=== PATIENT | female | born 1965 | race Caucasian/White ===

== ENCOUNTER 2020-06-10 08:36 | Outpatient (REF) | payer OTHER, SELFPAY ==
[2020-06-10 11:03] LABS: MANUAL DIFF FLAG NO
[2020-06-10 11:09] LABS: Basophils Percent Auto 0.5 % (0-2); Eosinophils Absolute Auto 0.1 X10*3/uL (0.0-0.4); Eosinophils Percent Auto 1.6 % (0-4); Hematocrit 39.8 % (37-47); Hemoglobin 12.4 g/dl (12.0-16.0); Imm Gran Abs Auto 0.03 X10*3/uL (0.00-0.03); Imm Gran Pct Auto 0.4 % (0.0-0.4); Lymphocytes Absolute Auto 4.1 X10*3/uL (1.2-4.9); Lymphocytes Percent Auto 49.3 % (20-40); Mean Corpuscular HGB Conc 31.2 g/dl (31.0-35.0); Mean Corpuscular Hemoglobin 26.5 pg (27.0-33.0); Mean Platelet Volume 10.4 fL (9.4-12.3); Monocytes Absolute Auto 0.7 X10*3/uL (0.1-1.2); Monocytes Percent Auto 8.5 % (2-11); Neutrophils Absolute Auto 3.3 X10*3/uL (2.0-8.3); Neutrophils Percent Auto 39.7 % (45-73); Platelet Count 415 X10*3/uL (160-400); Red Blood Count 4.68 X10*6/uL (4.20-5.50); Red Cell Distribution Width 13.3 % (11.0-16.0); White Blood Count 8.3 X10*3/uL (4.8-10.8)
[2020-06-10 12:26] LABS: Alanine Aminotransferase 21 U/L (0-31); Albumin Level 4.6 g/dL (3.5-5.0); Alkaline Phosphatase 94 U/L (39-117); Anion Gap 14 (12-20); Aspartate Amino Transferase 18 U/L (5-31); Bilirubin Total 0.6 mg/dL (0.0-1.0); Blood Urea Nitrogen 20 mg/dL (9-16); Calcium 9.4 mg/dL (8.4-10.2); Carbon Dioxide 29 mmol/L (22-29); Chloride 100 mmol/L (96-108); Cholesterol 312 mg/dL; Estimated Glomerular Filt Rate > 60; Glucose Fasting 88 mg/dL (60-99); HDL Cholesterol 40 mg/dL; LDL Cholesterol Calculated 226 mg/dl; Potassium 4.3 mmol/l (3.3-5.1); Sodium 139 mmol/L (135-145); Total Protein 7.2 g/dL (6.5-8.0); Triglycerides 230 mg/dL
[2020-06-10 12:50] LABS: Ferritin 101 ng/mL (10-250); Vitamin D 25-OH Total 29.7 ng/mL (>30)
[2020-06-10 13:22] LABS: Vitamin B12 314 pg/mL (200-900)
== END 2020-06-10 08:37 | disposition home or self-care (01) ==
LOC: HO.WFDLDS 08:36
PROVIDERS: Visit Provider Internal Medicine
DX: I10 Essential (primary) hypertension (principal); E78.2 Mixed hyperlipidemia; M15.9 Polyosteoarthritis, unspecified; M79.605 Pain in left leg; M79.604 Pain in right leg
CPT/HCPCS: 36415; 80053; 80061; 82306; 82607; 82728; 85025

== ENCOUNTER 2020-07-02 07:59 | Outpatient (REF) | payer OTHER, SELFPAY ==
[2020-07-02 10:25] LABS: MANUAL DIFF FLAG NO
[2020-07-02 10:31] LABS: Basophils Percent Auto 0.5 % (0-2); Eosinophils Absolute Auto 0.1 X10*3/uL (0.0-0.4); Hematocrit 39.4 % (37-47); Hemoglobin 12.3 g/dl (12.0-16.0); Imm Gran Abs Auto 0.02 X10*3/uL (0.00-0.03); Imm Gran Pct Auto 0.3 % (0.0-0.4); Lymphocytes Absolute Auto 3.5 X10*3/uL (1.2-4.9); Lymphocytes Percent Auto 46.1 % (20-40); Mean Corpuscular HGB Conc 31.2 g/dl (31.0-35.0); Mean Corpuscular Hemoglobin 26.8 pg (27.0-33.0); Mean Corpuscular Volume 85.8 fL (80-98); Mean Platelet Volume 10.4 fL (9.4-12.3); Monocytes Absolute Auto 0.8 X10*3/uL (0.1-1.2); Monocytes Percent Auto 10.3 % (2-11); Neutrophils Absolute Auto 3.2 X10*3/uL (2.0-8.3); Neutrophils Percent Auto 41.8 % (45-73); Platelet Count 402 X10*3/uL (160-400); Red Blood Count 4.59 X10*6/uL (4.20-5.50); Red Cell Distribution Width 13.4 % (11.0-16.0); White Blood Count 7.6 X10*3/uL (4.8-10.8)
[2020-07-02 11:17] LABS: C Reactive Protein 0.76 mg/dL (< or = 0.50)
[2020-07-02 12:01] LABS: Erythrocyte Sedimentation Rate 19 MM/HR (0-20)
== END 2020-07-02 08:00 | disposition home or self-care (01) ==
LOC: HO.WFDLDS 07:59
PROVIDERS: PCP Internal Medicine; Referring Provider Internal Medicine; Visit Provider Orthopaedic Surgery
DX: M25.551 Pain in right hip (principal)
CPT/HCPCS: 36415; 85025; 85652; 86140

== ENCOUNTER 2020-12-13 07:34 | Outpatient (REF) | payer OTHER, SELFPAY ==
[2020-12-13 11:01] LABS: Anion Gap 14 (12-20); Blood Urea Nitrogen 23 mg/dL (9-16); Calcium 9.9 mg/dL (8.4-10.2); Carbon Dioxide 28 mmol/L (22-29); Chloride 101 mmol/L (96-108); Cholesterol 315 mg/dL; Estimated Glomerular Filt Rate > 60; Glucose Fasting 89 mg/dL (60-99); HDL Cholesterol 47 mg/dL; LDL Cholesterol Calculated 233 mg/dl; Potassium 4.3 mmol/L (3.3-5.1); Sodium 139 mmol/L (135-145); Triglycerides 177 mg/dL
[2020-12-14 10:57] LABS: Vitamin D 25-OH Total 31.9 ng/mL (>30)
== END 2020-12-13 07:35 | disposition home or self-care (01) ==
LOC: HO.WFDLDS 07:34
PROVIDERS: Visit Provider Internal Medicine
DX: Z00.01 Encounter for general adult medical examination with abnormal findings (principal); E55.9 Vitamin D deficiency, unspecified; M19.90 Unspecified osteoarthritis, unspecified site; E78.9 Disorder of lipoprotein metabolism, unspecified; I10 Essential (primary) hypertension; E66.9 Obesity, unspecified
CPT/HCPCS: 36415; 80048; 80061; 82306

== ENCOUNTER → 2021-06-03 11:04 | Outpatient (BNVA) | payer OTHER, SELFPAY | PROVIDERS: PCP Internal Medicine; Visit Provider Dietitian, Registered | DX: E66.9 Obesity, unspecified (principal); Z68.36 Body mass index [BMI] 36.0-36.9, adult | CPT/HCPCS: 97802 ==

== ENCOUNTER 2021-07-30 10:06 | Outpatient (REF) | payer OTHER, SELFPAY ==
--- NOTE | ~2021-07-30 | XR_ITS ---
EXAMINATION: XR CHEST CLINICAL INFORMATION: Shortness of breath COMPARISON: Chest x-ray on 07/04/2019 TECHNIQUE: 2 views of the chest were obtained. FINDINGS: No significant abnormality is noted involving the heart, lungs, mediastinum, bony thorax or soft tissues. XR/XR chest 2V IMPRESSION: Unremarkable examination.
== END 2021-07-30 10:07 | disposition home or self-care (01) ==
LOC: HO.HMGCX 10:06
PROVIDERS: PCP Internal Medicine; Visit Provider Internal Medicine
DX: R06.02 Shortness of breath (principal)
CPT/HCPCS: 71046

== ENCOUNTER 2021-10-19 07:56 | Outpatient (REF) | payer OTHER, SELFPAY ==
[2021-10-19 11:34] LABS: Appearance Urine CLOUDY; Color Urine YELLOW; Glucose Urine UA NEG (NEG); Leukocyte Esterase Urine NEG (NEG); Nitrite Urine NEG (NEG); PH 5.5 (5.0-8.0); Specific Gravity - Urine 1.025 (1.005-1.025); Urine Blood NEG (NEG); Urine Ketones NEG (NEG); Urine Protein NEG (NEG-TRACE)
[2021-10-19 11:42] LABS: MANUAL DIFF FLAG NO
[2021-10-19 11:58] LABS: Basophils Percent Auto 0.4 % (0-2); Eosinophils Absolute Auto 0.1 X10*3/uL (0.0-0.4); Eosinophils Percent Auto 1.4 % (0-4); Hemoglobin 13.3 g/dl (12.0-16.0); Imm Gran Abs Auto 0.01 X10*3/uL (0.00-0.03); Imm Gran Pct Auto 0.1 % (0.0-0.4); Lymphocytes Absolute Auto 3.7 X10*3/uL (1.2-4.9); Mean Corpuscular HGB Conc 31.7 g/dl (31.0-35.0); Mean Corpuscular Hemoglobin 26.1 pg (27.0-33.0); Mean Corpuscular Volume 82.5 fL (80.0-98.0); Mean Platelet Volume 10.8 fL (9.4-12.3); Monocytes Absolute Auto 0.7 X10*3/uL (0.1-1.2); Monocytes Percent Auto 9.4 % (2-11); Neutrophils Absolute Auto 2.4 x10*3/uL (2.0-8.3); Neutrophils Percent Auto 34.7 % (45-73); Platelet Count 379 X10*3/uL (160-400); Red Blood Count 5.09 X10*6/uL (4.20-5.50); Red Cell Distribution Width 13.7 % (11.0-16.0); White Blood Count 6.9 X10*3/uL (4.8-10.8)
[2021-10-19 12:27] LABS: Alanine Aminotransferase 23 U/L (0-31); Albumin Level 4.7 g/dL (3.5-5.0); Alkaline Phosphatase 77 U/L (39-117); Anion Gap 13 (12-20); Aspartate Amino Transferase 21 U/L (5-31); Bilirubin Total 0.5 mg/dL (0.0-1.0); Blood Urea Nitrogen 20 mg/dL (9-16); C Reactive Protein 0.18 mg/dL (< or = 0.50); Calcium 10.1 mg/dL (8.4-10.2); Carbon Dioxide 30 mmol/L (22-29); Chloride 100 mmol/L (96-108); Cholesterol 323 mg/dL; Estimated Glomerular Filt Rate > 60; Glucose Fasting 100 mg/dL (60-99); HDL Cholesterol 44 mg/dL; LDL Cholesterol Calculated 235 mg/dl; Potassium 3.9 mmol/L (3.3-5.1); Rheumatoid Factor 40.2 IU/mL (<15.0); Sodium 139 mmol/L (135-145); Total Protein 7.5 g/dL (6.5-8.0); Triglycerides 221 mg/dL
[2021-10-19 12:37] LABS: Erythrocyte Sedimentation Rate 7 MM/HR (0-20)
[2021-10-19 12:41] LABS: TSH reflex Free T4 1.85 uIU/mL (0.32-4.0); Vitamin D 25-OH Total 18.4 ng/mL (>30)
[2021-10-21 13:46] LABS: Anti Nuclear Antibody Screen NEGATIVE (NEGATIVE)
== END 2021-10-19 07:57 | disposition home or self-care (01) ==
LOC: HO.WFDLDS 07:56
PROVIDERS: Visit Provider Internal Medicine
DX: M25.50 Pain in unspecified joint (principal); E78.00 Pure hypercholesterolemia, unspecified; E55.9 Vitamin D deficiency, unspecified; I10 Essential (primary) hypertension
CPT/HCPCS: 36415; 80053; 80061; 81003; 82306; 84443; 84550; 85025; 85652; 86038; 86039; 86140; 86431

== ENCOUNTER 2021-12-07 08:06 | Outpatient (REF) | payer OTHER, SELFPAY ==
--- NOTE | ~2021-12-07 | US_ITS ---
EXAMINATION: US ABDOMEN COMPLETE CLINICAL INFORMATION: Right upper quadrant pain. COMPARISON: Ultrasound abdomen complete 07/17/2019. TECHNIQUE: Real-time imaging of the abdominal viscera. FINDINGS: PANCREAS: Normal. ABDOMINAL AORTA: The proximal, mid, and distal segments are normal in caliber. INFERIOR VENA CAVA: Visualized portions are normal. LIVER: The liver is normal in size. The liver contour is normal. Parenchymal echogenicity is normal. No focal hepatic lesion. There is no intrahepatic biliary duct dilatation seen. GALLBLADDER: Normal. The gallbladder is physiologically distended without evidence of stones, sludge, polyps, wall thickening or pericholecystic fluid. COMMON BILE DUCT: Normal in caliber measuring 0.3 cm in diameter. RIGHT KIDNEY: Normal. No hydronephrosis. No renal calculi or focal parenchymal lesions. The kidney measures 10.1 cm in maximum dimension. LEFT KIDNEY: Normal. No hydronephrosis. No renal calculi or focal parenchymal lesions. The kidney measures 11.6 cm in maximum dimension. SPLEEN: Normal. The spleen measures 11.3 cm in maximum dimension. FREE FLUID: None. US/US abdomen complete IMPRESSION: No cholelithiasis or evidence of acute cholecystitis.
== END 2021-12-07 08:07 | disposition home or self-care (01) ==
LOC: HO.US 08:06
PROVIDERS: Visit Provider Internal Medicine
DX: R10.11 Right upper quadrant pain (principal)
CPT/HCPCS: 76700

== ENCOUNTER 2022-01-26 07:05 | Outpatient (REF) | payer OTHER, SELFPAY ==
[2022-01-26 11:42] LABS: Alanine Aminotransferase 22 U/L (0-31); Albumin Level 4.5 g/dL (3.5-5.0); Alkaline Phosphatase 78 U/L (39-117); Anion Gap 12 (12-20); Aspartate Amino Transferase 21 U/L (5-31); Bilirubin Total 0.5 mg/dL (0.0-1.0); Blood Urea Nitrogen 16 mg/dL (9-16); C Reactive Protein 0.29 mg/dL (< or = 0.50); Calcium 9.5 mg/dL (8.4-10.2); Carbon Dioxide 29 mmol/L (22-29); Chloride 101 mmol/L (96-108); Cholesterol 336 mg/dL; Estimated Glomerular Filt Rate > 60; Glucose Fasting 91 mg/dL (60-99); HDL Cholesterol 41 mg/dL; LDL Cholesterol Calculated 241 mg/dl; Potassium 4.3 mmol/L (3.3-5.1); Rheumatoid Factor 38.8 IU/mL (<15.0); Sodium 138 mmol/L (135-145); Triglycerides 271 mg/dL; Uric Acid 7.7 mg/dL (2.4-5.7)
[2022-01-26 12:09] LABS: TSH reflex Free T4 1.72 uIU/mL (0.32-4.0); Vitamin D 25-OH Total 28.2 ng/mL (>30)
[2022-01-26 12:28] LABS: Erythrocyte Sedimentation Rate 12 MM/HR (0-20)
[2022-01-30 17:22] LABS: Cyclic Citrullinated Peptide <16 UNITS
[2022-01-31 12:31] LABS: Anti Nuclear Antibody Screen NEGATIVE (NEGATIVE)
== END 2022-01-26 07:06 | disposition home or self-care (01) ==
LOC: HO.WFDLDS 07:05
PROVIDERS: Visit Provider Internal Medicine
DX: E78.00 Pure hypercholesterolemia, unspecified (principal); E55.9 Vitamin D deficiency, unspecified; M10.9 Gout, unspecified; M79.7 Fibromyalgia; M25.50 Pain in unspecified joint
CPT/HCPCS: 36415; 80053; 80061; 82306; 84443; 84550; 85652; 86038; 86039; 86140; 86200; 86431

== ENCOUNTER 2023-02-01 13:49 | Outpatient (AMB) | payer OTHER, SELFPAY ==
[2023-02-01 13:51] VITALS: BP 110/78; PULSE 70; O2SAT 98; BMI 36.2
--- NOTE | 2023-02-01 13:51 | MHC.PC.OV ---
Vital Signs 02/01/23 13:51 Height 5 ft 4 in Weight 211 lb 2 oz BMI 36.2 BP 110/78 Blood Pressure Location Lt brachial Position Sitting Pulse 70 Pulse Source Pulse Oximeter Pulse Oximetry (%) 98 Oxygen Delivery Method Room Air Intake Visit Reasons: ear infection Transportation Escort Required: No Accompanied by: Self / Same As Patient Allergies erythromycin base [ERYTHROMYCIN BASE] Allergy (Unknown, Verified 02/01/23 13:51) UNKNOWN latex [LATEX] Allergy (Unknown, Verified 02/01/23 13:51) UNKNOWN meperidine [From DEMEROL] Allergy (Unknown, Verified 02/01/23 13:51) UNKNOWN statin Allergy (Intermediate, Uncoded 08/30/22 17:19) joint pains, lethargic Tobacco use date assessed: 02/01/23 Dental Screening Dental Screen Date: 02/01/23 Did you have a dental visit in the last 12 months?: Yes Did you have a dental problem in the last 6 months where you did not have access to dental care?: No Was dental information given to patient?: Patient has dentist HPI ear infection HPI Details left ear pain for a few weeks [facility] Medical History Benign essential hypertension Coronary artery disease GERD (gastroesophageal reflux disease) Hypertension, essential Lumbar spinal stenosis Obesity (BMI 30-39.9) Osteoarthritis Pure hypercholesterolemia RUQ abdominal pain Surgical History History of section History of ear surgery History of hip surgery History of knee surgery History of partial hysterectomy History of tonsillectomy Hx of heart artery stent (~05/18/22) Hx of lumbosacral spine surgery (~2018) S/P total left hip arthroplasty (~01/21/21) S/P total right hip arthroplasty (~09/2020) Family History Father CVD (cardiovascular disease) History of quadruple bypass Mother CVD (cardiovascular disease) Melanoma Brother No problems noted. Brother No problems noted. Son No problems noted. Son No problems noted. Paternal Aunt Breast cancer Social History Housing: House Alcohol intake: current Alcohol intake frequency: holidays/special occasions only Patient Tobacco Use Status: Never used Tobacco e-Cigarette/Vaping Use: Never Used Second Hand Smoke Exposure: No service: No Current occupational status: employed Current occupational exposures/hazards: No Cognitive needs: No Hearing needs: No Vision needs: Yes Questionnaire PHQ-9 Over the last 2 weeks, how often have you been bothered by any of the following problems? 1. Little interest or pleasure in doing things: not at all 2. Feeling down, depressed, or hopeless: not at all 3. Trouble falling or staying asleep, or sleeping too much: not at all 4. Feeling tired or having little energy: not at all 5. Poor appetite or overeating: not at all 6. Feeling bad about yourself - or that you are a failure or have let yourself or your family down: not at all 7. Trouble concentrating on things, such as reading the newspaper or watching television: not at all 8. Moving or speaking so slowly that other people could have noticed. Or the opposite - being so fidgety or restless that you have been moving around a lot more than usual: not at all 9. Thoughts that you would be better off or of hurting yourself in some way: not at all Total score: 0 Depression Screening Interpretation: Negative 37321 - PHQ-9 Billing: Yes Source: Developed by Drs. Hernando Lilly, Macy Sousa, Stevie Sloan and colleagues, with an educational joseline from [employer]. Thrive Questionnaire Date Thrive assessed: 02/01/23 I am a: Patient What is your living situation today?: I have a steady place to live Within the past 12 months, did the food you bought not last and you didn't have the money to get more?: Never true Within the past 12 months, did you worry whether your food would run out before you got money to buy more?: Never true Do you have trouble paying for medicines?: No Do you have trouble getting transportation to medical appointments?: No Do you have trouble paying your heating and electricity bill?: No Do you have trouble taking care of your child, family member or friend?: No Do you have trouble with day-to-day activities such as bathing, preparing meals, shopping, managing finances, etc.?: No Are you currently unemployed and looking for a job?: No Are you interested in more education?: No Please select the resources that you would like help with: None Currently or been in a relationship where the following occur: no concerns reported AUDIT C Alcohol Use Questionnaire (AUDIT-C) 1. How often do you have a drink containing alcohol?: Monthly or less 2. How many drinks containing alcohol do you have on a typical day when you are drinking?: 1 or 2 3. How often do you have six or more drinks on one occasion?: Never Total Score: 1 Score Reviewed/Action Taken: Yes YARELI-7 AMB Questionnaire YARELI-7 Date YARELI - 7 assessed: 02/01/23 Feeling nervous, anxious, or on edge: 0 = Not at all Not being able to stop or control worryin = Not at all Worrying too much about different things: 0 = Not at all Trouble relaxin = Not at all Being so restless that it is hard to sit still: 0 = Not at all Becoming easily annoyed or irritable: 0 = Not at all Feeling afraid as if something awful might happen: 0 = Not at all Total YARELI-7 score (0-4 normal; 5-9 mild; 10-14 moderate; 15-21 severe): 0 Source: Developed by Drs. Hernando Lilly, aMcy Sousa, Stevie Sloan and colleagues, with an educational joseline from [employer]. Review of Systems Const Denies chills, Denies headache(s) and Denies weight loss ENT Denies headache(s) Card Denies chest pain, Denies syncope, Denies irregular heart rhythm and Denies dyspnea Resp Denies chest congestion, Denies cough and Denies dyspnea GI Denies abdominal pain, Denies change in stool character, Denies nausea and Denies vomiting Musc Denies deformity and Denies joint swelling Neuro Denies syncope and Denies headache(s) Physical exam (Primary Care) Vital Signs: Last Vital Signs Pulse 70 02/01/23 13:51 BP 110/78 02/01/23 13:51 Pulse Ox 98 02/01/23 13:51 Oxygen Delivery Method Room Air 02/01/23 13:51 BMI result Body Mass Index 36.2 Tobacco/Smoking Status: Tobacco use Status Tobacco use date assessed 08/30/22 08/30/22 16:19 Patient Tobacco Use Status Never used Tobacco 08/30/22 16:19 e-Cigarette/Vaping Use Never Used 08/30/22 16:19 Depression Screening Interpretation: Negative Thrive Assessment: Date of Thrive Assessment Date Thrive assessed 08/30/22 08/30/22 16:19 Currently or been in a relationship where the following occur: no concerns reported Const General: cooperative, comfortable and no acute distress HENMT Other: left ear inflam Eyes General: appearance normal, both eyes and all related structures Neck Neck: Yes normal visual inspection Assessment and Plan Assessment & Plan (1) Ear pain: Code(s): H92.09 - Otalgia, unspecified ear Plan: rx sent Medications: New amoxicillin 250 mg PO Q8H 30 caps 0RF Coding Level of Care Code Est Pt Level 3 (17463) Diagnoses Ear pain H92.09
== END 2023-02-01 14:57 | disposition home or self-care (01) ==
PROVIDERS: PCP Internal Medicine; Visit Provider Internal Medicine
DX: H92.09 Otalgia, unspecified ear (principal)
CPT/HCPCS: 99213

== ENCOUNTER 2023-02-27 16:46 | Outpatient (AMB) | payer OTHER, SELFPAY ==
[2023-02-27 16:46] VITALS: BP 128/80; PULSE 75; O2SAT 98; BMI 36.4
--- NOTE | 2023-02-27 16:46 | MHC.PC.OV ---
Vital Signs 02/27/23 16:46 Height 5 ft 4 in Weight 212 lb BMI 36.4 BP 128/80 Blood Pressure Location Lt brachial Position Sitting Pulse 75 Pulse Source Pulse Oximeter Pulse Oximetry (%) 98 Oxygen Delivery Method Room Air Intake Visit Reasons: CAD, hyperlipidemia Electrical Continuity Tester Required: No Accompanied by: Self / Same As Patient Allergies erythromycin base [ERYTHROMYCIN BASE] Allergy (Unknown, Verified 02/27/23 17:08) UNKNOWN latex [LATEX] Allergy (Unknown, Verified 02/27/23 17:08) UNKNOWN meperidine [From DEMEROL] Allergy (Unknown, Verified 02/27/23 17:08) UNKNOWN statin Allergy (Intermediate, Uncoded 02/27/23 17:08) joint pains, lethargic Medication List - Last Reconciled 02/27/23 by Vinny Avila MD aspirin (Adult Aspirin Regimen) 81 mg PO DAILY evolocumab (Repatha SureClick) 140 mg subcut Q2W hydrochlorothiazide 12.5 mg (1/2 x 25 mg) PO DAILY metoprolol tartrate 50 mg PO BID multivitamin (Daily Multi-Vitamin tablet) 1 tab PO DAILY ticagrelor (Brilinta) 90 mg PO BID Tobacco use date assessed: 02/27/23 Dental Screening Dental Screen Date: 02/27/23 Did you have a dental visit in the last 12 months?: Yes Did you have a dental problem in the last 6 months where you did not have access to dental care?: No Was dental information given to patient?: Patient has dentist HPI CAD, hyperlipidemia HPI Details Patient comes in today for her follow up visit States that she feels okay Relates that she came into the office for left ear pain last month - was seen by Dr. Bermudez and prescribed Amoxicillin 250 mg Q 8 hours x 5 days, which she states helped slightly States that she currently still has recurrent left ear pain Was able to schedule an appointment with ENT but states that they cannot get her in until sometime in April 2023 although she is on a cancellation list and is hoping that she can be seen sooner States that she feels okay otherwise She denies any fever or sore throat; denies any headaches or dizziness Denies any chest pains, no SOB No nausea/vomiting, no abdominal pain No change in bowel habits noted Had some follow up labs done at [facility] back in September 2022 - total cholesterol then was around 151 mg/dl, TG at 207 mg/dl, HDL at 47 mg/dl and LDL cholesterol at 63 mg/dl States that she has follow up appt with cardiology at [facility] and with Dr. Garcia for hematology follow up scheduled in April 2023 as well [facility] Medical History Benign essential hypertension Coronary artery disease GERD (gastroesophageal reflux disease) Hypertension, essential Lumbar spinal stenosis Obesity (BMI 30-39.9) Osteoarthritis Pure hypercholesterolemia RUQ abdominal pain Surgical History History of section History of ear surgery History of hip surgery History of knee surgery History of partial hysterectomy History of tonsillectomy Hx of heart artery stent (~05/18/22) Hx of lumbosacral spine surgery (~2018) S/P total left hip arthroplasty (~01/21/21) S/P total right hip arthroplasty (~09/2020) Family History Father CVD (cardiovascular disease) History of quadruple bypass Mother CVD (cardiovascular disease) Melanoma Brother No problems noted. Brother No problems noted. Son No problems noted. Son No problems noted. Paternal Aunt Breast cancer Social History Housing: House Alcohol intake: current Alcohol intake frequency: holidays/special occasions only Patient Tobacco Use Status: Never used Tobacco e-Cigarette/Vaping Use: Never Used Second Hand Smoke Exposure: No service: No Current occupational status: employed Current occupational exposures/hazards: No Cognitive needs: No Hearing needs: No Vision needs: Yes Questionnaire PHQ-9 Over the last 2 weeks, how often have you been bothered by any of the following problems? 1. Little interest or pleasure in doing things: not at all 2. Feeling down, depressed, or hopeless: not at all 3. Trouble falling or staying asleep, or sleeping too much: not at all 4. Feeling tired or having little energy: not at all 5. Poor appetite or overeating: not at all 6. Feeling bad about yourself - or that you are a failure or have let yourself or your family down: not at all 7. Trouble concentrating on things, such as reading the newspaper or watching television: not at all 8. Moving or speaking so slowly that other people could have noticed. Or the opposite - being so fidgety or restless that you have been moving around a lot more than usual: not at all 9. Thoughts that you would be better off or of hurting yourself in some way: not at all Total score: 0 Depression Screening Interpretation: Negative [id number] - PHQ-9 Billing: Yes Source: Developed by Drs. Hernando Lilly, Macy Sousa, Stevie Sloan and colleagues, with an educational joseline from [employer]. Thrive Questionnaire Date Thrive assessed: 02/27/23 I am a: Patient What is your living situation today?: I have a steady place to live Within the past 12 months, did the food you bought not last and you didn't have the money to get more?: Never true Within the past 12 months, did you worry whether your food would run out before you got money to buy more?: Never true Do you have trouble paying for medicines?: No Do you have trouble getting transportation to medical appointments?: No Do you have trouble paying your heating and electricity bill?: No Do you have trouble taking care of your child, family member or friend?: No Do you have trouble with day-to-day activities such as bathing, preparing meals, shopping, managing finances, etc.?: No Are you currently unemployed and looking for a job?: No Are you interested in more education?: No Please select the resources that you would like help with: None Currently or been in a relationship where the following occur: no concerns reported AUDIT C Alcohol Use Questionnaire (AUDIT-C) 1. How often do you have a drink containing alcohol?: Monthly or less 2. How many drinks containing alcohol do you have on a typical day when you are drinking?: 1 or 2 3. How often do you have six or more drinks on one occasion?: Never Total Score: 1 Score Reviewed/Action Taken: Yes YARELI-7 AMB Questionnaire YARELI-7 Date YARELI - 7 assessed: 02/27/23 Feeling nervous, anxious, or on edge: 0 = Not at all Not being able to stop or control worryin = Not at all Worrying too much about different things: 0 = Not at all Trouble relaxin = Not at all Being so restless that it is hard to sit still: 0 = Not at all Becoming easily annoyed or irritable: 0 = Not at all Feeling afraid as if something awful might happen: 0 = Not at all Total YARELI-7 score (0-4 normal; 5-9 mild; 10-14 moderate; 15-21 severe): 0 Source: Developed by Drs. Hernando Lilly, Macy Sousa, Stevie Sloan and colleagues, with an educational joseline from [employer]. Review of Systems Const Denies fatigue, Denies fever(s) and Denies headache(s) ENT Denies dysphagia, Denies dizziness, Reports otalgia (in the left ear), Denies headache(s), Denies odynophagia and Denies sore throat Card Denies chest pain, Denies palpitations and Denies dyspnea Resp Denies cough and Denies dyspnea GI Denies abdominal pain, Denies constipation, Denies dysphagia, Denies heartburn, Denies diarrhea, Denies nausea, Denies odynophagia and Denies vomiting Denies difficulty voiding, Denies nocturia and Denies dysuria Musc Reports back pain (on and off) Neuro Denies dizziness and Denies headache(s) Endo Denies fatigue and Denies palpitations Physical exam (Primary Care) Vital Signs: Last Vital Signs Pulse 75 02/27/23 16:46 BP 128/80 02/27/23 16:46 Pulse Ox 98 02/27/23 16:46 Oxygen Delivery Method Room Air 02/27/23 16:46 BMI result Body Mass Index 36.4 Tobacco/Smoking Status: Tobacco use Status Tobacco use date assessed 02/27/23 02/27/23 16:52 Patient Tobacco Use Status Never used Tobacco 02/27/23 16:52 e-Cigarette/Vaping Use Never Used 02/27/23 16:52 PHQ-9: PHQ-9 Score PHQ-9: Total score 0 02/27/23 17:08 Depression Screening Interpretation: Negative Thrive Assessment: Date of Thrive Assessment Date Thrive assessed 02/27/23 02/27/23 16:52 Currently or been in a relationship where the following occur: no concerns reported Const General: no acute distress and alert HENMT Ears: TM's normal bilaterally and EAC's normal Throat: Yes posterior oropharynx normal, Yes tonsils normal (no TP congestion) and No postnasal drainage Neck Neck: Yes no lymphadenopathy and Yes supple Resp Auscultation: clear to auscultation bilaterally, no rales and no wheezes Cardio Rate: regular rate Rhythm: regular rhythm Heart sounds: no murmurs GI Palpation (GI): Soft to palpation and nontender Auscultation: normal bowel sounds Skin Rashes: no rashes Extrem General: Yes no clubbing, cyanosis or edema Assessment and Plan Assessment & Plan (1) Coronary artery disease: Comment: S/P PCI with stenting (FABRIZIO) of the RCA on 05/18/2022 Code(s): I25.10 - Atherosclerotic heart disease of [place] coronary artery without angina pectoris Qualifiers: Associated angina: with unspecified form of angina Coronary Disease-Associated Artery/Lesion type: [place] artery [place] vs. transplanted heart: [place] heart Qualified Code(s): I25.119 - Atherosclerotic heart disease of [place] coronary artery with unspecified angina pectoris Plan: S/P PCI with stenting (FABRIZIO) of the RCA on 05/18/22; completed cardiac rehab earlier this year Continue Aspirin 81 mg QD, Brilinta 90 mg BID and Metoprolol 50 mg BID Continue HCTZ 25 mg 1/2 tablet QD Follow up with cardiology (Dr. Leal) as scheduled (2) Pure hypercholesterolemia: Comment: Unable to tolerate statins in the past Code(s): E78.00 - Pure hypercholesterolemia, unspecified Plan: Reinforced low cholesterol diet Has been unable to tolerate multiple statins in the past (myalgia) as well as Ezetimibe Is presently on injections of Repatha every 2 weeks and has been tolerating her Rx well so far with no acute issues Had her fasting lipid profile last done at [facility] back in September 2022 and results are as follows - TC 151, TG 207, HDL 47, LDL 63 Will have patient recheck labs and fasting lipids again in a few months for follow-up - advised that she can get these done together with any other labs from Cardiology and Hematology at the same time (3) Benign essential hypertension: Code(s): I10 - Essential (primary) hypertension Plan: Reinforced low sodium diet - goal is systolic BP of 120 mm or less Continue Metoprolol 50 mg BID and HCTZ 25 mg 1/2 tablet (12.5 mg) QD She is reminded to monitor her BP regularly (4) Lymphocytosis: Code(s): D72.820 - Lymphocytosis (symptomatic) Plan: Has been referred to and seen by Dr. 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 Garcia once or twice a year to monitor for any progression of her condition (5) Elevated rheumatoid factor: Code(s): R76.8 - Other specified abnormal immunological findings in serum Plan: Rheumatoid factor has been elevated but her CCP Ab was normal and her ESR and CRP levels were also low when previously checked Patient was reasssured that based on these results, she DOES NOT appear to have any evidence of RA at present and we will continue to monitor these regularly/yearly for any changes Can also consider referral to rheumatology for further evaluation if anything changes (6) Left ear pain: Code(s): H92.02 - Otalgia, left ear Plan: Was treated with oral Amoxicillin 250 mg TID last month with little relief Will start patient empirically on Ciprodex ear drops 4 drops into the left ear BID x 7 days She had an appointment scheduled to see ENT in April 2023 for further evaluation of her ear symptoms; she is on a cancellation list to be seen sooner if someone cancels the appointment (7) Vitamin D deficiency: Code(s): E55.9 - Vitamin D deficiency, unspecified Plan: Continue Vitamin D3 2000 units QD (8) Osteoarthritis: Comment: S/P bilateral hip arthroplasty at [facility] in [place], [place] Code(s): M19.90 - Unspecified osteoarthritis, unspecified site Qualifiers: Osteoarthritis location: unspecified site Osteoarthritis type: primary Qualified Code(s): M19.91 - Primary osteoarthritis, unspecified site Plan: Was taken off Celecoxib 200 mg QD after her PCI Is now taking OTC Tylenol PRN for pain (9) Lumbar spinal stenosis: Comment: S/P laminectomy at [facility] in [place], [place] in 2019 Code(s): M48.061 - Spinal stenosis, lumbar region without neurogenic claudication Qualifiers: Neurogenic claudication status: without neurogenic claudication Qualified Code(s): M48.061 - Spinal stenosis, lumbar region without neurogenic claudication Plan: Reinforced activity and weight-lifting restrictions (10) Hyperuricemia: Code(s): E79.0 - Hyperuricemia without signs of inflammatory arthritis and tophaceous disease Plan: Patient remains asymptomatic Her serum uric acid level has improved slightly from previous on her most recent labs Reinforced low purine diet (11) GERD (gastroesophageal reflux disease): Code(s): K21.9 - Gastro-esophageal reflux disease without esophagitis Qualifiers: Esophagitis presence: without esophagitis Qualified Code(s): K21.9 - Gastro-esophageal reflux disease without esophagitis Plan: Dietary restrictions reinforced Continue Pantoprazole 40 mg QD Advised again that if her symptoms persist despite Rx and dietary restrictions, will need referral to GI for further evaluation and management and possible EGD (12) Obesity (BMI 30-39.9): Code(s): E66.9 - Obesity, unspecified Plan: Reinforced diet/exercise as tolerated/lose weight Plan Follow up in 4 months Orders: Orders Complete Blood Count Auto Diff 1 Month I10 - Essential (primary) hypertension Comprehensive [place]. Panel Fast 1 Month E78.00 - Pure hypercholesterolemia, unspecified Lipid Panel 1 Month E78.00 - Pure hypercholesterolemia, unspecified TSH reflex Free T4 1 Month E78.00 - Pure hypercholesterolemia, unspecified UA CC w/rflx Micro + Cult 1 Month R30.0 - Dysuria Vitamin D 25-OH Total 1 Month E55.9 - Vitamin D deficiency, unspecified C Reactive Protein 1 Month D72.820 - Lymphocytosis (symptomatic), M25.50 - Pain in unspecified joint, R76.8 - Other specified abnormal immunological findings in serum Erythrocyte Sedimentation Rate 1 Month D72.820 - Lymphocytosis (symptomatic), M25.50 - Pain in unspecified joint, M79.7 - Fibromyalgia, R76.8 - Other specified abnormal immunological findings in serum Medications: New ciprofloxacin-dexamethasone 0.3-0.1 % (Ciprodex) 4 drps otic (ears) BID 7 days 7.5 mL 0RF Coding Level of Care Code Est Pt Level 4 (49273) Diagnoses Coronary artery disease I25.119 Associated angina: with unspecified form of angina Coronary Disease-Associated Artery/Lesion type: [place] artery [place] vs. transplanted heart: [place] heart Pure hypercholesterolemia E78.00 Benign essential hypertension I10 Lymphocytosis D72.820 Elevated rheumatoid factor R76.8 Left ear pain H92.02 Vitamin D deficiency E55.9 Osteoarthritis M19.91 Osteoarthritis location: unspecified site Osteoarthritis type: primary Lumbar spinal stenosis M48.061 Neurogenic claudication status: without neurogenic claudication Hyperuricemia E79.0 GERD (gastroesophageal reflux disease) K21.9 Esophagitis presence: without esophagitis Obesity (BMI 30-39.9) E66.9
== END 2023-02-27 17:38 | disposition home or self-care (01) ==
LOC: HO.HMGH 16:46
PROVIDERS: PCP Internal Medicine; Visit Provider Internal Medicine
DX: I10 Essential (primary) hypertension (principal); I25.119 Atherosclerotic heart disease of native coronary artery with unspecified angina pectoris; E55.9 Vitamin D deficiency, unspecified; K21.9 Gastro-esophageal reflux disease without esophagitis; E78.00 Pure hypercholesterolemia, unspecified; R76.8 Other specified abnormal immunological findings in serum; D72.820 Lymphocytosis (symptomatic); H92.02 Otalgia, left ear; M19.91 Primary osteoarthritis, unspecified site; M48.061 Spinal stenosis, lumbar region without neurogenic claudication; E79.0 Hyperuricemia without signs of inflammatory arthritis and tophaceous disease; E66.9 Obesity, unspecified
CPT/HCPCS: 99214

== ENCOUNTER 2023-08-07 16:50 | Outpatient (AMB) | payer OTHER, SELFPAY ==
[2023-08-07 16:52] VITALS: BP 124/70; PULSE 80; O2SAT 97; BMI 37.0
--- NOTE | 2023-08-07 16:52 | MHC.PC.OV ---
Vital Signs 08/07/23 16:52 Height 5 ft 4 in Weight 215 lb 6 oz BMI 37.0 BP 124/70 Blood Pressure Location Lt brachial Position Sitting Pulse 80 Pulse Source Pulse Oximeter Pulse Oximetry (%) 97 Oxygen Delivery Method Room Air Intake Visit Reasons: CAD, hyperlipidemia, lymphocytosis Guide Foreign Tour Required: No Accompanied by: Self / Same As Patient Allergies erythromycin base [ERYTHROMYCIN BASE] Allergy (Unknown, Verified 08/07/23 17:03) UNKNOWN latex [LATEX] Allergy (Unknown, Verified 08/07/23 17:03) UNKNOWN meperidine [From DEMEROL] Allergy (Unknown, Verified 08/07/23 17:03) UNKNOWN statin Allergy (Intermediate, Uncoded 08/07/23 17:03) joint pains, lethargic Medication List - Last Reconciled 08/07/23 by Vinny Avila MD aspirin (Adult Aspirin Regimen) 81 mg PO DAILY colchicine 0.6 mg PO BID PRN evolocumab (Repatha SureClick) 140 mg subcut Q2W hydrochlorothiazide 12.5 mg (1/2 x 25 mg) PO DAILY metoprolol tartrate 50 mg PO BID multivitamin (Daily Multi-Vitamin tablet) 1 tab PO DAILY Tobacco use date assessed: 08/07/23 Dental Screening Dental Screen Date: 08/07/23 Did you have a dental visit in the last 12 months?: Yes Did you have a dental problem in the last 6 months where you did not have access to dental care?: No Was dental information given to patient?: Patient has dentist HPI CAD, hyperlipidemia, lymphocytosis HPI Details Patient comes in today for her follow up visit States that she feels okay She denies any headaches or dizziness Denies any chest pains, no SOB No nausea/vomiting, no abdominal pain No change in bowel habits noted Patient brought in copies of some of her lab results and OV notes from her orthopedic surgeon, Dr. Nixon Good, from when he saw patient a couple of months ago PFSH Medical History (Updated 08/12/23 @ 19:25 by Vinny Avila MD) Cervical spondylosis Coronary artery disease GERD (gastroesophageal reflux disease) RUQ abdominal pain Pure hypercholesterolemia Lumbar spinal stenosis Benign essential hypertension Obesity (BMI 30-39.9) Osteoarthritis Hypertension, essential Surgical History Hx of heart artery stent (~05/18/22) S/P total left hip arthroplasty (~01/21/21) S/P total right hip arthroplasty (~09/2020) Hx of lumbosacral spine surgery (~2018) History of partial hysterectomy History of knee surgery History of ear surgery History of tonsillectomy History of hip surgery History of section Family History Father CVD (cardiovascular disease) History of quadruple bypass Mother CVD (cardiovascular disease) Melanoma Brother No problems noted. Brother No problems noted. Son No problems noted. Son No problems noted. Paternal Aunt Breast cancer Social History Housing: House Alcohol intake: current Alcohol intake frequency: holidays/special occasions only Patient Tobacco Use Status: Never used Tobacco e-Cigarette/Vaping Use: Never Used Second Hand Smoke Exposure: No service: No Current occupational status: employed Current occupational exposures/hazards: No Cognitive needs: No Hearing needs: No Vision needs: Yes Questionnaire PHQ-9 Over the last 2 weeks, how often have you been bothered by any of the following problems? 1. Little interest or pleasure in doing things: not at all 2. Feeling down, depressed, or hopeless: not at all 3. Trouble falling or staying asleep, or sleeping too much: not at all 4. Feeling tired or having little energy: not at all 5. Poor appetite or overeating: not at all 6. Feeling bad about yourself - or that you are a failure or have let yourself or your family down: not at all 7. Trouble concentrating on things, such as reading the newspaper or watching television: not at all 8. Moving or speaking so slowly that other people could have noticed. Or the opposite - being so fidgety or restless that you have been moving around a lot more than usual: not at all 9. Thoughts that you would be better off or of hurting yourself in some way: not at all Total score: 0 Depression Screening Interpretation: Negative Depression Screening Done: Yes 40749 - PHQ-9 Billing: Yes Source: Developed by Drs. Hernando Lilly, Stevie Myers and colleagues, with an educational joseline from [employer]. Thrive Questionnaire Date Thrive assessed: 08/07/23 I am a: Patient What is your living situation today?: I have a steady place to live Within the past 12 months, did the food you bought not last and you didn't have the money to get more?: Never true Within the past 12 months, did you worry whether your food would run out before you got money to buy more?: Never true Do you have trouble paying for medicines?: No Do you have trouble getting transportation to medical appointments?: No Do you have trouble paying your heating and electricity bill?: No Do you have trouble taking care of your child, family member or friend?: No Do you have trouble with day-to-day activities such as bathing, preparing meals, shopping, managing finances, etc.?: No Are you currently unemployed and looking for a job?: No Are you interested in more education?: No Please select the resources that you would like help with: None Currently or been in a relationship where the following occur: no concerns reported THRIVE Score: 0 AUDIT C Alcohol Use Questionnaire (AUDIT-C) 1. How often do you have a drink containing alcohol?: Monthly or less 2. How many drinks containing alcohol do you have on a typical day when you are drinking?: 1 or 2 3. How often do you have six or more drinks on one occasion?: Never Total Score: 1 Score Reviewed/Action Taken: Yes YARELI-7 AMB Questionnaire YARELI-7 Date YARELI - 7 assessed: 08/07/23 Feeling nervous, anxious, or on edge: 0 = Not at all Not being able to stop or control worryin = Not at all Worrying too much about different things: 0 = Not at all Trouble relaxin = Not at all Being so restless that it is hard to sit still: 0 = Not at all Becoming easily annoyed or irritable: 0 = Not at all Feeling afraid as if something awful might happen: 0 = Not at all Total YARELI-7 score (0-4 normal; 5-9 mild; 10-14 moderate; 15-21 severe): 0 Source: Developed by Macy Jerome Kurt Kroenke and colleagues, with an educational joseline from [employer]. Review of Systems Const Denies chills, Denies fatigue, Denies fever(s) and Denies headache(s) ENT Denies dysphagia, Denies dizziness, Denies otalgia, Denies headache(s), Reports neck pain, Denies odynophagia and Denies sore throat Card Denies chest pain, Denies palpitations and Denies dyspnea Resp Denies cough and Denies dyspnea GI Denies abdominal pain, Denies constipation, Denies dysphagia, Denies heartburn, Denies diarrhea, Denies nausea, Denies odynophagia and Denies vomiting Denies difficulty voiding, Denies nocturia and Denies dysuria Musc Reports back pain (on and off), Reports neck pain and Reports numbness (of the left thumb) Skin/Breast Denies rash Neuro Denies dizziness, Denies headache(s) and Reports numbness (of the left thumb) Endo Denies fatigue and Denies palpitations Physical exam (Primary Care) Vital Signs: Last Vital Signs Pulse 80 08/07/23 16:52 BP 124/70 08/07/23 16:52 Pulse Ox 97 08/07/23 16:52 Oxygen Delivery Method Room Air 08/07/23 16:52 BMI result Body Mass Index 37.0 Tobacco/Smoking Status: Tobacco use Status Tobacco use date assessed 08/07/23 08/07/23 16:58 Patient Tobacco Use Status Never used Tobacco 08/07/23 16:58 e-Cigarette/Vaping Use Never Used 08/07/23 16:58 PHQ-9: PHQ-9 Score PHQ-9: Total score 0 08/08/23 09:12 Depression Screening Interpretation: Negative Thrive Assessment: Date of Thrive Assessment Date Thrive assessed 08/07/23 08/07/23 16:58 Currently or been in a relationship where the following occur: no concerns reported Const General: no acute distress and alert HENMT Ears: TM's normal bilaterally and EAC's normal Throat: Yes posterior oropharynx normal and Yes tonsils normal (no TP congestion) Neck Neck: Yes no lymphadenopathy and Yes supple Resp Auscultation: clear to auscultation bilaterally, no rales and no wheezes Cardio Rate: regular rate Rhythm: regular rhythm Heart sounds: no murmurs GI Palpation (GI): Soft to palpation and nontender Auscultation: normal bowel sounds General: Yes no CVA tenderness Back/Spine/Pelvis Back: no CVA tenderness Cervical Spine: Cervical spine tenderness Thoracic/Lumbar Spine: lumbar spinal tenderness Skin Rashes: no rashes Extrem General: Yes no clubbing, cyanosis or edema Assessment and Plan Assessment & Plan (1) Coronary artery disease: Comment: S/P PCI with stenting (FABRIZIO) of the RCA on 05/18/2022 Code(s): I25.10 - Atherosclerotic heart disease of [place] coronary artery without angina pectoris Qualifiers: Associated angina: with unspecified form of angina Coronary Disease-Associated Artery/Lesion type: [place] artery [place] vs. transplanted heart: [place] heart Qualified Code(s): I25.119 - Atherosclerotic heart disease of [place] coronary artery with unspecified angina pectoris Plan: S/P PCI with stenting (FABRIZIO) of the RCA on 05/18/22; completed cardiac rehab earlier last year Continue Aspirin 81 mg QD, Brilinta 90 mg BID and Metoprolol 50 mg BID Continue HCTZ 25 mg 1/2 tablet QD Follow up with cardiology (Dr. Leal) as scheduled (2) Pure hypercholesterolemia: Comment: Unable to tolerate statins in the past Code(s): E78.00 - Pure hypercholesterolemia, unspecified Plan: Results of her labs done back on 07/14/2023 reviewed and discussed with patient - patient brought in copies of her recent test results for review Her total cholesterol is currently at 157 mg/dl, serum triglycerides at 184 mg/dl, HDL cholesterol at 46 mg/dl and LDL cholesterol at 74 mg/dl Reinforced low cholesterol diet Continue Repatha 140 mg SQ every 2 weeks She has been unable to tolerate Ezetimibe and multiple statins in the past (myalgia) Will have patient recheck labs and fasting lipids again in 4 months for follow-up - advised again that she can get these done together with any other labs from Cardiology and Hematology at the same time when they are all due close to each other (3) Benign essential hypertension: Code(s): I10 - Essential (primary) hypertension Plan: Reinforced low sodium diet - goal is systolic BP of 120 mm or less Continue Metoprolol 50 mg BID and HCTZ 25 mg 1/2 tablet (12.5 mg) QD She is reminded to monitor her BP regularly (4) Lymphocytosis: Code(s): D72.820 - Lymphocytosis (symptomatic) Plan: Has been referred to and seen by Dr. 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 Garcia once or twice a year to monitor for any progression of her condition (5) Elevated rheumatoid factor: Code(s): R76.8 - Other specified abnormal immunological findings in serum Plan: Rheumatoid factor has been elevated but her CCP Ab was normal and her ESR and CRP levels were also low when previously checked Patient was reassured that she DOES NOT have any evidence of RA at the time and we will continue to monitor these regularly/yearly for any changes Will also consider referral to rheumatology for further evaluation if anything changes (6) Vitamin D deficiency: Code(s): E55.9 - Vitamin D deficiency, unspecified Plan: Continue Vitamin D3 2000 units QD (7) Osteoarthritis: Comment: S/P bilateral hip arthroplasty at [facility] in [place], [place] Code(s): M19.90 - Unspecified osteoarthritis, unspecified site Qualifiers: Osteoarthritis location: unspecified site Osteoarthritis type: primary Qualified Code(s): M19.91 - Primary osteoarthritis, unspecified site Plan: Was taken off Celecoxib 200 mg QD after her PCI; has also been advised by cardiology to avoid all NSAIDs Is now taking OTC Tylenol PRN for pain (8) Lumbar spinal stenosis: Comment: S/P laminectomy at [facility] in [place], [place] in 2019 Code(s): M48.061 - Spinal stenosis, lumbar region without neurogenic claudication Qualifiers: Neurogenic claudication status: without neurogenic claudication Qualified Code(s): M48.061 - Spinal stenosis, lumbar region without neurogenic claudication Plan: Reinforced activity and weight-lifting restrictions (9) Cervical spondylosis: Code(s): M47.812 - Spondylosis without myelopathy or radiculopathy, cervical region Plan: Patient brought in a copy of her cervical spine x-rays done back in May 2023, which revealed (+) grade 1 retrolisthesis and degenrative spondylosis of the C5-C6 She was seen by orthopedics (Dr. Nixon Good)m who recommended physical therapy and gentle cervical traction for now Follow up with orthopedics as scheduled (10) Hyperuricemia: Code(s): E79.0 - Hyperuricemia without signs of inflammatory arthritis and tophaceous disease Plan: Patient remains asymptomatic Reinforced low purine diet (11) GERD (gastroesophageal reflux disease): Code(s): K21.9 - Gastro-esophageal reflux disease without esophagitis Qualifiers: Esophagitis presence: without esophagitis Qualified Code(s): K21.9 - Gastro-esophageal reflux disease without esophagitis Plan: Dietary restrictions reinforced Was on Pantoprazole 40 mg QD previously but states that she has not had to take Rx for a while now as her symptoms have been well-controlled Advised again that if her symptoms persist despite Rx and dietary restrictions, will need referral to GI for further evaluation and management and possible EGD (12) Obesity (BMI 30-39.9): Code(s): E66.9 - Obesity, unspecified Plan: Reinforced diet/exercise as tolerated/lose weight Plan Follow up in 4 months Orders: Orders Complete Blood Count Auto Diff 4 Months D72.820 - Lymphocytosis (symptomatic) Lipid Panel 4 Months E78.00 - Pure hypercholesterolemia, unspecified Vitamin D 25-OH Total 4 Months E55.9 - Vitamin D deficiency, unspecified Comprehensive [place]. Panel Fast 4 Months E78.00 - Pure hypercholesterolemia, unspecified TSH reflex Free T4 4 Months E78.00 - Pure hypercholesterolemia, unspecified UA CC w/rflx Micro + Cult 4 Months R30.0 - Dysuria Uric Acid 4 Months E79.0 - Hyperuricemia without signs of inflammatory arthritis and tophaceous disease Coding Level of Care Code Est Pt Level 4 (28593) Diagnoses Coronary artery disease involving [place] coronary artery of [place] heart with angina pectoris I25.119 Associated angina: with unspecified form of angina Coronary Disease-Associated Artery/Lesion type: [place] artery [place] vs. transplanted heart: [place] heart Pure hypercholesterolemia E78.00 Benign essential hypertension I10 Lymphocytosis D72.820 Elevated rheumatoid factor R76.8 Vitamin D deficiency E55.9 Primary osteoarthritis, unspecified site M19.91 Osteoarthritis location: unspecified site Osteoarthritis type: primary Spinal stenosis of lumbar region without neurogenic claudication M48.061 Neurogenic claudication status: without neurogenic claudication Cervical spondylosis M47.812 Hyperuricemia E79.0 Gastroesophageal reflux disease without esophagitis K21.9 Esophagitis presence: without esophagitis Obesity (BMI 30-39.9) E66.9
== END 2023-08-07 17:33 | disposition home or self-care (01) ==
PROVIDERS: PCP Internal Medicine; Visit Provider Internal Medicine
DX: I25.119 Atherosclerotic heart disease of native coronary artery with unspecified angina pectoris (principal); E78.00 Pure hypercholesterolemia, unspecified; E66.9 Obesity, unspecified; Z68.37 Body mass index [BMI] 37.0-37.9, adult; I10 Essential (primary) hypertension; D72.820 Lymphocytosis (symptomatic); R76.8 Other specified abnormal immunological findings in serum; E55.9 Vitamin D deficiency, unspecified; M19.91 Primary osteoarthritis, unspecified site; M48.061 Spinal stenosis, lumbar region without neurogenic claudication; M47.812 Spondylosis without myelopathy or radiculopathy, cervical region; E79.0 Hyperuricemia without signs of inflammatory arthritis and tophaceous disease
CPT/HCPCS: 99214

== ENCOUNTER 2023-12-04 16:51 | Outpatient (AMB) | payer OTHER, SELFPAY ==
[2023-12-04 16:54] VITALS: BP 128/80; PULSE 76; O2SAT 96; BMI 37.2
--- NOTE | 2023-12-04 16:54 | A.OFFPC_ITS ---
Vital Signs 12/04/23 16:54 Height 5 ft 4 in Weight 217 lb BMI 37.2 BP 128/80 Blood Pressure Location Lt brachial Position Sitting Pulse 76 Pulse Source Pulse Oximeter Pulse Oximetry (%) 96 Oxygen Delivery Method Room Air Intake Visit Reasons: 4 month f/u Brass Wind Instrument Maker: Not Required per policy Accompanied by: Self / Same As Patient Allergies adhesive tape Allergy (Intermediate, Verified 04/08/24 17:14) Skin Blisters erythromycin base [ERYTHROMYCIN BASE] Allergy (Intermediate, Verified 04/08/24 17:14) Nausea and Vomiting latex [LATEX] Allergy (Intermediate, Verified 04/08/24 17:14) Rash meperidine [From DEMEROL] Allergy (Intermediate, Verified 04/08/24 17:14) Palpitations statin Allergy (Intermediate, Uncoded 04/08/24 17:14) joint pains, lethargic Medication List - Last Reconciled 12/04/23 by Vinny Avila MD aspirin (Adult Aspirin Regimen) 81 mg PO DAILY colchicine 0.6 mg PO BID PRN evolocumab (Repatha SureClick) 140 mg subcut Q2W hydrochlorothiazide 12.5 mg (1/2 x 25 mg) PO DAILY metoprolol tartrate 50 mg PO BID multivitamin (Daily Multi-Vitamin tablet) 1 tab PO DAILY Tobacco use date assessed: 08/07/23 Dental Screening Dental Screen Date: 08/07/23 HPI 4 month f/u HPI Details Patient comes in today for her follow up visit States that she has noticed some swelling of her left leg and left foot over the past couple of days States that her left leg feels heavy at times recently; she has also noticed some tenderness over her left calf muscles for the past few days She denies any recent injury or trauma to her left leg and foot States that she feels okay otherwise She continues to experience frequent neck pain - she is following up with Dr. Nixon Good in [place] for this and continues to receive physical therapy and cervical traction, which she states have been helping somewhat She denies any headaches or dizziness Denies any chest pains, no SOB No nausea/vomiting, no abdominal pain No change in bowel habits noted Needs her HCTZ Rx refilled She had some follow up labs done but these were again with an outside facility so we do not have her results at this time for review States that she will be seeing Dr. Nguyễn in January 2024 and her repeat colonoscopy will likely be scheduled after her visit with him in a couple of months [facility] Medical History Cervical spondylosis Coronary artery disease GERD (gastroesophageal reflux disease) RUQ abdominal pain Pure hypercholesterolemia Lumbar spinal stenosis Benign essential hypertension Obesity (BMI 30-39.9) Osteoarthritis Hypertension, essential Surgical History Hx of colonoscopy (~2014) Hx of heart artery stent (~05/18/22) S/P total left hip arthroplasty (~01/21/21) S/P total right hip arthroplasty (~09/2020) Hx of lumbosacral spine surgery (~2018) History of partial hysterectomy History of knee surgery History of ear surgery History of tonsillectomy History of hip surgery History of section Family History Father CVD (cardiovascular disease) History of quadruple bypass Mother CVD (cardiovascular disease) Melanoma Brother No problems noted. Brother No problems noted. Son No problems noted. Son No problems noted. Paternal Aunt Breast cancer Social History Household Members: Family Caregiver staying overnight: No Housing: House Are you a primary farm or ranch animal caretaker to a significant other at home: No Do you presently have visiting nurse or other home services: No 75 years or older and lives alone: No Alcohol intake: current Alcohol intake frequency: holidays/special occasions only Patient Tobacco Use Status: Never used Tobacco e-Cigarette/Vaping Use: Never Used Second Hand Smoke Exposure: No service: No Current occupational status: employed Current occupational exposures/hazards: No Cognitive needs: No Hearing needs: No Vision needs: Yes Questionnaire Thrive Questionnaire Date Thrive assessed: 08/07/23 YARELI-7 AMB Questionnaire YARELI-7 Date YARELI - 7 assessed: 08/07/23 Source: Developed by Drs. Hernando Lilly, Macy Sousa, Stevie Sloan and colleagues, with an educational joseline from [employer]. Review of Systems Const Denies chills, Denies fatigue, Denies fever(s) and Denies headache(s) ENT Denies dysphagia, Denies dizziness, Denies otalgia, Denies headache(s), Reports neck pain, Denies odynophagia and Denies sore throat Card Denies chest pain, Denies palpitations and Denies dyspnea Resp Denies cough and Denies dyspnea GI Denies abdominal pain, Denies constipation, Denies dysphagia, Denies heartburn, Denies diarrhea, Denies nausea, Denies odynophagia and Denies vomiting Denies difficulty voiding, Denies nocturia, Denies dysuria and Denies urinary urgency Musc Reports back pain (on and off), Denies arthralgias, Denies joint swelling, Reports neck pain and Reports numbness (of the left thumb) Skin/Breast Denies rash Neuro Denies dizziness, Denies headache(s) and Reports numbness (of the left thumb) Endo Denies fatigue and Denies palpitations Live/Lymph Details: (+) swelling of the left leg and foot, with (+) mild tenderness on palpation noted over the left calf muscles Physical exam (Primary Care) Vital Signs: Last Vital Signs Pulse 76 12/04/23 16:54 BP 128/80 12/04/23 16:54 Pulse Ox 96 12/04/23 16:54 Oxygen Delivery Method Room Air 12/04/23 16:54 BMI result Body Mass Index 37.2 Tobacco/Smoking Status: Tobacco use Status Tobacco use date assessed 08/07/23 12/04/23 16:58 Patient Tobacco Use Status Never used Tobacco 12/04/23 16:58 e-Cigarette/Vaping Use Never Used 12/04/23 16:58 Thrive Assessment: Date of Thrive Assessment Date Thrive assessed 08/07/23 12/04/23 16:58 Const General: no acute distress and alert HENMT Ears: TM's normal bilaterally and EAC's normal Throat: Yes posterior oropharynx normal and Yes tonsils normal (no TP congestion) Neck Neck: Yes no lymphadenopathy and Yes supple Thyroid: Thyroid normal Resp Auscultation: clear to auscultation bilaterally, no rales and no wheezes Cardio Rate: regular rate Rhythm: regular rhythm Heart sounds: no murmurs GI Palpation (GI): Soft to palpation and nontender Auscultation: normal bowel sounds General: Yes no CVA tenderness Back/Spine/Pelvis Back: no CVA tenderness Cervical Spine: Cervical spine tenderness Thoracic/Lumbar Spine: lumbar spinal tenderness (mild) Skin Rashes: no rashes Extrem General: No clubbing, No cyanosis and Yes edema (2+ edema of the left lower ext remity; (+) mild tenderness over the L calf ) Assessment and Plan Assessment & Plan (1) Coronary artery disease: Comment: S/P PCI with stenting (FABRIZIO) of the RCA on 05/18/2022 Code(s): I25.10 - Atherosclerotic heart disease of redding coronary artery without angina pectoris Qualifiers: Associated angina: with unspecified form of angina Coronary Disease- Associated Artery/Lesion type: redding artery [place] vs. transplanted heart: redding heart Qualified Code(s): I25.119 - Atherosclerotic heart disease of redding coronary artery with unspecified angina pectoris Plan: S/P PCI with stenting (FABRIZIO) of the RCA on 05/18/22; she completed cardiac rehab earlier last year Continue Aspirin 81 mg QD and Metoprolol 50 mg BID; Brilinta was discontinued after 1 year of Tx following her PCI Continue HCTZ 25 mg 1/2 tablet QD Follow up with cardiology (Dr. Leal) as scheduled (2) Pure hypercholesterolemia: Comment: Unable to tolerate statins in the past Code(s): E78.00 - Pure hypercholesterolemia, unspecified Plan: Her total cholesterol was at 157 mg/dl, serum triglycerides at 184 mg/dl, HDL cholesterol at 46 mg/dl and LDL cholesterol at 74 mg/dl as of 07/14/2023 Thinks that she had some follow up labs done more recently but as these were done at an outside facility, we do not have the results of these to review at this time Reinforced low cholesterol diet Continue Repatha 140 mg SQ every 2 weeks - she has been unable to tolerate Ezetimibe and multiple statins in the past (myalgia) Will have patient recheck labs and fasting lipids in 4 months for follow-up (3) Benign essential hypertension: Code(s): I10 - Essential (primary) hypertension Plan: Reinforced low sodium diet - goal is systolic BP of 120 mm or less Continue Metoprolol 50 mg BID and HCTZ 25 mg 1/2 tablet (12.5 mg) QD She is reminded to monitor her BP regularly (4) Pain and swelling of left lower extremity: Code(s): M79.605 - Pain in left leg; M79.89 - Other specified soft tissue disorders Plan: Will send patient for urgent venous doppler of the left lower extremity for further evaluation and to r/o DVT (5) Lymphocytosis: Code(s): D72.820 - Lymphocytosis (symptomatic) Plan: She has been referred to and seen by Dr. 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 Garcia once or twice a year to monitor for any progression of her condition (6) Elevated rheumatoid factor: Code(s): R76.8 - Other specified abnormal immunological findings in serum Plan: Her Rheumatoid factor was elevated but her CCP Ab was normal and her ESR and CRP levels were also low when previously checked Patient was reassured that she DOES NOT have any evidence of RA at the time and we will continue to monitor these regularly/yearly for any changes Will also consider referral to rheumatology for further evaluation if anything changes (7) Vitamin D deficiency: Code(s): E55.9 - Vitamin D deficiency, unspecified Plan: Continue Vitamin D3 2000 units QD (8) Osteoarthritis: Comment: S/P bilateral hip arthroplasty at [facility] in [place], [place] Code(s): M19.90 - Unspecified osteoarthritis, unspecified site Qualifiers: Osteoarthritis location: unspecified site Osteoarthritis type: primary Qualified Code(s): M19.91 - Primary osteoarthritis, unspecified site Plan: She was taken off Celecoxib 200 mg QD after her PCI; has been advised by cardiology to avoid all NSAIDs from now on She is now only taking OTC Tylenol PRN for pain (9) Lumbar spinal stenosis: Comment: S/P laminectomy at [facility] in [place], [place] in 2019 Code(s): M48.061 - Spinal stenosis, lumbar region without neurogenic claudication Qualifiers: Neurogenic claudication status: without neurogenic claudication Qualified Code(s): M48.061 - Spinal stenosis, lumbar region without neurogenic claudication Plan: Reinforced activity and weight-lifting restrictions (10) Cervical spondylosis: Code(s): M47.812 - Spondylosis without myelopathy or radiculopathy, cervical region Plan: Patient brought in a copy of her cervical spine x-rays done back in May 2023, which revealed (+) grade 1 retrolisthesis and degenrative spondylosis of the C5-C6 She was seen by orthopedics (Dr. Nixon Good) who recommended physical therapy and gentle cervical traction - she is currently doing these regularly Follow up with orthopedics as scheduled (11) Hyperuricemia: Code(s): E79.0 - Hyperuricemia without signs of inflammatory arthritis and tophaceous disease Plan: Patient remains asymptomatic Reinforced low purine diet - will continue to monitor her serum uric acid level regularly (12) GERD (gastroesophageal reflux disease): Code(s): K21.9 - Gastro-esophageal reflux disease without esophagitis Qualifiers: Esophagitis presence: without esophagitis Qualified Code(s): K21.9 - Gastro-esophageal reflux disease without esophagitis Plan: Dietary restrictions reinforced She was on Pantoprazole 40 mg QD previously but states that she has not had to take Rx for a while now as her symptoms have been well-controlled She is advised again that if her symptoms recur and persist despite Rx and dietary restrictions, will need referral to GI for further evaluation and management and possible EGD (13) Obesity (BMI 30-39.9): Code(s): E66.9 - Obesity, unspecified Plan: Reinforced diet/exercise as tolerated/lose weight Plan Follow up in 4 months Orders: Orders UA CC w/rflx Micro + Cult 4 Months R30.0 - Dysuria Vitamin D 25-OH Total 4 Months E55.9 - Vitamin D deficiency, unspecified Uric Acid 4 Months E79.0 - Hyperuricemia without signs of inflammatory arthritis and tophaceous disease venous duplex LE LT 12/10/23 M79.605 - Pain in left leg, M79.89 - Other specified soft tissue disorders Complete Blood Count Auto Diff 4 Months D64.9 - Anemia, unspecified Comprehensive Champion. Panel Fast 4 Months E78.00 - Pure hypercholesterolemia, unspecified Lipid Panel 4 Months E78.00 - Pure hypercholesterolemia, unspecified TSH reflex Free T4 4 Months E78.00 - Pure hypercholesterolemia, unspecified Medications: Refilled hydrochlorothiazide 12.5 mg (1/2 x 25 mg) PO DAILY 90 tabs 1RF Coding Level of Care Code Est Pt Level 4 (36027) Diagnoses Coronary artery disease involving redding coronary artery of redding heart with angina pectoris I25.119 Associated angina: with unspecified form of angina Coronary Disease-Associated Artery/Lesion type: redding artery [place] vs. transplanted heart: redding heart Pure hypercholesterolemia E78.00 Benign essential hypertension I10 Pain and swelling of left lower extremity M79.605; M79.89 Lymphocytosis D72.820 Elevated rheumatoid factor R76.8 Vitamin D deficiency E55.9 Primary osteoarthritis, unspecified site M19.91 Osteoarthritis location: unspecified site Osteoarthritis type: primary Spinal stenosis of lumbar region without neurogenic claudication M48.061 Neurogenic claudication status: without neurogenic claudication Cervical spondylosis M47.812 Hyperuricemia E79.0 Gastroesophageal reflux disease without esophagitis K21.9 Esophagitis presence: without esophagitis Obesity (BMI 30-39.9) E66.9
== END 2023-12-04 17:42 | disposition home or self-care (01) ==
PROVIDERS: PCP Internal Medicine; Visit Provider Internal Medicine
DX: I25.119 Atherosclerotic heart disease of native coronary artery with unspecified angina pectoris (principal); E78.00 Pure hypercholesterolemia, unspecified; I10 Essential (primary) hypertension; M79.605 Pain in left leg; M79.89 Other specified soft tissue disorders; D72.820 Lymphocytosis (symptomatic); R76.8 Other specified abnormal immunological findings in serum; E55.9 Vitamin D deficiency, unspecified; M19.91 Primary osteoarthritis, unspecified site; M48.061 Spinal stenosis, lumbar region without neurogenic claudication; M47.812 Spondylosis without myelopathy or radiculopathy, cervical region; E79.0 Hyperuricemia without signs of inflammatory arthritis and tophaceous disease; K21.9 Gastro-esophageal reflux disease without esophagitis; E66.9 Obesity, unspecified
CPT/HCPCS: 99214

== ENCOUNTER 2023-12-10 16:07 | Outpatient (REF) | payer OTHER, SELFPAY ==
--- NOTE | ~2023-12-10 | US_ITS ---
EXAMINATION: US VENOUS ULTRASOUND WITH DOPPLER LOWER EXTREMITY, LEFT CLINICAL INFORMATION: Pain COMPARISON: Ultrasound 02/23/2020 TECHNIQUE: Ultrasound of the deep veins is performed from the hip to the calf with compression sonography and color and pulse Doppler assessment. Spectral analysis with color-flow imaging is performed. FINDINGS: There is normal venous compression and respiratory variation and augmented flow. The visualized common femoral vein, superficial femoral vein, profunda femoral vein, popliteal vein, and the trifurcation region shows no evidence of deep venous thrombosis. There is no significant popliteal fossa cyst. . If the patient's symptoms persist, followup ultrasound in 5 days 7 days might be of value to exclude proximal propagation from a non-visualized calf vein. US/US venous duplex LE LT IMPRESSION: No DVT demonstrated in the left lower extremity.
== END 2023-12-10 16:08 | disposition home or self-care (01) ==
LOC: HO.US 16:07
PROVIDERS: Visit Provider Internal Medicine
DX: M79.605 Pain in left leg (principal); M79.89 Other specified soft tissue disorders
CPT/HCPCS: 93971

== ENCOUNTER 2024-04-04 07:39 | Outpatient (REF) | payer OTHER, SELFPAY ==
[2024-04-04 11:46] LABS: MANUAL DIFF FLAG NO
[2024-04-04 11:49] LABS: Appearance Urine Clear; Color Urine Yellow; Glucose Urine UA Negative (Negative); Leukocyte Esterase Urine Negative (Negative); Nitrite Urine Negative (Negative); PH 5.5 (5.0-9.0); Urine Blood Negative (Negative); Urine Ketones Negative (Negative); Urine Protein Negative (Neg-Trace)
[2024-04-04 12:08] LABS: Basophils Percent Auto 0.4 % (0-2); Eosinophils Absolute Auto 0.1 X10*3/uL (0.0-0.4); Eosinophils Percent Auto 1.4 % (0-4); Hematocrit 40.2 % (37.0-47.0); Hemoglobin 12.9 g/dl (12.0-16.0); Imm Gran Abs Auto 0.02 X10*3/uL (0.00-0.03); Imm Gran Pct Auto 0.3 % (0.0-0.4); Lymphocytes Absolute Auto 3.8 X10*3/uL (1.2-4.9); Lymphocytes Percent Auto 51.2 % (20-40); Mean Corpuscular HGB Conc 32.1 g/dl (31.0-35.0); Mean Corpuscular Hemoglobin 27.3 pg (27.0-33.0); Mean Platelet Volume 10.7 fL (9.4-12.3); Monocytes Absolute Auto 0.7 X10*3/uL (0.1-1.2); Monocytes Percent Auto 8.9 % (2-11); Neutrophils Absolute Auto 2.8 x10*3/uL (2.0-8.3); Neutrophils Percent Auto 37.8 % (45-73); Platelet Count 361 X10*3/uL (160-400); Red Blood Count 4.73 X10*6/uL (4.20-5.50); Red Cell Distribution Width 13.6 % (11.0-16.0); White Blood Count 7.4 X10*3/uL (4.8-10.8)
[2024-04-04 12:27] LABS: Alanine Aminotransferase 21 U/L (0-31); Albumin Level 4.3 g/dL (3.5-5.0); Alkaline Phosphatase 67 U/L (39-117); Anion Gap 12 (12-20); Aspartate Amino Transferase 22 U/L (5-31); Bilirubin Total 0.4 mg/dL (0.0-1.0); Blood Urea Nitrogen 14 mg/dL (9-16); Calcium 9.7 mg/dL (8.4-10.2); Carbon Dioxide 28 mmol/L (22-29); Chloride 104 mmol/L (96-108); Cholesterol 155 mg/dL (<200); Estimated Glomerular Filt Rate > 60; Glucose Fasting 97 mg/dL (60-99); HDL Cholesterol 43 mg/dL (>40); LDL Cholesterol Calculated 71 mg/dL (<100); Potassium 4.1 mmol/L (3.3-5.1); Sodium 140 mmol/L (135-145); Triglycerides 206 mg/dL (<150); Uric Acid 7.2 mg/dL (2.4-5.7)
[2024-04-04 12:46] LABS: TSH reflex Free T4 1.48 uIU/mL (0.32-4.0); Vitamin D 25-OH Total 65.2 ng/mL (>30)
== END 2024-04-04 07:40 | disposition home or self-care (01) ==
LOC: HO.WFDLDS 07:39
PROVIDERS: Visit Provider Internal Medicine
DX: E78.00 Pure hypercholesterolemia, unspecified (principal); R30.0 Dysuria; D72.820 Lymphocytosis (symptomatic); E55.9 Vitamin D deficiency, unspecified; E79.0 Hyperuricemia without signs of inflammatory arthritis and tophaceous disease
CPT/HCPCS: 36415; 80053; 80061; 81003; 82306; 84443; 84550; 85025

== ENCOUNTER 2024-04-08 16:50 | Outpatient (AMB) | payer OTHER, SELFPAY ==
--- NOTE | 2024-04-08 16:51 | MHC.PC.OV ---
Vital Signs 04/08/24 16:53 Height 5 ft 4 in Weight 211 lb 2 oz BMI 36.2 BP 112/68 Blood Pressure Location Lt brachial Position Sitting Pulse 78 Pulse Source Pulse Oximeter Pulse Oximetry (%) 98 Oxygen Delivery Method Room Air Intake Visit Reasons: annual exam Intake Note: Patient is here today for a physical. Custodian Athletic Equipment Required: No Group Home Worker: Not Required per policy Accompanied by: Self / Same As Patient Allergies adhesive tape Allergy (Intermediate, Verified 04/08/24 17:14) Skin Blisters erythromycin base [ERYTHROMYCIN BASE] Allergy (Intermediate, Verified 04/08/24 17:14) Nausea and Vomiting latex [LATEX] Allergy (Intermediate, Verified 04/08/24 17:14) Rash meperidine [From DEMEROL] Allergy (Intermediate, Verified 04/08/24 17:14) Palpitations statin Allergy (Intermediate, Uncoded 04/08/24 17:14) joint pains, lethargic Tobacco use date assessed: 04/08/24 Dental Screening Dental Screen Date: 08/07/23 HPI annual exam HPI Details Patient comes in today for her annual physical examination States that she currently feels okay Relates that she had a skin lesion removed recently by Dr. Heath from the right side of her nose that turned out to be a basal cell carcinoma lesion She was then referred to [facility] for further excision but they are booking appointments out into June 2024 Patient eventually decided that she prefers to have a plastic surgeon perform her operation as it is on the facial area so she ended up contacting a plastic surgeon, Dr. Juanpablo Horton in [place] and she is scheduled to be seen by him next Sunday04/15/2024 She also continues to experience recurrent neck pain with radiation of pain and numbness into her left arm/hand She was diagnosed with a C5 impingement syndrome and has been seeing orthopedics out in [place], [place] for this issue She is currently still going to physical therapy for her neck and is scheduled to undergo a cervical spine MRI in [place] next Sunday as well She denies any headaches or dizziness Denies any chest pains, no SOB No nausea/vomiting, no abdominal pain No change in bowel habits noted She denies any acute urinary symptoms Needs her HCTZ Rx refilled She had her follow up labs done a few days ago - to discuss her results She has her repeat colonoscopy scheduled for tomorrow with Dr. Nguyễn Her annual mammogram was last done at [facility] a year ago in April 2023 and she is scheduled for this year's annual mammogram next month (April 2024) She has her annual gynecology appointment scheduled in May 2024 [facility] Medical History Cervical spondylosis Coronary artery disease GERD (gastroesophageal reflux disease) RUQ abdominal pain Pure hypercholesterolemia Lumbar spinal stenosis Benign essential hypertension Obesity (BMI 30-39.9) Osteoarthritis Hypertension, essential Surgical History Hx of colonoscopy (~2014) Hx of heart artery stent (~05/18/22) S/P total left hip arthroplasty (~01/21/21) S/P total right hip arthroplasty (~09/2020) Hx of lumbosacral spine surgery (~2018) History of partial hysterectomy History of knee surgery History of ear surgery History of tonsillectomy History of hip surgery History of section Family History Father CVD (cardiovascular disease) History of quadruple bypass Mother CVD (cardiovascular disease) Melanoma Brother No problems noted. Brother No problems noted. Son No problems noted. Son No problems noted. Paternal Aunt Breast cancer Social History Household Members: Family Caregiver staying overnight: No Housing: House Are you a primary after school caregiver to a significant other at home: No Do you presently have visiting nurse or other home services: No 75 years or older and lives alone: No Alcohol intake: current Alcohol intake frequency: holidays/special occasions only Patient Tobacco Use Status: Never used Tobacco e-Cigarette/Vaping Use: Never Used Second Hand Smoke Exposure: No service: No Current occupational status: employed Current occupational exposures/hazards: No Cognitive needs: No Hearing needs: No Vision needs: Yes Questionnaire PHQ-9 Over the last 2 weeks, how often have you been bothered by any of the following problems? 1. Little interest or pleasure in doing things: not at all 2. Feeling down, depressed, or hopeless: not at all 3. Trouble falling or staying asleep, or sleeping too much: not at all 4. Feeling tired or having little energy: not at all 5. Poor appetite or overeating: not at all 6. Feeling bad about yourself - or that you are a failure or have let yourself or your family down: not at all 7. Trouble concentrating on things, such as reading the newspaper or watching television: not at all 8. Moving or speaking so slowly that other people could have noticed. Or the opposite - being so fidgety or restless that you have been moving around a lot more than usual: not at all 9. Thoughts that you would be better off or of hurting yourself in some way: not at all Total score: 0 Depression Screening Interpretation: Negative Depression Screening Done: Yes 97888 - PHQ-9 Billing: Yes Source: Developed by Drs. Hernando Lilly, Macy Sousa, Stevie Sloan and colleagues, with an educational joseline from [employer]. Thrive Questionnaire Date Thrive assessed: 04/08/24 I am a: Patient What is your living situation today?: I have a steady place to live Within the past 12 months, did the food you bought not last and you didn't have the money to get more?: Sometimes True Within the past 12 months, did you worry whether your food would run out before you got money to buy more?: Sometimes True Do you have trouble paying for medicines?: No Do you have trouble getting transportation to medical appointments?: No Do you have trouble paying your heating and electricity bill?: No Do you have trouble taking care of your child, family member or friend?: No Do you have trouble with day-to-day activities such as bathing, preparing meals, shopping, managing finances, etc.?: No Are you currently unemployed and looking for a job?: Yes Are you interested in more education?: No Please select the resources that you would like help with: None Currently or been in a relationship where the following occur: No concerns reported THRIVE Score: 2 AUDIT C Alcohol Use Questionnaire (AUDIT-C) 1. How often do you have a drink containing alcohol?: Monthly or less 2. How many drinks containing alcohol do you have on a typical day when you are drinking?: 1 or 2 3. How often do you have six or more drinks on one occasion?: Never Total Score: 1 Score Reviewed/Action Taken: Yes YARELI-7 AMB Questionnaire YARELI-7 Date YARELI - 7 assessed: 04/08/24 Feeling nervous, anxious, or on edge: 1 = Several days Not being able to stop or control worryin = Not at all Worrying too much about different things: 1 = Several days Trouble relaxin = Not at all Being so restless that it is hard to sit still: 0 = Not at all Becoming easily annoyed or irritable: 0 = Not at all Feeling afraid as if something awful might happen: 0 = Not at all Total YARELI-7 score (0-4 normal; 5-9 mild; 10-14 moderate; 15-21 severe): 2 Source: Developed by Drs. Hernando Lilly, Macy Sousa, Stevie Sloan and colleagues, with an educational joseline from [employer]. Review of Systems Const Denies chills, Denies fatigue, Denies fever(s) and Denies headache(s) Eyes Denies blurry vision, Denies change in vision, Denies irritation and Denies itchy eyes ENT Denies dysphagia, Denies dizziness, Denies otalgia, Denies headache(s), Reports neck pain, Denies odynophagia and Denies sore throat Card Denies chest pain, Denies palpitations and Denies dyspnea Resp Denies cough, Denies dyspnea and Denies wheezing GI Denies abdominal pain, Denies constipation, Denies dysphagia, Denies heartburn, Denies diarrhea, Denies nausea, Denies odynophagia and Denies vomiting Denies difficulty voiding, Denies nocturia, Denies dysuria and Denies urinary urgency Musc Reports back pain (on and off), Reports neck pain and Reports numbness (of the left thumb) Skin/Breast Denies rash Neuro Denies dizziness, Denies headache(s) and Reports numbness (of the left thumb) Psych Denies anxiety and Denies depression Endo Denies fatigue and Denies palpitations Live/Lymph Denies easy bruising Aller/Immun Denies itchy eyes and Denies wheezing Physical exam (Primary Care) Vital Signs: Last Vital Signs Pulse 78 04/08/24 16:53 BP 112/68 04/08/24 16:53 Pulse Ox 98 04/08/24 16:53 Oxygen Delivery Method Room Air 04/08/24 16:53 BMI result Body Mass Index 36.2 Tobacco/Smoking Status: Tobacco use Status Tobacco use date assessed 04/08/24 04/08/24 16:57 Patient Tobacco Use Status Never used Tobacco 04/08/24 16:57 e-Cigarette/Vaping Use Never Used 04/08/24 16:57 PHQ-9: PHQ-9 Score PHQ-9: Total score 0 04/08/24 22:01 Depression Screening Interpretation: Negative Thrive Assessment: Date of Thrive Assessment Date Thrive assessed 04/08/24 04/08/24 16:57 Currently or been in a relationship where the following occur: No concerns reported Const General: no acute distress and alert Orientation/consciousness: patient oriented x3 HENMT Head: Yes normocephalic and Yes atraumatic Ears: TM's normal bilaterally and EAC's normal General nose exam: No nasal discharge present Face and sinus: Yes normal facial exam and Yes sinuses nontender Teeth and gingiva: dentition normal Throat: Yes posterior oropharynx normal and Yes tonsils normal (no TP congestion) Eyes Eyelids: Yes eyelids normal Conjunctivae: conjunctivae normal Pupils: Equal, round and reactive pupils present EOM: EOMs intact bilaterally Neck Neck: Yes no lymphadenopathy and Yes supple Thyroid: Thyroid normal Resp Auscultation: clear to auscultation bilaterally, no rales and no wheezes Cardio Rate: regular rate Rhythm: regular rhythm Heart sounds: no murmurs GI Palpation (GI): Soft to palpation and nontender Auscultation: normal bowel sounds General: Yes no CVA tenderness Back/Spine/Pelvis Back: no CVA tenderness Cervical Spine: Cervical spine tenderness Thoracic/Lumbar Spine: lumbar spinal tenderness Skin Lesions: no lesions Rashes: no rashes Neuro General: patient oriented x3, moves all extremities, no focal motor deficits and CN's II-XI intact bilaterally Cranial nerves: Yes Equal, round and reactive pupils present Cognition (Neuro): normal cognition Gait exam (Neuro): Normal gait present Extrem General: Yes no clubbing, cyanosis or edema Results Reviewed Results Reviewed: Laboratory Tests 04/04/24 04/04/24 07:40 07:46 WBC 7.4 Hgb 12.9 Hct 40.2 Plt Count 361 Sodium 140 Potassium 4.1 Creatinine 0.83 Estimated GFR > 60 Fasting Glucose 97 Uric Acid 7.2 H Calcium 9.7 AST 22 ALT 21 Triglycerides 206 H Cholesterol 155 LDL Cholesterol, Calc 71 HDL Cholesterol 43 25-OH Vitamin D Total 65.2 TSH 1.48 Ur Specific [place] 1.020 Urine Protein Negative Urine Glucose (UA) Negative Urine Blood Negative Urine Nitrite Negative Ur Leukocyte Esterase Negative Assessment and Plan Assessment & Plan (1) Annual physical exam: Code(s): Z00.00 - Encounter for general adult medical examination without abnormal findings Plan: Results of her labs done a few days ago reviewed and discussed with patient She is scheduled for her repeat colonoscopy tomorrow with Dr. Nguyễn Her annual mammogram was last done at [facility] a year ago in April 2023 and she is scheduled for her repeat annual mammogram next month She has her annual gynecology appointment at [facility] scheduled in May 2024 (2) Coronary artery disease: Comment: S/P PCI with stenting (FABRIZIO) of the RCA on 05/18/2022 Code(s): I25.10 - Atherosclerotic heart disease of [place] coronary artery without angina pectoris Qualifiers: Associated angina: with unspecified form of angina Coronary Disease-Associated Artery/Lesion type: [place] artery [place] vs. transplanted heart: [place] heart Qualified Code(s): I25.119 - Atherosclerotic heart disease of [place] coronary artery with unspecified angina pectoris Plan: S/P PCI with stenting (FABRIZIO) of the RCA on 05/18/22; completed cardiac rehab earlier last year (2022) Continue Aspirin 81 mg QD and Metoprolol 50 mg BID; Brilinta was discontinued after 1 year of Tx Continue HCTZ 25 mg 1/2 tablet QD Follow up with cardiology (Dr. Debbie Leal) at [facility] as scheduled (3) Pure hypercholesterolemia: Comment: Unable to tolerate statins in the past Code(s): E78.00 - Pure hypercholesterolemia, unspecified Plan: Her cholesterol numbers remain under excellent control, with her LDL cholesterol currently at 71 mg/dl on her most recent labs from a few days ago Reinforced low cholesterol diet Continue Repatha 140 mg SQ every 2 weeks - she has not been able to tolerate Ezetimibe and multiple statins in the past due to myalgia Will have patient recheck her labs and fasting lipids in 4 months for follow-up (4) Benign essential hypertension: Code(s): I10 - Essential (primary) hypertension Plan: Reinforced low sodium diet - goal is systolic BP of 120 mm or less Continue Metoprolol 50 mg BID and HCTZ 25 mg 1/2 tablet (12.5 mg) QD She is reminded to continue monitoring her BP regularly (5) Lymphocytosis: Code(s): D72.820 - Lymphocytosis (symptomatic) Plan: She has been referred to and seen by Dr. 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 Garcia once or twice a year for continuing surveillance to monitor for any progression of her condition (6) Elevated rheumatoid factor: Code(s): R76.8 - Other specified abnormal immunological findings in serum Plan: Her Rheumatoid factor was elevated but her CCP Ab was normal and her ESR and CRP levels were also low when previously checked Patient was reassured that she DOES NOT have any evidence of RA at the time and we will continue to monitor these regularly/yearly for any changes Will also consider referral to rheumatology for further evaluation if anything changes (7) Vitamin D deficiency: Code(s): E55.9 - Vitamin D deficiency, unspecified Plan: Continue Vitamin D3 2000 units QD (8) Osteoarthritis: Comment: S/P bilateral hip arthroplasty at [facility] in [place], [place] Code(s): M19.90 - Unspecified osteoarthritis, unspecified site Qualifiers: Osteoarthritis location: unspecified site Osteoarthritis type: primary Qualified Code(s): M19.91 - Primary osteoarthritis, unspecified site Plan: She was taken off Celecoxib 200 mg QD after her PCI and has been advised by cardiology to avoid all NSAIDs completely as NSAIDs can raise her cardiac risks She is now just taking OTC Tylenol PRN for pain (9) Lumbar spinal stenosis: Comment: S/P laminectomy at [facility] in [place], [place] in 2019 Code(s): M48.061 - Spinal stenosis, lumbar region without neurogenic claudication Qualifiers: Neurogenic claudication status: without neurogenic claudication Qualified Code(s): M48.061 - Spinal stenosis, lumbar region without neurogenic claudication Plan: Reinforced activity and weight-lifting restrictions (10) Cervical spondylosis: Code(s): M47.812 - Spondylosis without myelopathy or radiculopathy, cervical region Plan: Her cervical spine x-rays done in May 2023 revealed (+) grade 1 retrolisthesis and degenerative spondylosis of the C5-C6, with C5 impingement She was seen by orthopedics (Dr. Nixon Good) in [place] who recommended physical therapy and gentle cervical traction, which patient is still doing She is scheduled to undergo a cervical spine MRI in [place] next 04/15/2024, for further evaluation Follow up with orthopedics as scheduled (11) Hyperuricemia: Code(s): E79.0 - Hyperuricemia without signs of inflammatory arthritis and tophaceous disease Plan: Patient's serum uric acid is still elevated but she remains asymptomatic with no acute joint flares Reinforced low purine diet Will continue to monitor her serum levels regularly (12) GERD (gastroesophageal reflux disease): Code(s): K21.9 - Gastro-esophageal reflux disease without esophagitis Qualifiers: Esophagitis presence: without esophagitis Qualified Code(s): K21.9 - Gastro-esophageal reflux disease without esophagitis Plan: Dietary restrictions reinforced She was on Pantoprazole 40 mg QD previously but states that she has not had to take Rx for a while now as her symptoms were well-controlled but as she reports experiencing recurrent heartburns again recently, will have her go back on Pantoprazole 40 mg QD at this time - Rx sent to pharmacy She is advised again that if her symptoms persist despite Rx and dietary restrictions, will need to consider referring her to GI for further evaluation and possible EGD (13) Obesity (BMI 30-39.9): Code(s): E66.9 - Obesity, unspecified Plan: Reinforced diet/exercise as tolerated/lose weight Plan Follow up in 4 months Orders: Orders Comprehensive [place]. Panel Fast 4 Months E78.00 - Pure hypercholesterolemia, unspecified Lipid Panel 4 Months E78.00 - Pure hypercholesterolemia, unspecified UA CC w/rflx Micro + Cult 4 Months R30.0 - Dysuria Rheumatoid Factor 4 Months M25.50 - Pain in unspecified joint, R76.8 - Other specified abnormal immunological findings in serum Cyclic Citrullinated Peptide 4 Months M25.50 - Pain in unspecified joint, R76.8 - Other specified abnormal immunological findings in serum Complete Blood Count Auto Diff 4 Months D64.9 - Anemia, unspecified TSH reflex Free T4 4 Months E78.00 - Pure hypercholesterolemia, unspecified Vitamin D 25-OH Total 4 Months E55.9 - Vitamin D deficiency, unspecified FAMILIA Reflex Titer and Pattern 4 Months M25.50 - Pain in unspecified joint, R76.8 - Other specified abnormal immunological findings in serum Uric Acid 4 Months E79.0 - Hyperuricemia without signs of inflammatory arthritis and tophaceous disease Medications: New pantoprazole 40 mg PO DAILY 90 days 90 tabs 1RF Changed From hydrochlorothiazide 12.5 mg (1/2 x 25 mg) PO DAILY 90 tabs 1RF To hydrochlorothiazide 12.5 mg (1/2 x 25 mg) PO DAILY 90 days 45 tabs 1RF Coding Level of Care Code Est Pt Prev Care 40-64y(81023) Diagnoses Annual physical exam Z00.00 Coronary artery disease involving [place] coronary artery of [place] heart with angina pectoris I25.119 Associated angina: with unspecified form of angina Coronary Disease-Associated Artery/Lesion type: [place] artery [place] vs. transplanted heart: [place] heart Pure hypercholesterolemia E78.00 Benign essential hypertension I10 Lymphocytosis D72.820 Elevated rheumatoid factor R76.8 Vitamin D deficiency E55.9 Primary osteoarthritis, unspecified site M19.91 Osteoarthritis location: unspecified site Osteoarthritis type: primary Spinal stenosis of lumbar region without neurogenic claudication M48.061 Neurogenic claudication status: without neurogenic claudication Cervical spondylosis M47.812 Hyperuricemia E79.0 Gastroesophageal reflux disease without esophagitis K21.9 Esophagitis presence: without esophagitis Obesity (BMI 30-39.9) E66.9
[2024-04-08 16:53] VITALS: BP 112/68; PULSE 78; O2SAT 98; BMI 36.2
== END 2024-04-08 17:33 | disposition home or self-care (01) ==
PROVIDERS: PCP Internal Medicine; Visit Provider Internal Medicine
DX: Z00.00 Encounter for general adult medical examination without abnormal findings (principal); I25.119 Atherosclerotic heart disease of native coronary artery with unspecified angina pectoris; E66.9 Obesity, unspecified; Z68.36 Body mass index [BMI] 36.0-36.9, adult; E78.00 Pure hypercholesterolemia, unspecified; I10 Essential (primary) hypertension; D72.820 Lymphocytosis (symptomatic); R76.8 Other specified abnormal immunological findings in serum; E55.9 Vitamin D deficiency, unspecified; M19.91 Primary osteoarthritis, unspecified site; M48.061 Spinal stenosis, lumbar region without neurogenic claudication; M47.812 Spondylosis without myelopathy or radiculopathy, cervical region

== ENCOUNTER → 2024-04-08 16:50 | Outpatient (BNVA) | payer OTHER, SELFPAY | PROVIDERS: PCP Internal Medicine; Visit Provider Internal Medicine | DX: Z00.00 Encounter for general adult medical examination without abnormal findings (principal); I25.119 Atherosclerotic heart disease of native coronary artery with unspecified angina pectoris; E78.00 Pure hypercholesterolemia, unspecified; I10 Essential (primary) hypertension; D72.820 Lymphocytosis (symptomatic); R76.8 Other specified abnormal immunological findings in serum; E55.9 Vitamin D deficiency, unspecified; M19.91 Primary osteoarthritis, unspecified site; M48.061 Spinal stenosis, lumbar region without neurogenic claudication; M47.812 Spondylosis without myelopathy or radiculopathy, cervical region; E79.0 Hyperuricemia without signs of inflammatory arthritis and tophaceous disease; K21.9 Gastro-esophageal reflux disease without esophagitis; E66.9 Obesity, unspecified; Z79.82 Long term (current) use of aspirin; Z79.899 Other long term (current) drug therapy | CPT/HCPCS: 96127 ==

== ENCOUNTER 2024-04-09 09:26 | Day surgery (SDC) | payer OTHER, SELFPAY ==
[2024-04-07 14:12] VITALS: BMI 34.9
[2024-04-07 15:53] VITALS: BMI 34.8
--- NOTE | 2024-04-08 08:44 | P.CONAN_ITS ---
Documented by User: Laurence Krause NP 04/08/24 08:49 HPI - Anesthesia Eval Consult details Narrative: 58yo F for Colonoscopy CAD s/p stent 2021. Optimized for colonosocpy per 03/2024 office visit note PMFSH Active Problems Active Problems: All Active Problems Pain and swelling of left lower extremity (Acute) Left ear pain (Acute) Paronychia of finger (Acute) Elevated rheumatoid factor (Acute) Lymphocytosis (Acute) Hyperuricemia (Acute) Arthralgia (Acute) Shortness of breath (Acute) Arthralgia (Acute) Abrasion, left lower leg, initial encounter (Acute) Vitamin D deficiency (Acute) Cervical spondylosis (Acute) Coronary artery disease (Acute) GERD (gastroesophageal reflux disease) (Acute) RUQ abdominal pain (Acute) Pure hypercholesterolemia (Acute) Lumbar spinal stenosis (Acute) Benign essential hypertension (Acute) Obesity (BMI 30-39.9) (Acute) Osteoarthritis (Acute) Hypertension, essential (Acute) Past Medical History Medical History Cervical spondylosis Coronary artery disease GERD (gastroesophageal reflux disease) RUQ abdominal pain Pure hypercholesterolemia Lumbar spinal stenosis Benign essential hypertension Obesity (BMI 30-39.9) Osteoarthritis Hypertension, essential Family History Family History Father CVD (cardiovascular disease) History of quadruple bypass Mother CVD (cardiovascular disease) Melanoma Brother No problems noted. Brother No problems noted. Son No problems noted. Son No problems noted. Paternal Aunt Breast cancer Surgical History Surgical History Hx of colonoscopy (~2014) Hx of heart artery stent (~05/18/22) S/P total left hip arthroplasty (~01/21/21) S/P total right hip arthroplasty (~09/2020) Hx of lumbosacral spine surgery (~2018) History of partial hysterectomy History of knee surgery History of ear surgery History of tonsillectomy History of hip surgery History of section Social History Social History Household Members: Family Housing: House Are you a primary transitional care manager to a significant other at home: No Do you presently have visiting nurse or other home services: No Alcohol intake: current Alcohol intake frequency: holidays/special occasions only Patient Tobacco Use Status: Never used Tobacco e-Cigarette/Vaping Use: Never Used Second Hand Smoke Exposure: No Use of substances other than those prescribed or required for medical reasons: No Have you been hit, kicked, punched, or otherwise hurt by someone within the past year? If so, by whom?: No Are you DNR?: No Advance Directives: No Advance Directives Information Provided: Yes Advance Directives on File: No Recently lost weight without trying: No Nutrition Risks: No Nutritional Risk Poor oral hygiene: No service: No Current occupational status: employed Current occupational exposures/hazards: No Cognitive needs: No Hearing needs: No Vision needs: Yes Meds Allergies Allergy/AdvReac Type Severity Reaction Status Date / Time adhesive tape Allergy Intermediate Skin Verified 04/08/24 17:14 Blisters erythromycin base Allergy Intermediate Nausea and Verified 04/08/24 17:14 [ERYTHROMYCIN BASE] Vomiting latex [LATEX] Allergy Intermediate Rash Verified 04/08/24 17:14 meperidine [From DEMEROL] Allergy Intermediate Palpitation Verified 04/08/24 17:14 s statin Allergy Intermediate joint Uncoded 04/08/24 17:14 pains, lethargic Home Medications ?Medication ?Instructions ?Recorded ?Confirmed ?Last Taken ?Type multivitamin (Daily Multi-Vitamin 1 tab PO DAILY 06/22/20 04/07/24 Unknown History tablet) aspirin 81 mg tablet,delayed 81 mg PO .11PM 05/30/22 04/07/24 Unknown History release (Adult Aspirin Regimen) evolocumab 140 mg/mL subcutaneous 140 mg subcut Q2W 08/30/22 04/07/24 Unknown History pen injector (Repatha SureClick) metoprolol tartrate 25 mg tablet 50 mg PO .11AM+11PM 08/30/22 04/07/24 Unknown History Exam Height,Weight and Vital Signs: Height 5 ft 5 in Weight 94.801 kg Narrative Narrative: Diagnostic ImpressionECGECG 12-Lead ? 16:40:39 Please click on pdf link to open report ? Signed By: Jackson ZHANG, Parviz ? ECG 12-Lead ? 16:40:39 Ventricular Rate: 72 BPM Atrial Rate: 72 BPM P-R Interval: 162 ms QRS Duration: 82 ms Q-T Interval: 392 ms QTC Calculation(Bazett): 429 ms P [place]: 63 degrees R [place]: 30 degrees T [place]: 20 degrees Normal sinus rhythm with sinus arrhythmia Possible Left atrial enlargement Borderline ECG When compared with ECG of 10-MAY-2023 19:59, No significant change was found Confirmed by PARVIZ PAZ MD ([id number]) on 11/08/2023 9:18:59 AM [place]: PARVIZ PAZ MD ? Signed By: Parviz Paz MD Stress Test NM Myocard Perf SPECT Multi ? 08:45:20 Summary No evidence of stress induced ischemia or prior myocardial infarction. Normal left ventricular size and function with no regional wall motion abnormalities. Signatures _ _ ------- ? Signed By: Parviz Paz MD EchoEchocardiogram - Complete ? 07:31:22 Summary There is mild mitral regurgitation. The right ventricle is normal in size and function. The left ventricular size is normal. Left ventricular wall thickness is normal. The LV systolic function is normal . The left ventricular ejection fraction is 60-70 %. There are no regional wall motion abnormalities. Normal diastolic function. The pulmonary artery systolic pressure estimation is within normal limits. Comparison Comparison is made to the study of May 12, 2022. There is no significant change. Signature ? Signed By: Pajouh MD, Parviz Assessment and Plan Assessment Anesthesia Assessment: Chart Reviewed Documented by User: Monisha Kulkarni MD 04/09/24 10:54 PMFSH Past Medical History Medical History Cervical spondylosis Coronary artery disease GERD (gastroesophageal reflux disease) RUQ abdominal pain Pure hypercholesterolemia Lumbar spinal stenosis Benign essential hypertension Obesity (BMI 30-39.9) Osteoarthritis Hypertension, essential Family History Family History Father CVD (cardiovascular disease) History of quadruple bypass Mother CVD (cardiovascular disease) Melanoma Brother No problems noted. Brother No problems noted. Son No problems noted. Son No problems noted. Paternal Aunt Breast cancer Surgical History Surgical History Hx of colonoscopy (~2014) Hx of heart artery stent (~05/18/22) S/P total left hip arthroplasty (~01/21/21) S/P total right hip arthroplasty (~09/2020) Hx of lumbosacral spine surgery (~2018) History of partial hysterectomy History of knee surgery History of ear surgery History of tonsillectomy History of hip surgery History of section History of Problems with Anesthesia: No Social History Social History Household Members: Family Housing: House Are you a primary transitional care manager to a significant other at home: No Do you presently have visiting nurse or other home services: No Alcohol intake: current Alcohol intake frequency: holidays/special occasions only Patient Tobacco Use Status: Never used Tobacco e-Cigarette/Vaping Use: Never Used Second Hand Smoke Exposure: No Use of substances other than those prescribed or required for medical reasons: No Have you been hit, kicked, punched, or otherwise hurt by someone within the past year? If so, by whom?: No Are you DNR?: No Advance Directives: No Advance Directives Information Provided: Yes Advance Directives on File: No Recently lost weight without trying: No Nutrition Risks: No Nutritional Risk Poor oral hygiene: No service: No Current occupational status: employed Current occupational exposures/hazards: No Cognitive needs: No Hearing needs: No Vision needs: Yes Meds Allergies Allergy/AdvReac Type Severity Reaction Status Date / Time adhesive tape Allergy Intermediate Skin Verified 04/08/24 17:14 Blisters erythromycin base Allergy Intermediate Nausea and Verified 04/08/24 17:14 [ERYTHROMYCIN BASE] Vomiting latex [LATEX] Allergy Intermediate Rash Verified 04/08/24 17:14 meperidine [From DEMEROL] Allergy Intermediate Palpitation Verified 04/08/24 17:14 s statin Allergy Intermediate joint Uncoded 04/08/24 17:14 pains, lethargic Home Medications ?Medication ?Instructions ?Recorded ?Confirmed ?Last Taken ?Type multivitamin (Daily Multi-Vitamin 1 tab PO DAILY 06/22/20 04/07/24 Unknown Histo ry tablet) aspirin 81 mg tablet,delayed 81 mg PO .11PM 05/30/22 04/07/24 Unknown History release (Adult Aspirin Regimen) evolocumab 140 mg/mL subcutaneous 140 mg subcut Q2W 08/30/22 04/07/24 Unknown History pen injector (Repatha SureClick) metoprolol tartrate 25 mg tablet 50 mg PO .11AM+11PM 08/30/22 04/07/24 Unknown History Exam Airway Mallampati Class: II TM Dist: >3cm Neck ROM: Full Loose/Missing/Broken Teeth: No Heart: RRR Lungs: CTA Assessment and Plan Assessment Anesthesia Assessment: Anesthesia Plan Discussed Final Anesthetic Review History of Problems with Anesthesia: No NPO: Yes ASA Class: III Final Preanesthetic Review: Meds/Allgs Chart Reviewed, Consent Obtained/Reviewed and Anes Risks/Benef Reviewed Patient Risk: Intermediate Procedure Risk: Low Anesthetic Plan Anesthetic Plan: MAC: Disposition: Standard PACU
[2024-04-09 09:50] VITALS: BMI 34.4
[2024-04-09 10:09] VITALS: BP 142/79; PULSE 676; RESP 18; TEMP 37.1; O2SAT 98
[2024-04-09] MEDS: Lactated Ringers 1,000 ML 100 ML IVCONT (10:21)
[2024-04-09 11:30] VITALS: BP 107/68; PULSE 76; RESP 16; TEMP 36.4; O2SAT 98
--- NOTE | 2024-04-09 11:33 | P.BOP_ITS ---
Brief Operative Note Date of Service: 04/09/24 Pre-op diagnosis: Screening Post-op diagnosis: other (Colon polyp) Procedure: Colonoscopy to the cecum and TI with bx/removal of polyp Surgeon: Hernando Nguyễn MD Anesthesia: MAC Was an Wafer Polisher used for this Procedure?: No Estimated blood loss (mL): 2.0 Pathology: other (A. Polyp at 20cm) Condition: stable Disposition: PACU
[2024-04-09 11:35] VITALS: BP 111/68; PULSE 72; RESP 14; O2SAT 98
[2024-04-09 11:40] VITALS: BP 120/60; PULSE 81; RESP 14; O2SAT 98
[2024-04-09 11:45] VITALS: BP 128/64; PULSE 79; RESP 16; O2SAT 98
[2024-04-09 11:50] VITALS: BP 125/81; PULSE 73; RESP 16; TEMP 36.2; O2SAT 97
--- NOTE | 2024-04-09 12:00 | OP_ITS ---
DATE OF SERVICE: 04/09/2024 SURGEON: Hernando Nguyễn MD INDICATIONS: The patient presents for evaluation of colorectal cancer screening. Full consent has been obtained from her for this, including risks of bleeding and perforation. PREOPERATIVE DIAGNOSIS: Colorectal cancer screening. POSTOPERATIVE DIAGNOSIS: PROCEDURE PERFORMED: Colonoscopy to the cecum and terminal ileum with biopsy and removal of polyp. ESTIMATED BLOOD LOSS: COMPLICATIONS: ANESTHESIA: Monitored anesthesia care. ASSISTANTS: SPECIMENS: POSTOPERATIVE DIAGNOSES: Colorectal cancer screening, small colon polyp, diverticulosis, and internal hemorrhoids. DESCRIPTION OF PROCEDURE: The patient was placed in the left lateral decubitus position. The digital rectal exam revealed no abnormalities. The Olympus video pediatric colonoscope was entered into the rectum and advanced easily to the cecum. Once in the cecum, I did identify normal-appearing cecal pouch with appendiceal orifice and a normal-appearing ileocecal valve. The terminal ileum was cannulated and appeared normal. The scope was withdrawn back in the colon. The entire cecum and ileocecal valve appeared normal. The scope was slowly withdrawn assessing all mucosal surfaces carefully. Preparation was excellent. The only polyp I visualized was a flat, approximately 3 mm probable hyperplastic polyp at 20 cm, which was biopsied and completely removed with a cold biopsy forceps. I did not visualize any other polyps, colitis, nor angiodysplasia. There was a mild amount of sigmoid diverticulosis. In the rectum, scope was retroflexed visualizing internal hemorrhoids, but no other pathology. The rectal mucosa appeared normal. The scope was straightened and withdrawn from the patient. She tolerated the procedure well and was returned to the recovery area in stable condition. IMPRESSION: 1. Small colon polyp. 2. Diverticulosis. 3. Internal hemorrhoids. PLAN: The results of the biopsy will be checked. If this is a hyperplastic polyp, I would recommend a followup colonoscopy in 10 years. If it happens to be a tubular adenoma, I would recommend a followup coloscopy in 5 years. She will otherwise see me on a p.r.n. basis. MD SEDRICK Harding/CORNELL / [phone]
== END 2024-04-09 12:20 | disposition home or self-care (01) ==
PROVIDERS: PCP Internal Medicine; Visit Provider Internal Medicine
PROC: 0DJD8ZZ Inspection of Lower Intestinal Tract, Via Natural or Artificial Opening Endoscopic (ICD-10-PCS; CPT 45378; principal; 2024-04-09 10:30)
DX: Z12.11 Encounter for screening for malignant neoplasm of colon (principal); K63.5 Polyp of colon; K57.30 Diverticulosis of large intestine without perforation or abscess without bleeding; K64.8 Other hemorrhoids; I10 Essential (primary) hypertension; E78.00 Pure hypercholesterolemia, unspecified; Z79.82 Long term (current) use of aspirin; Z79.899 Other long term (current) drug therapy
CPT/HCPCS: 45380; 88305; J2704

== ENCOUNTER 2024-11-06 07:44 | Outpatient (REF) | payer OTHER, SELFPAY ==
--- OUTSIDE RECORDS SUMMARY | 2024-11-06 07:47 | XMS_ITS ---
Author Organization [facility] Address [address] [place] [address] Care Team Providers Care Channel Cementer Name Role Phone Austin ZHANG, [place] Primary Care Provider Hernadno Lutz Unavailable [phone] Allergies Allergen (clinical drug ingredient) Drug/Non Drug Allergy documented on EMR Reaction Allergy Type Onset Date Status erythromycin Erythromycin Unknown Drug Allergy A ctive Latex Latex Unknown Allergy Active meperidine Demerol Unknown Drug Allergy Active REASON FOR VISIT Patient presents today for a colon screening Medications Medication SIG (Take, Route, Frequency, Duration) Notes Start Date End Date Status Repatha SureClick 140 MG/ML Subcutaneous for 28 Active Aspir-Low 81 MG 1 tablet Orally Once a day for 30 day(s) 01/23/2024 Active hydroCHLOROthiazide 25 MG TAKE 1/2 table t (12.5mg) BY MOUTH ONCE DAILY Oral for 90 Active Metoprolol Tartrate 25 MG TAKE 2 TABLETS BY MOUTH TWICE DAILY Oral for 30 Active Immunizations Vaccine Route Administration Date Status Comme nts Influenza Unknown 01/23/2024 Refused Social History Tobacco Use: Social History Observation Description Date Details (start date - stop date) Never Smoker NA - NA Tobacco Use/Smoking Question Answer Notes Patient is a nonsmoker Alcohol Screen Question Answer Notes Did you have a drink containing alcohol in the p ast year? No Points 0 Interpretation Negative Section Notes: Nonsmoker; no sig. alcohol Problems Problem Type SNOMED Code ICD Code Onset Dates Problem Status W/U Status Risk Notes Problem Screening for malignant neoplasm of colon (313778561) Encounter for screening for malignant neoplasm of colon (Z12.11) Active confirmed Problem Pre-procedure evaluation check (849093469) Encounter for other preprocedural examination (Z01.818) Active confirmed Vital Signs Temperature 98.6 degrees Fahrenheit 01/23/20 24 Blood pressure systolic 000 mm Hg 01/23/20 24 Blood pressure diastolic 00 mm Hg 024 Height 5 ft 5 in in 01/23/2024 Weight 210 lbs 01/23/2024 BMI 34.94 kg/m2 01/23/2024 Encounters Encounter Location Date Provider Diagnosis [facility] [address] [place] [address] 01/23/2024 Hernando Nguyễn Encounter for screen ing for malignant neoplasm of colon Z12.11 and Encounter for other preprocedural examination Z01.818 Assessments Encounter Date Diagnosis (ICD Code) Assessment Notes Treatment Notes Treatment Clinical Notes Section Notes 01/23/2024 Encounter for screening for malignant neoplasm of colon (ICD-10 - Z12.11) Do not take aspirin on the day of the colonoscopy Do not use any Hydrochlorothiazide the day before nor on the day of the colonoscopy Overall, Lorelei appears well. Given her age, good clinical appearance, and her last colonoscopy approaching the 10 year kannan, I did recommend a followup colonoscopy for further screening purposes. We did review the rationale for this in regard to colon cancer prevention. Full consent was obtained from her for this, including risks of bleeding and perforation. The procedure will be done monitored anesthesia care. She was given the below instructions regarding adjustment of her medications for the procedure. She did see her electronic equipment maint tech approximately 2 months ago and we shall obtain a Clearance note for the procedure. Lorelei was comfortable with this plan. Thank you again for allowing me to participate in Lorelei's care. I shall continue to keep you advised of her progress. 01/23/2024 Encounter for other preprocedural examination (ICD-10 - Z01.818) Overall, Lorelei appears well. Given her age, good clinical appearance, and her last colonoscopy approaching the 10 year kannan, I did recommend a followup colonoscopy for further screening purposes. We did review the rationale for this in regard to colon cancer prevention. Full consent was obtained from her for this, including risks of bleeding and perforation. The procedure will be done monitored anesthesia care. She was given the below instructions regarding adjustment of her medications for the procedure. She did see her electronic equipment maint tech approximately 2 months ago and we shall obtain a Clearance note for the procedure. Lorelei was comfortable with this plan. Thank you again for allowing me to participate in Lorelei's care. I shall continue to keep you advised of her progress. Plan Of Treatment Treatment Notes Assessment Notes Encounter for screening for malignant neoplasm of colon Do not take aspirin on the day of the colonoscopy Do not use any Hydrochlorothiazide the day before nor on the day of the colonoscopy Future Test Test Name Order Date COLONOSCOPY 01/23/2024 Next Appt Details Follow Up: prn, Reason: Progress Notes * LORELEI NIETODOB: 5 (58 yo F)Acc No.[id number]:01/23/2024 Progress Notes Patient:?LORELEI NIETO Provider:?Hernando Nguyễn MD :1965???Age:58 Y???Sex:Female D ate:01/23/2024 Address:[address] [place], [place] [id number] Pcp:Vinny Avila MD Subjective: * Chief Complaints: * ???Patient presents today fo r a colon screening * HPI: ???incontinence:? I saw Lorelei in the office today for evaluation of colorectal cancer screening. ?As you know, Lorelei is a 58-year-old female who presently feels well. She enjoys a good appetite, without any significant heartburn or dysphagia. Her bowel movements have been regular and without any signs of bleeding. She denies any abdominal pain, jaundice, nor unintentional weight loss. She denies any known family history of colon cancer. Her mother did pass away recently from cholangiocarcinoma and biliary obstruction. * ROS:?General/Constitutional:?Change in appetite?denies.?Chills?denies.?Fatigue?denies.?Ophthalmologic:?Comments?all negative.?ENT:?Comments?all negative.?Respiratory:?hemoptysis?denies.?Cough?denies.?Cardiovascular:?Chest pain?denies.?Orthopnea?denies.?Gastrointestinal:?Comments?See HPI for details.?Genitourinary:?Hematuria?denies.?Dysuria?denies.?Musculoskeletal:?Painful joints?denies.?Weakness?denies.?Skin:?Itching?denies.?Rash?denies.?Neurologic:?Headache?denies.?Seizures?denies.?Psychiatric:?Comments?all negative.? * Medical History:? * Surgical History:?Right knee 1984Bilateral hip replacements ack surgery C-sections Partial hysterectomy * Hospitalization/Major Diagno stic Procedure:?No Hospitalization History. * Family History:?Father: dece ased, diagnosed with Heart disease, HTN (hypertension).?Mother: .? No family history of colon cancer Mother from cholangiocarcinoma. * Social History:?Tobacco Use:?Tobacco Use/Smoking?Patient is a?nonsmoker.?Drugs/Alcohol:?Alcohol Screen?Did you have a drink containing alcohol in the past year??No,?Points?0,?Interpretation?Negative.?Miscellaneous:?Marital status: single. 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 ???Nonsmoker; no sig. alcohol. * Medications:?TakingMetoprolo l Tartrate 25 MG Tablet TAKE 2 TABLETS BY MOUTH TWICE DAILY Oral Repatha SureClick 140 MG/ML Solution Auto-injector Subcutaneous hydroCHLOROthiazide 25 MG Tablet TAKE 1/2 tablet (12.5mg) BY MOUTH ONCE DAILY Oral Aspir-Low 81 MG Tablet Delayed Release 1 tablet Orally Once a dayMedication List reviewed and reconciled with the patientTaking Metoprolol Tartrate 25 MG Tablet TAKE 2 TABLETS BY MOUTH TWICE DAILY Oral Taking Repatha SureClick 140 MG/ML Solution Auto-injector Subcutaneous Taking hydroCHLOROthiazide 25 MG Tablet TAKE 1/2 tablet (12.5mg) BY MOUTH ONCE DAILY Oral Taking Aspir-Low 81 MG Tablet Delayed Release 1 tablet Orally Once a dayMedication List reviewed and reconciled with the patient * Allergies:?LatexDemerolEryth romycinyes[Allergies Verified] Objective: * Vitals:?Wt: 210 lbs, Ht: 5 f t 5 in, BMI:34.94 Index, BP: 000/00 mm Hg, Temp: 98.6. * Examination: ???General Examination: ?GENERAL APPEARANCE:?pleasant, well nourished, well developed, in no acute distress.?EYES:?sclera non-icteric.?ORAL CAVITY:?mucosa moist.?NECK/THYROID:?no cervical lymphadenopathy, neck supple.?SKIN:?nonjaundiced, no spider angiomata.?HEART:?S1, S2 normal.?LUNGS:?clear to auscultation bilaterally.?ABDOMEN:?normal bowel sounds, no guarding or rigidity, no guarding or rigidity, no masses palpable, soft, nontender, nondistended.?EXTREMITIES:?no edema.?NEUROLOGIC:?alert and oriented.? Assessment: * Assessment: 1.?Encounter for other prepr ocedural examination - Z01.818 (Primary)?2.?Encounter for screening for malignant neoplasm of colon - Z12.11? Overall, Lorelei appears wel l. Given her age, good clinical appearance, and her last colonoscopy approaching the 10 year kannan, I did recommend a followup colonoscopy for further screening purposes. We did review the rationale for this in regard to colon cancer prevention. Full consent was obtained from her for this, including risks of bleeding and perforation. The procedure will be done monitored anesthesia care. She was given the below instructions regarding adjustment of her medications for the procedure. She did see her electronic equipment maint tech approximately 2 months ago and we shall obtain a Clearance note for the procedure. Lorelei was comfortable with this plan. Thank you again for allowing me to participate in Lorelei's care. I shall continue to keep you advised of her progress. Plan: * Treatment: Notes: Do not take aspirin on the day of the colonoscopy Do not use any Hydrochlorothiazide the day before nor on the day of the colonoscopy?? * Immunizations:? Influenza (Not administered - Refused: Patient decision) * Procedure Codes:?3017F COLOR ECTAL CA SCREEN DOC [id number] TOBACCO NON-[id number] BP SCR NOT PRFRM REC REASON NOS * Follow Up:?prn * * Sign off status: Completed true * Provider:?Hernando Nguyễn MD Date:? 024 Generated for Printi tricia/Megha/eTransmitting on:?11/06/2024 07:46 AM EDT History and Physical Notes * HPI (History of Present Illness) Category Sub-Category Detail Notes Category Not es incontinence I saw Lorelei in the office today for evaluation of colorectal cancer screening. As you know, Lorelei is a 58-year-old female who presently feels well. She enjoys a good appetite, without any significant heartburn or dysphagia. Her bowel movements have been regular and without any signs of bleeding. She denies any abdominal pain, jaundice, nor unintentional weight loss. She denies any known family history of colon cancer. Her mother did pass away recently from cholangiocarcinoma and biliary obstruction. Examination Category Sub-Category Detail Notes Category Not es General Examination GENERAL APPEARANCE: pleasant , well nourished, well developed, in no acute distress HEAD: EYES: sclera non-icteric EARS: NOSE: THROAT: NECK/THYROID: no cervical lymphade nopathy, neck supple HEART: S1, S2 normal CHEST: LUNGS: clear to auscultatio n bilaterally ABDOMEN: normal bowel sounds, no guarding or rigidity, no guarding or rigidity, no masses palpable, soft, nontender, nondistended NEUROLOGIC: alert and oriented SKIN: nonjaundiced, no spi beny angiomata EXTREMITIES: no edema PERIPHERAL PULSES: BACK: BREASTS: MUSCULOSKELETAL: MALE GENITOURINARY: LYMPH NODES: RECTAL EXAM: FEMALE GENITOURINARY: ORAL CAVITY: mucosa moist
--- OUTSIDE RECORDS SUMMARY | 2024-11-06 07:47 | XMS_ITS | Patient Health Record ---
Author Organization [facility] Address [address] [place] [address] Care Team Providers Care Passenger Tire Inspector Name Role Phone Austin ZHANG, Vevay Primary Care Provider Hernando Lutz [facility] [phone] Allergies Allergen (clinical drug ingredient) Drug/Non Drug Allergy documented on EMR Reaction Allergy Type Onset Date Status erythromycin Erythromycin Unknown Drug Allergy A ctive Latex Latex Unknown Allergy Active meperidine Demerol Unknown Drug Allergy Active Results Component Value Reference Range Notes Pathology (Not yet reviewed by provider) Interpretation: Performing Lab:[facility], [address] [place] [id number] Notes/Report: Name: Lorelei Nieto Age/Sex: 58/F : 1965 Unit#: [id number] Attend Dr: Hernando Nguyễn MD Re04/09/24 Status : [facility] Location: [facility] Disch: SPEC : [id number] REC STATUS: SANDRA CHRISTIANSON NUM: [id number] DIETER: 04/09/24-[address] [facility] [address]: Hernando Nguyễn MD ENTERED: 04/09/24-12 16 SP TYPE: Surgical OTHR DR: Vinny Avila MD ORDERED: HE Stain/3, Gross Micro L4 Diagnosis Colon, at 20 cm, ankush yp: Hyperplastic polyp. Clinical History Pre-Op Dx: Screening Post-Op Dx: Polyp, diverticulosis, hemorrhoids Microscopic Description Microscopic sections reviewed. Material Received Polyp at 20 cm Gross Description Received in formalin labeled ?polyp at 20? is a fragment of chester-white soft tissue measuring 0.3 cm in greatest d imension which is entirely submitted for microscopic examination, 1 piece in cassette [facility] Copies To: Vinny Avila MD [facility] Primary Care,[place] [address] [place], [place] [id number] Hernando Nguyễn MD [facility] [address] [place] [address] Signed (si gnature on file) Yamileth Friend 04/10/24 1144 END OF REPORT Reason For Referral No Information Medications Medication SIG (Take, Route, Frequency, Duration) Notes Start Date End Date Status Kane SureClick 140 MG/ML Subcutaneous for 28 Active [...] Problem Screening for malignant neoplasm of colon (795928425) Encounter for screening for malignant neoplasm of colon (Z12.11) Active confirmed Problem Pre-procedure evaluation check (004156574) Encounter for other preprocedural examination (Z01.818) Active confirmed Problem Diverticular disease of colon (909822816) Diverticulosis of large intestine without perforation or abscess without bleeding (K57.30) Active confirmed Vital Signs Temperature 98.6 degrees Fahrenheit 01/23/2024 Blood pressure diastolic 00 mm Hg 01/23/2024 Height 5 ft 5 in in 01/23/2024 Blood pressure systolic 000 mm Hg 01/23/2024 Weight 210 lbs 01/23/2024 BMI 34.94 kg/m2 01/23/2024 Encounters Encounter Location Date Provider Diagnosis [facility] [place] [address], [place] [id number] 04/09/2024 Hernando Nguyễn Colon cancer screeni ng Z12.11 ; Colon polyps K63.5 ; Diverticulosis of large intestine without perforation or abscess without bleeding K57.30 and Other hemorrhoids K64.8 [facility] [address] [place] [address] 01/23/2024 Hernando Nguyễn Encounter for screen ing for malignant neoplasm of colon Z12.11 and Encounter for other preprocedural examination Z01.818 [facility] [address] [place] [address] 03/31/2024 Hernando Nguyễn Assessments Encounter Date Diagnosis (ICD Code) Assessment Notes Treatment Notes Treatment Clinical Notes Section Notes 04/09/2024 Colon cancer screening (ICD-10 - Z12.11) 04/09/2024 Colon polyps (ICD-10 - K63.5) 01/23/2024 Encounter for screening for malignant neoplasm [...] for the procedure. She did see her insurance job titles approximately 2 months ago and we shall [...] for the procedure. She did see her insurance job titles approximately 2 months ago and we shall obtain a Clearance note for the procedure. Lorelei was comfortable with this plan. Thank you again for allowing me to participate in Lorelei's care. I shall continue to keep you advised of her progress. 04/09/2024 Diverticulosis of large intestine without perforation or abscess without bleeding (ICD-10 - K57.30) 04/09/2024 Other hemorrhoids (ICD-10 - K64.8) Plan Of Treatment Pending Test Test Name Order Date Pathology 04/09/2024 Future Test Test Name Order Date COLONOSCOPY 01/23/2024 Insurance Providers Payer Name Payer Address Payer Phone Subscriber Number Group Number Insured Name Patient Relationship to Insured Coverage Start Date Coverage End Date [facility] Insurance (X5 Group) [address] [place] [address] [id number] LUCEROJalilLORELEI Self - patient is the insured Medical (General) History Medical History History ICD Code HTN Hyperlipdiemia Negative screenng colonoscopy age 49 at [place] with Dr. 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 Leal-at [facility] Surgical History Surgery Date(Month/Year) Right knee 1984 Bilateral hip replacements 2020 Back surgery 2019 2 C-sections Partial hysterectomy
--- OUTSIDE RECORDS SUMMARY | 2024-11-06 07:47 | XMS_ITS ---
Author Organization [facility] Address [address] [place] [address] Care Team Providers Care Outboard Motors Experimental Mechanic Name Role Phone Austin ZHANG, Lapaz Primary Care Provider Unava ilHernando Camarillo Unavailable [phone] REASON FOR VISIT screening Problems Problem Type SNOMED Code ICD Code Onset Dates Problem Status W/U Status Risk Notes Problem Diverticular disease of colon (240475112) Diverticulosis of large intestine without perforation or abscess without bleeding (K57.30) Active confirmed Encounters Encounter Location Date Provider Diagnosis [facility] [place] [address], [place] [id number] 04/09/2024 Hernando Nguyễn Colon cancer scree justice [...] * BILLY NIETODOB: 5 (59 yo F)Acc No.[id number]:04/09/2024 COLON WITH MAC Patient:?BILLY NIETO Provider:?Hernando Nguyễn MD :1965???Age:58 Y???Sex:Female D ate:04/09/2024 Address[address] [facility], [facility] Pcp:Vinny Avila MD Subjective: * Chief Complaints: * ???1. Screening. * Medical History:? Objective: * Vitals:? Assessment: * Assessment: 1.?Colon cancer screening - Z12.11 (Primary)???2.?Colon polyps - K63.5???3.?Diverticulosis of large intestine without perforation or abscess without bleeding - K57.30???4.?Other hemorrhoids - K64.8??? Plan: * Treatment: * Procedure Codes:?50033 COLON OSCOPY AND BIOPSY, Modifiers: 33 * * The named appointment provid er may or may not be the originator of this progress note, and it is not deemed complete until electronically signed by the appointment provider. Sign off status: Pending * Provider:?Hernando Nguyễn MD Date:? 024 Generated for Ramona clarke/Megha/eTransmitting on:?11/06/2024 07:46 AM EDT
--- OUTSIDE RECORDS SUMMARY | 2024-11-06 07:47 | XMS_ITS | Encounter Summary ---
Author Organization [facility] Address [address] [place] [address] Care Team Providers Care House Mover Helper Name Role Phone Vinny Avila MD Primary Care Provider [phone] Reason for Visit * Reason Comments Physical Therapy Encounter Details Date Type Department Care Team ([facility] st Contact Info) Description 02/18/2024 Telephone [facility] Orthopedic Surgery [address] [address] Nixon Good MD [address] [place] [address] Physical Therapy Social History Tobacco Use Types Packs/Day Years Used Date Smoking Tobacco: Never Smokeless Tobacco: Never Intimate Partner Violence Answer Date R ecorded Fear of Current or Ex-Partner Not on file Emotionally Abused Not on file 03/15/2023 Physically Abused Not on file 03/15/2023 Sexually Abused Not on file 03/15/2023 Feel Safe at Home Not on file 03/15/2023 Comments No Sex and Gender Information Value Date Recorded Sex Assigned at Not on file Legal Sex Female 9:14 AM EDT Gender Identity Not on file Sexual Orientation Not on file documented as of this encounter Miscellaneous Notes * Telephone Encounter - Gary Ceja LVN LPN - 02/18/2024 1:07 PM EDT Updated PT order faxed * Telephone Encounter - Jes Ann - 02/18/2024 9:17 AM EDT Patient requesting a physical therapy order is faxed to [phone]. documented in this encounter Plan of Treatment Not on file documented as of this encounter Visit Diagnoses Not on filedocumented in this encounter Care Teams House Mover Helper Relationship Specialty Start Date End Date Vinny Avila MD [address] [place] [address] PCP - General Internal Medicine 06/05/23 documented as of this encounter
--- OUTSIDE RECORDS SUMMARY | 2024-11-06 07:47 | XMS_ITS ---
Author Organization [facility] Address [address] [place] [address] Care Team Providers Care Transportation Engineer Name Role Phone Austin ZHANG, Kouts Primary Care Provider Unava ilable Hernando Nguyễn Unavailable [phone] REASON FOR VISIT cardiac clearance Encounters Encounter Location Date Provider Diagnosis [facility] [address] [place] [address] 03/31/2024 Hernando Nguyễn Plan Of Treatment No Information Progress Notes * KENNETH NIETOLEONCIODOB: 5 (58 yo F)Acc No.[id number]:03/31/2024 Patient:?BILLY NIETO :1965???Age:58 Y???Sex:Female Address:[address] [place], [address] * true * Date:? Generated for Montyi tricia/Megha/eTransmitting on:?11/06/2024 07:46 AM EDT
--- OUTSIDE RECORDS SUMMARY | 2024-11-06 07:47 | XMS_ITS | Continuity of Care Document ---
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 Magnetic Resonance Imaging [address] [place] [id number] Radiculitis; Chronic neck pain; Numbness and tingling in left hand 03/21/2024 Orders Only [facility] Orthopedic Surgery Suite [facility] [address] [facility] [address] [place] [phone] Nixon Good MD 03/20/2024 Telephone [facility] Orthopedic Surgery [address] [facility] [address] [place] [phone] Nixon Good MD Imaging Study; Referrals 02/18/2024 Orders Only [facility] Orthopedic Surgery [address] [phone] Nixon Good MD 02/18/2024 Telephone [facility] Orthopedic Surgery [address] [facility] [address] [place] [address] Nixon Good MD Physical Therapy 09/10/2023 3:30 PM EST Minor Procedure/Test [facility] Neurology [address] [facility] [address] [place] [address] Kika Ferguson MD Left arm pain (Primary Dx); Numbness and tingling of left thumb 06/05/2023 11:00 AM EST Radiology [facility] Xray [address] [facility] [address] [place] [address] Cervical spine pain 06/05/2023 11:40 AM EST Consult (Initial) [facility] Orthopedic Surgery [address] [facility] [address] [place] [address] Nixon Good MD Radiculitis (Primary Dx); Chronic neck pain; Numbness and tingling in left hand 06/04/2023 Orders Only [facility] Orthopedic Surgery [address] [facility] [address] [place] [phone] Nixon Good MD 06/30/2020 Travel 06/30/2020 10:15 PM EST Radiology [facility]. Magnetic Resonance Imaging [address] [place] [address] Right hip pain 06/23/2020 Travel 11/04/2019 8:00 AM EDT Office Visit [facility] Orthopedic Surgery [address] [facility] [address] [place] [address] Nixon Good MD Low back pain of over 3 months duration (Primary Dx); Shoulder pain, unspecified chronicity, unspecified laterality 04/21/2019 7:35 AM EDT Radiology [facility] Xray [address] [facility] [address] [place] [address] Low back pain of over 3 months duration 04/21/2019 8:00 AM EDT Office Visit [facility] Orthopedic Surgery [address] [facility] [address] [place] [address] Nixon Good MD Low back pain of over 3 months duration (Primary Dx); Facet arthritis of lumbar region 03/21/2019 Telephone [facility] Orthopedic Surgery [address] [facility] [address] [place] [address] Nixon Good MD Letter/form Request 02/24/2019 9:50 AM EDT Radiology [facility] Xray [address] [facility] [address] [place] [address] Low back pain, unspecified back pain laterality, unspecified chronicity, with sciatica presence unspecified 02/24/2019 9:30 AM EDT Office Visit [facility] Orthopedic Surgery [address] [facility] [address] [place] [address] Nixno Good MD Low back pain of over 3 months duration (Primary Dx) 02/21/2019 Orders Only [facility] Orthopedic Surgery [address] [facility] [address] [place] [address] Nixon Good MD 02/12/2019 Telephone [facility] Orthopedic Surgery [address] [facility] [address] [place] [address] Nixon Good MD [employer] (rash) 02/11/2019 Orders Only [facility] Orthopedic Surgery [address] [facility] [address] [place] [address] Nixon Good MD Medications 02/06/2019 Minor Procedure/Test NON [facility] [address] [place] [address] Nixon Good MD 02/06/2019 Hospital/Inpatie nt NON [facility] [address] [place] [address] Nixon Good MD 01/30/2019 Orders Only NON FC [facility] [address] [place] [address] Nixon Good MD 01/22/2019 Orders Only [facility] Card[facility] [address] [facility] [address] [place] [address] Santos Cast DO 01/22/2019 Orders Only [facility] Pre-Admission Testing 123 [facility] [address] [place] [address] Ann Christina NP 01/22/2019 8:30 AM EDT Office Visit [facility] Pre-Admission Testing [address] [place] [address] [address] [place] [address] Ann Christina NP Preop examination (Primary Dx); Low back pain of over 3 months duration; Lumbosacral stenosis with neurogenic claudication (HCC); Essential hypertension; Latex allergy; Low vitamin D level; Mixed hyperlipidemia 12/09/2018 8:10 AM EDT Office Visit [facility] Orthopedic Surgery [address] [place] [phone] Nixon Good MD Low back pain of over 3 months duration (Primary Dx); Facet arthritis of lumbar region; Foraminal stenosis of lumbar region; Lumbosacral stenosis with neurogenic claudication (HCC) 12/03/2018 7:45 AM EDT Radiology [facility]. Magnetic Resonance Imaging [address] [place] [address] Chronic bilateral low back pain with bilateral sciatica 11/12/2018 9:05 AM EDT Radiology [facility] Xray [address] [address] Low back pain of over 3 months duration; Facet arthritis of lumbar region; Foraminal stenosis of lumbar region; Chronic bilateral low back pain with bilateral sciatica 11/12/2018 8:20 AM EDT Consult (Initial) [facility] Orthopedic Surgery [address] [address] Nixon Good MD Low back pain of over 3 months duration (Primary Dx); Facet arthritis of lumbar region; Foraminal stenosis of lumbar region; Chronic bilateral low back pain with bilateral sciatica; Lumbosacral stenosis with neurogenic claudication (HCC) 10/23/2018 Consult (Initial) ORTHO SURG UNSPECIFIED Juan Francisco Butts 06/18/2018 Consult (Initial) ORTHO SURG UNSPECIFIED Juan Francisco Butts 01/26/2018 Minor Procedure/Test REHABILITATION UNSPEC [facility] 01/03/2018 Consult (Initial) ORTHO SURG UNSPECIFIED Usman Cannon PA 09/20/2017 Minor Procedure/Test JOANNE ZHANG UNSPEC Provider, Unknown Allergies Active Allergy Reactions Criticality Noted Date Comments Erythromycin Diarrhea/GI Upset 11/12/2018 Demerol Arrhythmia 11/12/2018 Latex Maculopapular Rash 11/12/2018 Statins 01/22/2019 Joint pain Aspartame Nausea/GI Upset Medium 04/21/2019 Skin Adhesives Maculopapular Rash 05/05/2024 Cortisone Other 04/15/2024 Medications Red Yeast Rice 600 MG Cap 2 tabs daily Active Methocarbamol 500 MG Tab 1 TABLETS 4 TIMES DAILY 30 Tab 1 9 Active Aspirin (ST LAVELL) 81 MG EC tablet Take 81 mg by mouth. 2 Active Clotrimazole-Be tamethasone (LOTRISONE) 1-0.05 % Cream apply to affected area 1-2 times a day until resolved, not to exceed 4 weeks. 3 Active DSS (COLACE) 100 MG capsule Take 100 mg by mouth 2 (two) times a day if needed. Active Evolocumab (Repatha SureClick) 140 MG/ML See Instructions, inject 140 mg Subcutaneous Infusion Every 14 days, # 2 mL, 11 Refills, Maintenance, 02/15/24 11:33:00 EDT, [facility], 165, cm, 11/14/23 8:48:00 EDT, Height, 98, kg, 05/10/23 21:30:00 EDT, Dry Weight 4 Active Econazole Nitrate 1 % cream Apply twice daily to the affected areas under the breast for 3-4 weeks or until resolved 4 Active Repatha SureClick 140 MG/ML 3 Active hydroCHLOROthia zide (HYDRODIURIL) 25 MG tablet TAKE 1/2 tablet (12.5mg) BY MOUTH ONCE DAILY 4 Active hydroCHLOROthia zide (HYDRODIURIL) 12.5 MG tablet 0 Active Metoprolol Tartrate (LOPRESSOR) 25 MG tablet 2 Active Metoprolol Tartrate (LOPRESSOR) 25 MG tablet Take 2 tablets by mouth. 4 Active oxyCODONE HCl (ROXICODONE) 5 MG immediate release tablet Take 5-10 mg by mouth every 4 (four) hours if needed. Active Pantoprazole Sodium (PROTONIX) 40 MG EC tablet Take 40 mg by mouth 1 (one) time each day. 4 Active Sennosides (SENOKOT) 8.6 MG tablet Take 1 tablet by mouth 1 (one) time if needed. Active Ticagrelor (BRILINTA) 90 MG tablet Take 90 mg by mouth. 3 Active Metoprolol Tartrate (LOPRESSOR) 25 MG tablet Take 2 tablets by mouth. 4 Active Active Problems No known active problems Immunizations Name Administration Dates Next Due COVID-19, mRNA (Pfizer Pre F all 2022) Monovalent, 30 mcg/0.3 ml 10/27/2020,10/06/2020 Tdap 12/17/2020 Social History Smoking Status as of 11/06/2024 Tobacco Use Types Packs/Day Years Used Date Smoking Tobacco: Never Assessed Intimate Partner Violence Answer Date R ecorded Fear of Current or Ex-Partner Not on file Emotionally Abused Not on file 03/15/2023 Physically Abused Not on file 03/15/2023 Sexually Abused Not on file 03/15/2023 Feel Safe at Home Not on file 03/15/2023 Sex and Gender Information Value Date Recorded Sex Assigned at Not on file Legal Sex Female 9:14 AM EDT Gender Identity Not on file Sexual Orientation Not on file Last Filed Vital Signs Vital Sign Reading Time Taken Comments Blood Pressure 128/70 01/22/2019 8:21 AM EDT Pulse 76 01/22/2019 8:21 AM EDT Temperature 36.9 ??C (98.5 ??F) 01/22/2019 8:21 AM ED T Respiratory Rate 14 01/22/2019 8:21 AM EDT Oxygen Saturation - - Inhaled Oxygen Concentration - - Weight 88.9 kg (196 lb) 06/30/2020 9:46 PM EST Height 162.6 cm (5' 4 ) 06/30/2020 9:46 PM EST Body Mass Index 33.64 06/30/2020 9:46 PM EST Plan of Treatment Not on file Procedures * Due to [place] state law, this organization might not be sharing negative HIV tests. Procedure Name Priority Date/Time Associated Diagnosis Comments MRI CERVICAL SPINE W/O CONTRAST Routine 04/15/2024 8:28 PM EDT Radiculitis Chronic neck pain Numbness and tingling in left hand NEEDLE ELECTROMYOGRAPHY (EMG) EACH EXTREM, W/WO PARASPINAL AREAS, COMPLETE, W/ PRIM PROC Routine 09/10/2023 4:51 PM EST Left arm pain Numbness and tingling of left thumb NERVE CONDUCTION STUDIES; 5-6 STUDIES Routine 09/10/2023 4:51 PM EST Left arm pain Numbness and tingling of left thumb ELECTROMYOGRAM/NERVE CONDUCTION STUDY (EMG/NCS) 09/10/2023 XRAY SPINE, CERVICAL; 3 VIEWS OR LESS Routine 06/05/2023 10:59 AM EST Cervical spine pain MRI HIP W/O CONTRAST - RIGHT Routine 06/30/2020 10:39 PM EST Right hip pain XRAY SPINE, LUMBOSACRAL; 2 OR 3 VIEWS Routine 04/21/2019 8:00 AM EDT Low back pain of over 3 months duration XRAY SPINE, LUMBOSACRAL; 2 OR 3 VIEWS Routine 02/24/2019 9:33 AM EDT Low back pain, unspecified back pain laterality, unspecified chronicity, with sciatica presence unspecified LUMBAR SPINE 3 VIEW MAX Routine 02/08/20 9:19 AM EDT BASIC METABOLIC PANEL Routine 02/07/2019 5:41 AM EDT CBC W/O DIFFERENTIAL Routine 02/07/2019 5:41 AM EDT OR IMAGING C-ARM Routine 02/06/2019 9:34 AM EDT UNSPECIFIED MAJOR PROCEDURE 02/06/2019 BLOOD TYPE AND ANTIBODY SCREEN Routine 01/30/2019 8:00 AM EDT MRSA CULTURE SCREEN, NASAL ONLY Routine 01/22/2019 11:38 AM EDT Preop examination Low back pain of over 3 months duration Lumbosacral stenosis with neurogenic claudication (HCC) Essential hypertension Latex allergy EKG-TO BE READ & BILLED BY ADULT OR PEDIATRIC CARDIOLOGY Routine 01/22/2019 10:41 AM EDT Low back pain of over 3 months duration Lumbosacral stenosis with neurogenic claudication (HCC) Essential hypertension Latex allergy Low vitamin D level Mixed hyperlipidemia VITAMIN D, 25-HYDROXY, TOTAL, IMMUNOASSAY Routine 01/22/2019 10:36 AM EDT Preop examination Low back pain of over 3 months duration Lumbosacral stenosis with neurogenic claudication (HCC) Essential hypertension Latex allergy Low vitamin D level CBC INCLUDES DIFFERENTIAL AND PLATELET COUNT Routine 01/22/2019 10:36 AM EDT Preop examination Low back pain of over 3 months duration Lumbosacral stenosis with neurogenic claudication (HCC) Essential hypertension Latex allergy BASIC METABOLIC PANEL WITH (GFR) Routine 01/22/2019 10:36 AM EDT Preop examination Low back pain of over 3 months duration Lumbosacral stenosis with neurogenic claudication (HCC) Essential hypertension Latex allergy MRI LUMBAR SPINE W/O CONTRAST Routine 12/03/2018 8:40 AM EDT Chronic bilateral low back pain with bilateral sciatica XRAY SPINE, LUMBOSACRAL; 2 OR 3 VIEWS Routine 11/12/2018 9:00 AM EDT Low back pain of over 3 months duration Facet arthritis of lumbar region Foraminal stenosis of lumbar region Chronic bilateral low back pain with bilateral sciatica UNLISTED MAGNETIC REASANCE PROCEDURE 01/26/2018 MRI SPINE 09/20/2017 MRI SPINE 09/20/2017 MRI SPINE 09/20/2017 Results * Due to [place] state law, this organization might not be sharing negative HIV tests. * MRI CERVICAL SPINE W/O CONTRAST (04/15/2024 8:28 PM EDT) Anatomical Region Laterality Modality Spine Magnetic Resonan ce Narrative 04/16/2024 1:45 PM EDT Patient History: Radiculitis CONTRAST: MR cervical spine without gadolinium Comparison: CR/HI - XRAY SPINE, CERVICAL; 3 VIEWS OR LESS FC - 06/05/2023 10:51 AM EST Findings: Reversal of the cervical lordosis. Vertebral heights are maintained. No pathologic marrow replacing lesions. Spinal cord signal intensity is uniform. C2-C3: Facet ankylosis on the right. ??Mild right foraminal stenosis. C3-C4: Facet hypertrophy greater on the left. There is central disc herniation which deforms the ventral spinal cord and moderately narrows the spinal canal. There is mild right and severe left foraminal stenosis. C4-C5: Broad-based central disc protrusion deforming the ventral thecal sac and mildly narrowing the spinal canal. Facet hypertrophy mainly on the left. There is moderate left and mild right foraminal stenosis. C5-C6: There is disc height loss with broad-based central disc protrusion deforming the spinal cord. There is mild spinal cord compression with [id number] spinal canal narrowing. ??No altered spinal cord signal intensity. There is severe right and moderate left foraminal stenosis. C6-C7: There is broad-based central disc protrusion deforming the ventral thecal sac with moderate narrowing of the spinal canal. There is mild bilateral foraminal stenosis. C7-T1: Shallow right central disc protrusion. No significant stenosis. Paraspinal soft tissues appear normal. IMPRESSION: Reversal of the cervical lordosis with multilevel disc and facet pathology. Multilevel disc protrusions accounting for multilevel spinal canal stenosis greatest at C5-C6 with compression of the spinal cord. No convincing altered spinal cord signal intensity. Multilevel foraminal stenoses are present and described above. ??These appear worst on the right at C5-C6 and on the left at C3-C4. Procedure Note Isai Shah MD - 04/16/2024 Patient History: Radiculitis CONTRAST: MR cervical spine without gadolinium Comparison: CR/HI - XRAY SPINE, CERVICAL; 3 VIEWS OR LESS - 0:51 AM EST Findings: Reversal of the cervical lordosis. Vertebral heights are maintained. No pathologic marrow replacing lesions. Spinal cord signal intensity is uniform. C2-C3: Facet ankylosis on the right. Mild right foraminal stenosis. C3-C4: Facet hypertrophy greater on the left. There is central discherniation which deforms the ventral spinal cord and moderately narrowsthe spinal canal. There is mild right and severe left foraminal stenosis. C4-C5: Broad-based central disc protrusion deforming the ventral thecalsac and mildly narrowing the spinal canal. Facet hypertrophy mainly on theleft. There is moderate left and mild right foraminal stenosis. C5-C6: There is disc height loss with broad-based central disc protrusiondeforming the spinal cord. There is mild spinal cord compression [id number] spinal canal narrowing. No altered spinal cord signalintensity. There is severe right and moderate left foraminal stenosis. C6-C7: There is broad-based central disc protrusion deforming the ventralthecal sac with moderate narrowing of the spinal canal. There is mildbilateral foraminal stenosis. C7-T1: Shallow right central disc protrusion. No significant stenosis. Paraspinal soft tissues appear normal. IMPRESSION: Reversal of the cervical lordosis with multilevel disc and facetpathology. Multilevel disc protrusions accounting for multilevel spinal canalstenosis greatest at C5-C6 with compression of the spinal cord. Noconvincing altered spinal cord signal intensity. Multilevel foraminal stenoses are present and described above. Theseappear worst on the right at C5-C6 and on the left at C3-C4. Nixon Good MD IMG MR NO CONTRAST ORDERABLES F inal Result * ELECTROMYOGRAM/NERVE CONDUCTION STUDY (EMG/NCS) FOR NEUROLOGY DEPT USE ONLY (09/10/2023) Kika Ferguson MD PROCEDURES Final Result * XRAY SPINE, CERVICAL; 3 VIEWS OR LESS FC (06/05/2023 10:59 AM EST) Anatomical Region Laterality Modality Spine Radiographic Muna ging 06/06/2023 10:1 7 AM EST Narrative 06/06/2023 10:17 AM EST CONTRAST: Exam: Cervical spine x-ray two views Comparison: None Findings: C7 is obscured by overlying soft tissue on the lateral view. Straightening of the normal cervical lordosis, 3 mm retrolisthesis C5-C6. Atlantoaxial relationship is obscured by skull base and facial bones. ?? Prevertebral and uncovertebral osteophytes C5 and C6 with disc height loss. Unremarkable facets. Prevertebral soft tissue is unremarkable. Impression: 1. Grade 1 retrolisthesis and degenerative spondylosis of the C5-6. Procedure Note Celina Rosado MD - 06/06/2023 CONTRAST: Exam: Cervical spine x-ray two views Comparison: None Findings: C7 is obscured by overlying soft tissue on the lateral view. Straightening of the normal cervical lordosis, 3 mm retrolisthesis C5-C6. Atlantoaxial relationship is obscured by skull base and facial bones. Prevertebral and uncovertebral osteophytes C5 and C6 with disc heightloss. Unremarkable facets. Prevertebral soft tissue is unremarkable. Impression: 1. Grade 1 retrolisthesis and degenerative spondylosis of the C5-6. Nixon Good MD IMG XRAY NO CONTRAST ORDERABLES Final Result * MRI HIP W/O CONTRAST - RIGHT FC (06/30/2020 10:39 PM EST) Anatomical Region Laterality Modality LOWER EXTREMITY Magnetic Resonan ce 07/01/2020 12:2 4 AM EST Narrative 07/01/2020 12:24 AM EST Exam: MRI of the right hip without contrast Comparison: Radiographs of the lumbar spine 11/12/2018 Clinical history: Right hip pain, history of labral tear/repair to right hip ?8 years. ??Cortisone injection 03/31/2020 Findings: Degenerative disc and endplate disease at L4-5 and L5-S1. No arthritis at the SI joints or symphysis pubis. ??No osseous lesions in the pelvis. No hip fracture dislocation or AVN. Right hip demonstrates large complex joint effusion with synovitis. ??There is complete loss of articular cartilage along the femoral head and the acetabulum. There is extensive bone marrow edema throughout the femoral head and the acetabulum. ??There is mild osteophytosis with small subcortical cyst at the superior acetabulum.. ??Acetabular labrum appears mildly thickened and amorphous with increased internal signal but without linear tear.. ??The arthritic changes are new when compared to the radiographs of 11/12/2018 Left hip demonstrates osteophytosis with joint space loss and subcortical edema.. ??There is a moderate left hip effusion which is also a complex demonstrating synovitis. ??There is uncovering of the left femoral head. ??The arthritic changes appear to have progressed when compared to the prior exam where it was moderate in degree. Impression: 1. ??Severe arthritis in the right hip with large complex joint effusion and synovitis. ??Complete loss of articular cartilage and extensive bone marrow edema. ??The findings have significantly progressed since the radiographs of 2019 and may represent severe degenerative osteoarthritis. ??Given the clinical history of recent cortisone injection, the possibility of septic joint is not excluded. ??Arthrocentesis can be performed for further evaluation. 2. ??Moderate arthritis in the left hip with moderate joint effusion and synovitis. ??The arthritis appears to have mildly progressed when compared to radiograph of 2019 Procedure Note Sugey Vyas MD - 07/01/2020 Exam: MRI of the right hip without contrast Comparison: Radiographs of the lumbar spine 11/12/2018 Clinical history: Right hip pain, history of labral tear/repair to righthip ?8 years. Cortisone injection 03/31/2020 Findings: Degenerative disc and endplate disease at L4-5 and L5-S1. No arthritis at the SI joints or symphysis pubis. No osseous lesions inthe pelvis. No hip fracture dislocation or AVN. Right hip demonstrates large complex joint effusion with synovitis. Thereis complete loss of articular cartilage along the femoral head and theacetabulum. There is extensive bone marrow edema throughout the femoral head and the acetabulum. There is mild osteophytosis with small subcortical cyst atthe superior acetabulum.. Acetabular labrum appears mildly thickened andamorphous with increased internal signal but without linear tear.. The arthriticchanges are new when compared to the radiographs of 11/12/2018 Left hip demonstrates osteophytosis with joint space loss and subcortical edema.. There is a moderate left hip effusion which is also a complex demonstrating synovitis. There is uncovering of the left femoral head.The arthritic changes appear to have progressed when compared to the priorexam where it was moderate in degree. Impression: 1. Severe arthritis in the right hip with large complex joint effusionand synovitis. Complete loss of articular cartilage and extensive bone marrow edema. The findings have significantly progressed since the radiographsof 2019 and may represent severe degenerative osteoarthritis. Given theclinical history of recent cortisone injection, the possibility of septic joint isnot excluded. Arthrocentesis can be performed for further evaluation. 2. Moderate arthritis in the left hip with moderate joint effusion and synovitis. The arthritis appears to have mildly progressed when comparedto radiograph of 2019 Juan Francisco Butts IMG MR NO CONTRAST ORDERABL ES Final Result * XRAY SPINE, LUMBOSACRAL; 2 OR 3 VIEWS FC (04/21/2019 8:00 AM EDT) Only the most recent of3 resultswithin the time period is included. Anatomical Region Laterality Modality Spine Radiographic Muna ging 04/22/2019 8:33 AM EDT Narrative 04/22/2019 8:33 AM EDT EXAM: ??LUMBAR SPINE SERIES: COMPARISON: CR ??- SPINE LUMBAR XRAY ??- 02/24/2019 09:29 AM EDT CR ??- LUMBAR SPINE 2 OR 3 VIEWS ??- 02/07/2019 10:12 AM EDT TECHNIQUE: ??Standing AP, lateral views. FINDINGS: Vertebral body heights and alignment unchanged, within normal limits. ?? No fracture or destructive lesion is identified. L2 and L3 laminectomies noted. ??Slight decrease in disc height and small circumferential osteophytes in the mid and lower lumbar spine, similar to previous study. Mild degenerative facet joint changes, particular L4-5 and L5-S1. No abnormality of the adjacent soft tissues is identified. IMPRESSION: ?? 1. ??Unchanged, unremarkable alignment. 2. ??Postop and degenerative changes again noted, no progression since previous study. Procedure Note Levi Maddox MD - 04/22/2019 EXAM: LUMBAR SPINE SERIES: COMPARISON: CR - SPINE LUMBAR XRAY - 02/24/2019 09:29 AM EDT CR - LUMBAR SPINE 2 OR 3 VIEWS - 02/07/2019 10:12 AM EDT TECHNIQUE: Standing AP, lateral views. FINDINGS: Vertebral body heights and alignment unchanged, within normal limits. No fracture or destructive lesion is identified. L2 and L3 laminectomies noted. Slight decrease in disc height and small circumferential osteophytes in the mid and lower lumbar spine, similar to previous study. Mild degenerative facet joint changes, particular L4-5 and L5-S1. No abnormality of the adjacent soft tissues is identified. IMPRESSION: 1. Unchanged, unremarkable alignment. 2. Postop and degenerative changes again noted, no progression sinceprevious study. us Nixon Good MD IMG XRAY NO CONTRAST ORDERABLES Final Result * LUMBAR SPINE 3 VIEW MAX (02/07/2019 9:19 AM EDT) RADIOLOGY REPORT [facility] Department of Radiology [address] [place] [address], [place], [address] Name: BILLY MICHELE : 63 Date of Service: 02/07/19 1018 Acct Number: [id number] Order Number: ??[id number] ?Location: [facility] Report Number: [id number] ?Service: REG [facility]/ Requesting Physician: Sean Goodwin Category: RADIOLOGY ??[facility] Exam: LUMBAR SPINE 2 OR 3 VIEWS ?? Signs/Symptoms: post op lumbar decompression Report Status: ---Signed--- EXAM: Radiographs of the lumbar spine,2 views. TECHNIQUE: PA and lateral views were obtained with weight. INDICATION: Postop lumbar decompression. COMPARISON: No pertinent prior exam available. FINDINGS: Exam is limited due to large amount of overlying bowel gas. There are 5 nonrib-bearing vertebrae. An L2-L3 laminectomy is noted. No other fracture or subluxation is seen. There is straightening of the normal lumbar lordosis. Vertebral heights and alignment are otherwise well maintained. There is mild to moderate degenerative changes with associated osteophytes throughout the lumbar spine, with disc space narrowing at L3-L4, L4-L5 and L5-S1. There is facet hypertrophy at L4-L5 and L5-S1. IMPRESSION: ?? 1. ??Status post laminectomy at L2 and L3. No fracture or subluxation. 2. ??Jpwk-[id number] e multilevel degenerative changes of lower lumbar spine. Date/Time of Dictation: 02/07/19 1143 Toll Line Inspector (if applicable): Lubna Harding Approved By Attending Radiologist: Catherine Romano 02/07/19 1143 [facility] Department of Radiology [address] [place] [address], [address] ? [phone] ? [facility] Anatomical Region Laterality Modality Other 02/07/2019 9:19 AM EDT Narrative 02/07/2019 11:43 AM EDT Reason for Study/History: Department of Radiology TEST(S) PROCESSED BY [facility] XRAY us Unknown Provider [facility] IMAGING-[facility] Final Resul t * (ABNORMAL) CBC W/O DIFFERENTIAL (02/07/2019 5:41 AM EDT) WHITE BLOOD COUNT 11.8(H) 3.9 - 11.0 x1000/uL [facility] RBC 3.89 3.70 - 5.10 mil/ul [facility] Hemoglobin 10.4(L) 11.5 - 15.0 g/dL [facility] HCT (HEMATOCRIT) 32.3(L) 34.0 - 44.0 % [facility] MCV 83 80 - 100 fL [facility] MCH 27 27 - 33 pg [facility] MCHC 32 31 - 36 g/dL [facility] RDW 14.1 11.4 - 14.4 % [facility] PLATELETS 294 150 - 450 x1000/uL [facility] 02/07/2019 5:41 AM EDT 02/07/2019 5:41 AM EDT us Nixon Good MD LABORATORY Final Result [facility] [address] [place] [address] * (ABNORMAL) BASIC METABOLIC PANEL (02/07/2019 5:41 AM EDT) Glucose 106(H) 65 - 99 mg/dL [facility] BUN 13 5 - 26 mg/dL [facility] CREATININE 0.77 0.5 - 1.5 mg/dL [facility] BUN/Creatinine Ratio 17 8 - 27 [facility] GLOM FILT RATE, EST 87.5 >59 mL/min [facility] IF -JORDON N 101.5 >59 mL/min [facility] SODIUM 141 134 - 144 mEq/L [facility] POTASSIUM 3.6 3.6 - 5.6 mEq/L [facility] CHLORIDE 106 96 - 109 mEq/L [facility] CARBON DIOXIDE 28 20 - 32 mEq/L [facility] ANION GAP 7.0(L) 8 - 15 [facility] CALCIUM 8.7 8.3 - 10.0 mg/dL [facility] 02/07/2019 5:41 AM EDT 02/07/2019 5:41 AM EDT us Nixon Good MD LABORATORY Final Result [facility] [address] [place] [address] * OR IMAGING C-ARM (02/06/2019 9:34 AM EDT) RADIOLOGY REPORT [facility] Department of Radiology [address] [place], [address] Name: BILLY MICHELE : 63 Date of Service: 02/06/19929 Acct Number: [id number] Order Number: ??[id number] ?Location: [facility] Report Number: [id number] ?Service: REG [facility]/ Requesting Physician: Nixon Good MD ([facility]) Category: RADIOLOGY OR CASES Exam: OR IMAGING C-ARM ?? Signs/Symptoms: L-SPINE Report Status: ---Signed--- Study: Fluoroscopy guided lumbar spine. Fluoroscopy time: Less than 0.1 minutes. Findings: Fluoroscopy guidance was provided for lumbar spine. Evaluation is limited due to portable C-arm technique. 4 images were submitted for evaluation which demonstrates surgical equipment posterior to the lower lumbar spine. Impression: Fluoroscopy guidance for lumbar spine procedure. Please refer to the full procedure report for details. Date/Time of Dictation: 02/06/19 1219 Toll Line Inspector (if applicable): Isaiah Echevarria Approved By Attending Radiologist: Catherine Romano 02/06/19 1219 [facility] Department of Radiology [address] [place] [address], [address] ? [phone] ? [facility] Anatomical Region Laterality Modality Other 02/06/2019 9:34 AM EDT Narrative 02/06/2019 12:19 PM EDT Reason for Study/History: Department of Radiology TEST(S) PROCESSED BY [facility] Nixon Good MD IMAGING-[facility] Final Result * UNSPECIFIED MAJOR PROCEDURE (02/06/2019) Narrative Procedure Note Nixon Good MD - 02/06/2019 10:48 AM EDT OPERATIVE REPORT DATE OF OPERATION: 02/06/2019 PREOPERATIVE DIAGNOSES: 1. Lumbar spinal stenosis. 2. Disk herniation. POSTOPERATIVE DIAGNOSES: 1. Lumbar spinal stenosis. 2. Disk herniation. PROCEDURE PERFORMED: 1. Bilateral laminectomy of L2 with partial medial facetectomies and foraminotomies. 2. Bilateral laminectomy of L3 with partial medial facetectomies and foraminotomies. 3. Left L2-L3 microdiskectomy. ATTENDING SURGEON: Dr. Nixon Good. EXECUTIVE OFFICER: Sean Goodwin PA-C. ANESTHESIA: GETA and 40 mL of 0.25% Marcaine with epinephrine. ESTIMATED BLOOD LOSS: 150 mL. COMPLICATIONS: None. FINDINGS: Small disk herniation, left L2-L3 and spinal stenosis L2-L3, L3-L4. CLINICAL HISTORY: Billy Michele is a 53-year-old female who comes in with predominant left leg symptoms and difficulty walking longdistances. She has exhausted a comprehensive nonoperative treatment program and would like to proceed with surgery. Risks and benefits were discussed. Risks included but were limited to infection, bleeding, dural tear,nerve or vessel injury, need for further surgery, development of instability, fracture, paralysis, nerve root injury, bowel or bladder issues, medical complications up to and including . She understood these risks and signed informed consent. DESCRIPTION OF PROCEDURE: The patient was seen in the holding area at [facility]. The STOP sheet was completed by me personally in the holding area, verifying: The patients name and date of ;that the History and Physical was updated within 24 hours of the procedureand documented, dated, timed and signed; that the consent was correct and complete, dated, timed and signed; that the procedure site and side was marked by me personally with my initials so that they were clearly visible when prepped and draped; that relevant radiology studies were available; that implants, special equipment, and instruments were confirmed as available. The patient was brought to Operating Room 12 at [facility]. Successful general endotracheal anesthesia was induced by my anesthesia colleagues. The patient was flipped prone on the Ronny table. All bony prominences were well-padded. We prepped and draped in usual sterile fashion using a pre-prep of alcohol, followed by a ChloraPrep prep and a DuraPrep prep. We completed our procedural pause, verifying: the correct patient name and date of ; procedure to be done; side/site/level marking consistent with consent and history andphysical; allergies were confirmed; correct patient position with site clearly visible after being prepped and draped with my initials on the patients skin; confirmation that the antibiotic had been administered and documented prior to incision; confirmation of blood products; confirmation that implants, special equipment and instruments were available; confirmation that DVT prophylaxis with venodyne boots was placed on the patient and turned on. Once everyone in the room agreed, we proceeded. A spinal needle was placed off the midline to help localize starting incision. Midline incision was then created after infiltrating with local anesthetic. We dissected down over the lamina, put a nerve hook beneath the presumed L3 lamina and took an x-ray confirming our appropriate level. We cleaned off the L2 lamina and L3 lamina. We cleaned off just the very bottom portion of L1 and the top of L4. Self-retaining retractors were placed. Then, using Misonix bone scalpel to create a trough in both the left and the right side of the L2 and L3 vertebrae. The central portion of lamina with the spinous processeswere removed en bloc. We widened out our decompression, doing partial medial facetectomies at L2-L3, L3-L4. We widened out our foraminotomies bilaterally as well with the Kerrison rongeurs. We then retracted the nerve roots medially at L2-L3 on the left. A small disk bulge wasthere. We used bipolar electrocautery over the disk. We then incised the disk and a small amount of disk was removed. I did try to work distal as we knew there was somewhat of a fragment that was distal. It was not very satisfying there. We also looked centrally and again did not find a satisfying massive disk herniation. We took an x-ray to confirm that we were at L2-L3. We irrigated within the disk. We copiously irrigatedthe entire wound. All of our counts were correct. Methodical search was done prior to closure. We inserted some flowable hemostatic agent and fibrillar. We inserted a deep drain. We closed in interrupted fashion using 0 Vicryl, followed by 2-0 Vicryl, followed by 3-0 Monocryl. The patient was taken to recovery in stable condition. Electronically AuthenticatedBy: Nixon Good MD 02/12/201908:10 A Nixon Good MD es TD: 10:32 A TT: 10:48 A Doc #: [id number] cc: Nixon Good MD Nixon Good MD PROCEDURES Final Result * BLOOD TYPE AND ANTIBODY SCREEN (01/30/2019 8:00 AM EDT) BLOOD GROUP ABO A [facility] RH-(D) Positive [facility] ANTIBODY SCREEN Negative Negative [facility] 01/30/2019 8:00 AM EDT 01/30/2019 8:00 AM EDT Nixon Good MD LABORATORY Final Result Performing Organization Address City/State/[facility] Co de Phone Number [facility] [address] [place] [address] * MRSA CULTURE SCREEN, NASAL ONLY (01/22/2019 11:38 AM EDT) Pathologist [facility] [place] Methicillin Resistant Staphylococcus Aureus Screen SEE NOTE [facility] Comment: ??MRSA CULTURE SCREEN ??MICRO NUMBER: ?[id number] ??TEST STATUS: ? FINAL ??SPECIMEN SOURCE: ?? NOT GIVEN ??SPECIMEN QUALITY: ??ADEQUATE ??RESULT: ?No methicillin resistant Staphylococcus aureus ? (MRSA) isolated. 01/22/2019 11:3 8 AM EDT 01/22/2019 9:19 PM EDT Narrative Resulting Agency Comment [id number] us Ann Christina SPOOLING OPERATOR LABORATORY Final Res ult [facility] [address] [place] [address] * EKG-TO BE READ & BILLED BY ADULT OR PEDIATRIC CARDIOLOGY (01/22/2019 10:41 AM EDT) Pathologist [facility] [place] VENTRICULAR RATE 79 BPM MUS E EKG SYSTEM ATRIAL RATE 79 BPM MUSE EKG SYSTEM P-R INTERVAL 154 ms MUSE EK G SYSTEM QRS DURATION 90 ms MUSE EK G SYSTEM QT 390 ms MUSE EKG SYSTEM QTC 447 ms MUSE EKG SYSTEM P AXIS 38 degrees MUSE EKG SYSTEM R AXIS 43 degrees MUSE EKG SYSTEM T AXIS 0 degrees MUSE EKG SYSTEM EKG INTERPRETATION Normal sinus rhythm Nonspecific ST and T wave abnormality Abnormal ECG No previous ECGs available Confirmed by SANTOS CAST ([id number]) on 01/23/2019 12:06:37 AM MUSE EKG SYSTEM 01/22/2019 10:4 1 AM EDT 01/23/2019 12:06 AM EDT Ann Christina SPOOLING OPERATOR CARDIOVASCULAR-WITH INBSK T RTG Final Result MUSE EKG SYSTEM * (ABNORMAL) CBC INCLUDES DIFFERENTIAL AND PLATELET COUNT (01/22/2019 10:36 AM EDT) Pathologist [facility] [place] WBC 6.6 3.8 - 10.8 Thousand/u L [facility] RBC 4.97 3.80 - 5.10 Million/uL [facility] Hemoglobin 13.2 11.7 - 15.5 g/dL [facility] Hematocrit 39.9 35.0 - 45.0 % [facility] MCV 80.3 80.0 - 100.0 fL [facility] MCH 26.6(L) 27.0 - 33.0 pg [facility] MCHC 33.1 32.0 - 36.0 g/dL [facility] RDW 13.5 11.0 - 15.0 % [facility] PLT 370 140 - 400 Thousand/u L [facility] MPV 10.7 7.5 - 12.5 fL [facility] Neutrophils # 2785 1500 - 7800 cells/uL [facility] Lymphocytes # 3023 850 - 3900 cells/uL [facility] Monocytes # 706 200 - 950 cells/uL [facility] Eosinophils # 53 15 - 500 cells/uL [facility] Basophils # 33 0 - 200 cells/uL [facility] Neutrophils % 42.2 % [facility] Lymphocytes % 45.8 % [facility] Monocytes % 10.7 % [facility] Eosinophils % 0.8 % [facility] Basophils % 0.5 % [facility] 01/22/2019 10:3 6 AM EDT 01/22/2019 9:38 PM EDT Narrative Resulting Agency Comment [id number] Ann Christina SPOOLING OPERATOR LAB SAME DAY RESULT Final Result Performing Organization Address [facility] de Phone Number [facility] [address] [place] [address] * (ABNORMAL) VITAMIN D, 25-HYDROXY, TOTAL, IMMUNOASSAY (01/22/2019 10:36 AM EDT) Vitamin D, 25-OH, Total 26(L) 30 - 100 ng/mL [facility] Comment: Vitamin D Status ? 25-OH Vitamin D: Deficiency: ?<20 ng/mL Insufficiency: ? 20 - 29 ng/mL Optimal: ? > or = 30 ng/mL For 25-OH Vitamin D testing on patients on D2-supplementation and patients for whom quantitation of D2 and D3 fractions is required, the QuestAssureD(TM) 25-OH VIT D, (D2,D3), LC/MS/MS is recommended: order code 36096 (patients >2yrs). For more information on this test, go to: http://education.[employer]/faq/MEW200 (This link is being provided for informational/educational purposes only.) 01/22/2019 10:3 6 AM EDT 01/22/2019 9:38 PM EDT Narrative Resulting Agency Comment [id number] Ann Christina SPOOLING OPERATOR LABORATORY Final Res ult Performing Organization Address City/[facility]/ZIP Co de Phone Number [facility] [address] [place] [address] * (ABNORMAL) BASIC METABOLIC PANEL WITH (GFR) (01/22/2019 10:36 AM EDT) Glucose 88 65 - 99 mg/dL [facility] Comment:Fasting reference in terval Urea Nitrogen Blood (BUN) 17 7 - 25 mg/dL [facility] Creatinine 0.76 0.50 - 1.05 mg/dL [facility] Comment: For patients >49 years of age, the reference limit for Creatinine is approximately 13% higher for people identified as -Armenian. EGFR 89 > OR = 60 mL/min/1 .73m2 [facility] GFR () 103 > OR = 60 mL/min/1 .73m2 [facility] BUN/Creatinine Ratio NOT APPLICABLE 6 - 22 (calc) [facility] Sodium 140 135 - 146 mmol/L [facility] Potassium 3.3(L) 3.5 - 5.3 mmol/L [facility] Chloride 101 98 - 110 mmol/L [facility] Carbon dioxide 29 20 - 32 mmol/L [facility] Calcium 10.0 8.6 - 10.4 mg/dL [facility] 01/22/2019 10:3 6 AM EDT 01/22/2019 9:38 PM EDT Narrative [facility] - 01/23/2019 2:23 AM EDT Please note that this estimated GFR does not include an adjustment for the patient's height or weight, and can therefore, be viewed as reliable only for patients with heights between 60 and 72 . More precise quantification using a 24-hour urine sample or height-based algorithm is recommended for patients outside of this range of height and for those individuals with more precise needs for GFR calculation. Resulting Agency Comment [id number] us Ann Christina SPOOLING OPERATOR LABORATORY Final Res ult [facility] [address] [place] [address] * MRI LUMBAR SPINE W/O CONTRAST FC (12/03/2018 8:40 AM EDT) Anatomical Region Laterality Modality Spine Magnetic Resonan ce 12/04/2018 12:2 2 PM EDT Narrative 12/04/2018 12:22 PM EDT EXAM: ??MRI LUMBAR SPINE WITHOUT CONTRAST: COMPARISON: CR ??- SPINE LUMBAR XRAY ??- 11/12/2018 08:53 AM EDT TECHNIQUE: ??Sagittal T1, T2, STIR and axial T2 weighted images. FINDINGS: Vertebral body heights, alignment and marrow signal are unremarkable. T11-12: Disc desiccation, decreased disc height, anterior osteophytes, small posterior disc bulge. ??No effect and lower canal or cord. T12-L1 and L1-2: No significant disc pathology. ??No canal or foraminal stenosis. L2-3: Disc desiccation, slight decrease in disc height. ??Broad-based posterior disc bulge. ??Focal left paramedian disc herniation prolapses inferiorly. ??The prolapsed disc fragment measures approximately 8 x 8 x 6 mm. ??There is moderately severe left and moderate right foraminal narrowing secondary to disc bulge. L3-4: Right base posterior disc bulge with slight prolapsed inferiorly in the midline. ??Mild facet joint hypertrophy. ??No significant central canal narrowing. ??Moderate foraminal stenoses. L4-5: Disc bulge. ??Facet joint hypertrophy. ??No central canal narrowing. ?? Moderately severe right and mild to moderate left foraminal narrowing. L5-S1: Disc bulge, without canal narrowing. ??Facet joint hypertrophy. ?? Moderately severe right and moderate left foraminal stenosis. No abnormal signal intensity is present within the lower spinal cord. The conus terminates at an appropriate level. The paraspinous soft tissues are unremarkable. IMPRESSION: ?? Degenerative changes of discs and facet joints at multiple levels, with focal left lateral recess disc herniation at L2-3 and potentially significant foraminal stenoses as detailed above. Procedure Note Levi Maddox MD - 12/04/2018 EXAM: MRI LUMBAR SPINE WITHOUT CONTRAST: COMPARISON: CR - SPINE LUMBAR XRAY - 11/12/2018 08:53 AM EDT TECHNIQUE: Sagittal T1, T2, STIR and axial T2 weighted images. FINDINGS: Vertebral body heights, alignment and marrow signal are unremarkable. T11-12: Disc desiccation, decreased disc height, anterior osteophytes,small posterior disc bulge. No effect and lower canal or cord. T12-L1 and L1-2: No significant disc pathology. No canal or foraminal stenosis. L2-3: Disc desiccation, slight decrease in disc height. Broad-basedposterior disc bulge. Focal left paramedian disc herniation prolapses inferiorly.The prolapsed disc fragment measures approximately 8 x 8 x 6 mm. There is moderately severe left and moderate right foraminal narrowing secondary todisc bulge. L3-4: Right base posterior disc bulge with slight prolapsed inferiorly inthe midline. Mild facet joint hypertrophy. No significant central canal narrowing. Moderate foraminal stenoses. L4-5: Disc bulge. Facet joint hypertrophy. No central canal narrowing. Moderately severe right and mild to moderate left foraminal narrowing. L5-S1: Disc bulge, without canal narrowing. Facet joint hypertrophy. Moderately severe right and moderate left foraminal stenosis. No abnormal signal intensity is present within the lower spinal cord. Theconus terminates at an appropriate level. The paraspinous soft tissues are unremarkable. IMPRESSION: Degenerative changes of discs and facet joints at multiple levels, withfocal left lateral recess disc herniation at L2-3 and potentially significant foraminal stenoses as detailed above. Nixon Good MD IMG MR NO CONTRAST ORDERABLES F inal Result * UNLISTED MAGNETIC REASANCE PROCEDURE (01/26/2018) 01/26/2018 Juan Francisco Butts CONTRAST STUDY- OTHER Final Result * MRI SPINE (09/20/2017) Only the most recent of3 resultswithin the time period is included. 09/20/2017 us Unknown Provider CONTRAST STUDY- OTHER Final Res ult Visit Diagnoses Diagnosis Start Date Low back pain of over 3 months duration 11/12/2018 Facet arthritis of lumbar region Lumbosacral spondylosis without myelopathy 11/12/2018 Foraminal stenosis of lumbar region Spinal stenosis, lumbar region, without neurogenic claudication 11/12/2018 Chronic bilateral low back pain with bilateral sciatica 11/12/2018 Low back pain of over 3 months duration 11/12/2018 Facet arthritis of lumbar region Lumbosacral spondylosis without myelopathy 11/12/2018 Foraminal stenosis of lumbar region Spinal stenosis, lumbar region, without neurogenic claudication 11/12/2018 Chronic bilateral low back pain with bilateral sciatica 11/12/2018 Lumbosacral stenosis with neurogenic claudication Spinal stenosis, lumbar region, with neurogenic claudication 11/12/2018 Chronic bilateral low back pain with bilateral sciatica 12/03/2018 Low back pain of over 3 months duration 12/09/2018 Facet arthritis of lumbar region Lumbosacral spondylosis without myelopathy 12/09/2018 Foraminal stenosis of lumbar region Spinal stenosis, lumbar region, without neurogenic claudication 12/09/2018 Lumbosacral stenosis with neurogenic claudication Spinal stenosis, lumbar region, with neurogenic claudication 12/09/2018 Abnormal EKG Nonspecific abnormal electrocardiogram (ECG) (EKG) 01/22/2019 Preop examination Preoperative examination, unspecified 01/22/2019 Low back pain of over 3 months duration 01/22/2019 Lumbosacral stenosis with neurogenic claudication Spinal stenosis, lumbar region, with neurogenic claudication 01/22/2019 Essential hypertension 01/22/2019 Latex allergy Allergy to latex 01/22/2019 Low vitamin D level 01/22/2019 Mixed hyperlipidemia 01/22/2019 Preop examination Preoperative examination, unspecified 01/22/2019 Low back pain of over 3 months duration 01/22/2019 Lumbosacral stenosis with neurogenic claudication Spinal stenosis, lumbar region, with neurogenic claudication 01/22/2019 Essential hypertension 01/22/2019 Latex allergy Allergy to latex 01/22/2019 Low vitamin D level 01/22/2019 Mixed hyperlipidemia 01/22/2019 Night muscle spasms Spasm of muscle 02/11/2019 Low back pain, unspecified back pain laterality, unspecified chronicity, with sciatica presence unspecified 02/21/2019 Low back pain, unspecified back pain laterality, unspecified chronicity, with sciatica presence unspecified 02/24/2019 Low back pain of over 3 months duration 02/24/2019 Low back pain of over 3 months duration 04/21/2019 Low back pain of over 3 months duration 04/21/2019 Facet arthritis of lumbar region Lumbosacral spondylosis without myelopathy 04/21/2019 Low back pain of over 3 months duration 11/04/2019 Shoulder pain, unspecified chronicity, unspecified laterality 11/04/2019 Right hip pain Pain in joint, pelvic region and thigh 06/30/2020 Cervical spine pain Cervicalgia 06/04/2023 Cervical spine pain Cervicalgia 06/05/2023 Radiculitis Neuralgia, neuritis, and radiculitis, unspecified 06/05/2023 Chronic neck pain Cervicalgia 06/05/2023 Numbness and tingling in left hand Disturbance of skin sensation 06/05/2023 Left arm pain Pain in limb 09/10/2023 Numbness and tingling of left thumb Disturbance of skin sensation 09/10/2023 Radiculitis Neuralgia, neuritis, and radiculitis, unspecified 02/18/2024 Radiculitis Neuralgia, neuritis, and radiculitis, unspecified 03/21/2024 Chronic neck pain Cervicalgia 03/21/2024 Numbness and tingling in left hand Disturbance of skin sensation 03/21/2024 Radiculitis Neuralgia, neuritis, and radiculitis, unspecified 04/15/2024 Chronic neck pain Cervicalgia 04/15/2024 Numbness and tingling in left hand Disturbance of skin sensation 04/15/2024 Numbness and tingling in left hand Disturbance of skin sensation 05/05/2024 Chronic neck pain Cervicalgia 05/05/2024 Foraminal stenosis of cervical region Spinal stenosis in cervical region 05/05/2024 Left wrist pain Pain in joint, forearm 05/05/2024 Care Teams Undercoat Sprayer Relationship Specialty Start Date End Date Vinny Avila MD [address] [place] [address] PCP - General Internal Medicine 06/05/23
--- OUTSIDE RECORDS SUMMARY | 2024-11-06 07:47 | XMS_ITS | Encounter Summary ---
Author Organization [facility] Address [address] [place] [address] Care Team Providers Care Painter Drum Name Role Phone Clement Trent Primary Care Provider [phone] Vinny Avila MD Primary Care Provider [phone] Encounter Details Date Type Department Care Team (Late st Contact Info) Description 01/22/2019 Orders Only [facility] Pre-Admission Testing [address] [facility] [address] [place] [id number] Ann Christina NP Social History Tobacco Use Types Packs/Day Years Used Date Smoking Tobacco: Never Smokeless Tobacco: Never Comments No Sex and Gender Information Value Date Recorded Sex Assigned at Not on file Legal Sex Female 9:14 AM EDT Gender Identity Not on file Sexual Orientation Not on file documented as of this encounter Plan of Treatment Not on file documented as of this encounter Procedures * Due to [place] state law, this organization might not be sharing negative HIV tests. Procedure Name Priority Date/Time Associated Diagnosis Comments MRSA CULTURE SCREEN, NASAL ONLY Routine 01/22/2019 [...] allergy Low vitamin D level Mixed hyperlipidemia CBC INCLUDES DIFFERENTIAL AND PLATELET COUNT Routine 01/22/2019 10:36 AM EDT Preop examination Low back pain of over 3 months duration Lumbosacral stenosis with neurogenic claudication (HCC) Essential hypertension Latex allergy VITAMIN D, 25-HYDROXY, TOTAL, IMMUNOASSAY Routine 01/22/2019 10:36 AM EDT Preop examination Low back pain of over 3 months duration Lumbosacral stenosis with neurogenic claudication (HCC) Essential hypertension Latex allergy Low vitamin D level BASIC METABOLIC PANEL WITH (GFR) Routine 01/22/2019 10:36 AM EDT Preop examination Low back pain of over 3 months duration Lumbosacral stenosis with neurogenic claudication (HCC) Essential hypertension Latex allergy documented in this encounter Results * Due to [place] state law, this organization might not be sharing negative HIV tests. * MRSA CULTURE SCREEN, NASAL ONLY (01/22/2019 11:38 AM EDT) Methicillin Resistant Staphylococcus Aureus Screen SEE NOTE [facility] Comment: ??MRSA CULTURE SCREEN ??MICRO NUMBER: ?[id number] ??TEST STATUS: ? FINAL ??SPECIMEN SOURCE: ?? NOT GIVEN ??SPECIMEN QUALITY: ??ADEQUATE ??RESULT: ?No methicillin resistant Staphylococcus aureus ? (MRSA) isolated. 01/22/2019 11:3 8 AM EDT 01/22/2019 9:19 PM EDT Narrative Resulting Agency Comment [id number] us Ann Christina [facility]OP[facility] REPRES[facility] Final Res ult [facility] [address] [place] [address] * EKG-TO BE READ & BILLED BY ADULT OR PEDIATRIC CARDIOLOGY (01/22/2019 10:41 AM EDT) VENTRICULAR RATE 79 BPM MUS E EKG [...] ECG No previous ECGs available Confirmed by JULIO VIGIL ([id number]) on 01/23/2019 12:06:37 AM [facility] 01/22/2019 10:4 1 AM EDT 01/23/2019 12:06 AM EDT Ann Christina NP CARDIOVASCULAR-WITH INBSK T RTG Final Result [facility] * (ABNORMAL) VITAMIN D, 25-HYDROXY, TOTAL, IMMUNOASSAY (01/22/2019 10:36 AM EDT) Vitamin D, 25-OH, Total 26(L) 30 - 100 ng/mL [facility] Comment: Vitamin D Status ? 25-OH Vitamin D: Deficiency: ?<20 ng/mL Insufficiency: ? 20 - 29 ng/mL Optimal: ? > or = 30 ng/mL For 25-OH Vitamin D testing on patients on D2-supplementation and patients for whom quantitation of D2 and D3 fractions is required, the QuestAssureD(TM) 25-OH VIT D, (D2,D3), LC/MS/MS is recommended: order code 60073 (patients >2yrs). For more information on this test, go to: http://education.Eventable.linkedFA/faq/XQF746 (This link is being provided for informational/educational purposes only.) 01/22/2019 10:3 6 AM EDT 01/22/2019 9:38 PM EDT Narrative Resulting Agency Comment [id number] us Ann Christina [facility] Final Res ult [facility] [address] [place] [address] * (ABNORMAL) CBC INCLUDES DIFFERENTIAL AND PLATELET [...] 9:38 PM EDT Narrative Resulting Agency Comment [id number] us Ann Sanford MARKETING DEVELOPMENT REPRESENTATIVE LAB SAME DAY RESULT Final Result [facility] [address] [place] [address] * (ABNORMAL) BASIC METABOLIC PANEL WITH (GFR) (01/22/2019 10:36 AM EDT) Pathologist [facility] Glucose 88 65 - 99 mg/dL [facility] Comment:Fasting reference in terval Urea Nitrogen Blood (BUN) 17 7 - 25 mg/dL [facility] Creatinine 0.76 0.50 - 1.05 mg/dL [facility] Comment: For patients >49 years of age, the reference limit for Creatinine is approximately 13% higher for people identified as -H[place]ian. EGFR 89 > OR = 60 mL/min/1 [...] needs for GFR calculation. Resulting Agency Comment [id number] Ann Christina [facility]EL[facility] REPRES[facility] Final Res ult [facility] [address] [place] [address] documented in this encounter Visit Diagnoses Diagnosis Preop examination Preoperative examination, unspecified Low back pain of over 3 months duration Lumbosacral stenosis with neurogenic claudication Spinal stenosis, lumbar region, with neurogenic claudication Essential hypertension Latex allergy Allergy to latex Low vitamin D level Mixed hyperlipidemia documented in this encounter Care Teams Painter Drum Relationship Specialty Start Date End Date Clement Trent [facility]. [address] [place] [phone] PCP - General Internal Medicine 10/24/18 06/04/23 Vinny Avila MD [address] [place] [address] PCP - General Internal Medicine 06/05/23 documented as of this encounter
--- OUTSIDE RECORDS SUMMARY | 2024-11-06 07:47 | XMS_ITS | Encounter Summary ---
Author Organization [facility] Address [address] [place] [address] Care Team Providers Care Kettle Cleaner Name Role Phone Miley Clement J Primary Care Provider [phone] Vinny Avila MD Primary Care Provider [phone] Encounter Details Date Type Department Care Team (Late st Contact Info) Description 02/21/2019 Orders Only [facility] Orthopedic Surgery [address] [phone] Nixon Good MD [address] [place] [id number] Social History Tobacco Use Types Packs/Day Years Used Date Smoking Tobacco: Never Smokeless Tobacco: Never Comments No Sex and Gender Information Value Date Recorded Sex Assigned at Not on file Legal Sex Female 9:14 AM EDT Gender Identity Not on file Sexual Orientation Not on file documented as of this encounter Plan of Treatment Not on file documented as of this encounter Results * Due to [place] state law, this organization might not be sharing negative HIV tests. * XRAY SPINE, LUMBOSACRAL; 2 OR 3 VIEWS FC (02/24/2019 9:33 AM EDT) Anatomical Region Laterality Modality Spine Radiographic Muna ging 02/24/2019 11:4 4 AM EDT Narrative 02/24/2019 11:44 AM EDT Lumbar spine standing AP and lateral views. Comparison: MRI 12/03/2018. ?? Findings: L2 and L3 laminectomy. ??Mild disc space narrowing with spondylotic spurring at L1-L2 and L2-L3. ??Moderate disc space narrowing at L5-S1. ??Minimal posterior disc space narrowing at L4-L5. ??No significant malalignment. ??Sacroiliac joints are normal. ??Vertebral body heights maintained. ??No suspicious bony lesions. IMPRESSION: Status post laminectomy at L2 and L3. ?? Multilevel degenerative disc disease at L2-L3, L3-L4, L4-L5, and L5-S1. Procedure Note Esthela Roland MD - 02/24/2019 Lumbar spine standing AP and lateral views. Comparison: MRI 12/03/2018. Findings: L2 and L3 laminectomy. Mild disc space narrowing with spondyloticspurring at L1-L2 and L2-L3. Moderate disc space narrowing at L5-S1. Minimalposterior disc space narrowing at L4-L5. No significant malalignment. Sacroiliacjoints are normal. Vertebral body heights maintained. No suspicious bonylesions. IMPRESSION: Status post laminectomy at L2 and L3. Multilevel degenerative disc disease at L2-L3, L3-L4, L4-L5, and L5-S1. Nixon Good MD IMG XRAY NO CONTRAST ORDERABLES Final Result documented in this encounter Visit Diagnoses Diagnosis Low back pain, unspecified back pain laterality, unspecified chronicity, with sciatica presence unspecified Low back pain, unspecified back pain laterality, unspecified chronicity, with sciatica presence unspecified documented in this encounter Care Teams Kettle Cleaner Relationship Specialty Start Date End Date Clement Trent [facility]. [address] [place] [phone] PCP - General Internal Medicine 10/24/18 06/04/23 Vinny Avila MD [address] [place] [address] PCP - General Internal Medicine 06/05/23 documented as of this encounter
[2024-11-06 11:27] LABS: MANUAL DIFF FLAG NO
[2024-11-06 11:37] LABS: Basophils Percent Auto 0.4 % (0-2); Eosinophils Absolute Auto 0.1 X10*3/uL (0.0-0.4); Eosinophils Percent Auto 1.6 % (0-4); Hematocrit 42.1 % (37.0-47.0); Hemoglobin 13.4 g/dl (12.0-16.0); Imm Gran Abs Auto 0.03 X10*3/uL (0.00-0.03); Imm Gran Pct Auto 0.4 % (0.0-0.4); Lymphocytes Absolute Auto 3.2 X10*3/uL (1.2-4.9); Lymphocytes Percent Auto 43.5 % (20-40); Mean Corpuscular HGB Conc 31.8 g/dl (31.0-35.0); Mean Corpuscular Hemoglobin 27.1 pg (27.0-33.0); Mean Corpuscular Volume 85.2 fL (80.0-98.0); Mean Platelet Volume 11.2 fL (9.4-12.3); Monocytes Absolute Auto 0.7 X10*3/uL (0.1-1.2); Monocytes Percent Auto 9.7 % (2-11); Neutrophils Absolute Auto 3.3 x10*3/uL (2.0-8.3); Neutrophils Percent Auto 44.4 % (45-73); Platelet Count 378 X10*3/uL (160-400); Red Blood Count 4.94 X10*6/uL (4.20-5.50); Red Cell Distribution Width 13.2 % (11.0-16.0); White Blood Count 7.4 X10*3/uL (4.8-10.8)
[2024-11-06 11:48] LABS: Appearance Urine Clear; Color Urine Yellow; Glucose Urine UA Negative (Negative); Leukocyte Esterase Urine Negative (Negative); Nitrite Urine Negative (Negative); Urine Blood Negative (Negative); Urine Ketones Negative (Negative); Urine Protein Negative (Neg-Trace)
[2024-11-06 12:26] LABS: Alanine Aminotransferase 27 U/L (0-31); Albumin Level 4.4 g/dL (3.5-5.0); Anion Gap 11 (12-20); Aspartate Amino Transferase 32 U/L (5-31); Bilirubin Total 0.3 mg/dL (0.0-1.0); Blood Urea Nitrogen 18 mg/dL (9-16); Calcium 9.6 mg/dL (8.4-10.2); Carbon Dioxide 28 mmol/L (22-29); Chloride 104 mmol/L (96-108); Cholesterol 163 mg/dL (<200); Estimated Glomerular Filt Rate > 60; Glucose Fasting 94 mg/dL (60-99); HDL Cholesterol 43 mg/dL (>40); LDL Cholesterol Calculated 82 mg/dL (<100); Potassium 4.2 mmol/L (3.3-5.1); Sodium 139 mmol/L (135-145); TSH reflex Free T4 1.82 uIU/mL (0.32-4.0); Total Protein 7.1 g/dL (6.5-8.0); Triglycerides 192 mg/dL (<150); Uric Acid 7.5 mg/dL (2.4-5.7); Vitamin D 25-OH Total 54.2 ng/mL (>30)
[2024-11-06 12:29] LABS: Rheumatoid Factor 34.7 IU/mL (<15.0)
[2024-11-06 12:33] LABS: Alkaline Phosphatase 71 U/L (39-117)
[2024-11-10 20:15] LABS: Cyclic Citrullinated Peptide <16 UNITS
[2024-11-11 10:49] LABS: Anti Nuclear Antibody Screen NEGATIVE (NEGATIVE)
== END 2024-11-06 07:45 | disposition home or self-care (01) ==
LOC: HO.WFDLDS 07:44
PROVIDERS: Visit Provider Internal Medicine
DX: E78.00 Pure hypercholesterolemia, unspecified (principal); M25.50 Pain in unspecified joint; R76.8 Other specified abnormal immunological findings in serum; E79.0 Hyperuricemia without signs of inflammatory arthritis and tophaceous disease; E55.9 Vitamin D deficiency, unspecified; D64.9 Anemia, unspecified; R30.0 Dysuria
CPT/HCPCS: 36415; 80053; 80061; 81003; 82306; 84443; 84550; 85025; 86038; 86200; 86431

== ENCOUNTER 2024-11-10 16:33 | Outpatient (AMB) | payer OTHER, SELFPAY ==
[2024-11-10 16:34] VITALS: BP 140/78; PULSE 74; O2SAT 98; BMI 36.4
--- NOTE | 2024-11-10 16:34 | A.OFFPC_ITS ---
Vital Signs 11/10/24 16:34 Height 5 ft 5 in Weight 219 lb BMI 36.4 BP 140/78 H Blood Pressure Location Lt brachial Position Sitting Pulse 74 Pulse Source Pulse Oximeter Pulse Oximetry (%) 98 Oxygen Delivery Method Room Air Intake Visit Reasons: 4 Months F/U - Rescheduled Chief Revenue Officer Required: No Accompanied by: Self / Same As Patient Allergies adhesive tape Allergy (Intermediate, Verified 11/10/24 17:09) Skin Blisters erythromycin base [ERYTHROMYCIN BASE] Allergy (Intermediate, Verified 11/10/24 17:09) Nausea and Vomiting latex [LATEX] Allergy (Intermediate, Verified 11/10/24 17:09) Rash meperidine [From DEMEROL] Allergy (Intermediate, Verified 11/10/24 17:09) Palpitations statin Allergy (Intermediate, Uncoded 11/10/24 17:09) joint pains, lethargic Medication List - Last Reconciled 11/10/24 by Vinny vAila MD aspirin (Adult Aspirin Regimen) 81 mg PO .11PM evolocumab (Repatha SureClick) 140 mg subcut Q2W hydrochlorothiazide 12.5 mg (1/2 x 25 mg) PO DAILY 90 days metoprolol tartrate 50 mg PO .11AM+11PM multivitamin (Daily Multi-Vitamin tablet) 1 tab PO DAILY pantoprazole 40 mg PO DAILY 90 days Tobacco use date assessed: 11/10/24 Dental Screening Dental Screen Date: 11/10/24 HPI 4 Months F/U - Rescheduled HPI Details Patient comes in today for follow-up visit States that she feels okay She denies any headaches or dizziness Denies any chest pains, no shortness of breath No nausea/vomiting, reports (+) on and off mild/vague pain over her left upper abdomen lately No change in bowel habits noted Adds that she has been experiencing on and off pain over the medial aspect of her left foot recently She has not noticed any swelling or physical findings on her foot and denies any recent foot trauma or injury She had her follow-up labs done a few days ago - to discuss her results [facility] Medical History Cervical spondylosis Coronary artery disease GERD (gastroesophageal reflux disease) RUQ abdominal pain Pure hypercholesterolemia Lumbar spinal stenosis Benign essential hypertension Obesity (BMI 30-39.9) Osteoarthritis Hypertension, essential Surgical History Hx of colonoscopy (~2014) Hx of heart artery stent (~05/18/22) S/P total left hip arthroplasty (~01/21/21) S/P total right hip arthroplasty (~09/2020) Hx of lumbosacral spine surgery (~2018) History of partial hysterectomy History of knee surgery History of ear surgery History of tonsillectomy History of hip surgery History of section Family History Father CVD (cardiovascular disease) History of quadruple bypass Mother CVD (cardiovascular disease) Melanoma Brother No problems noted. Brother No problems noted. Son No problems noted. Son No problems noted. Paternal Aunt Breast cancer Social History Household Members: Family Housing: House Are you a primary wound care nurse to a significant other at home: No Do you presently have visiting nurse or other home services: No Alcohol intake: current Alcohol intake frequency: holidays/special occasions only Patient Tobacco Use Status: Never used Tobacco e-Cigarette/Vaping Use: Never Used Second Hand Smoke Exposure: No service: No Current occupational status: employed Current occupational exposures/hazards: No Cognitive needs: No Hearing needs: No Vision needs: Yes Questionnaire PHQ-9 Over the last 2 weeks, how often have you been bothered by any of the following problems? 1. Little interest or pleasure in doing things: not at all 2. Feeling down, depressed, or hopeless: not at all 3. Trouble falling or staying asleep, or sleeping too much: not at all 4. Feeling tired or having little energy: not at all 5. Poor appetite or overeating: not at all 6. Feeling bad about yourself - or that you are a failure or have let yourself or your family down: not at all 7. Trouble concentrating on things, such as reading the newspaper or watching television: not at all 8. Moving or speaking so slowly that other people could have noticed. Or the opposite - being so fidgety or restless that you have been moving around a lot more than usual: not at all 9. Thoughts that you would be better off or of hurting yourself in some way: not at all Total score: 0 Depression Screening Interpretation: Negative Depression Screening Done: Yes 37089 - PHQ-9 Billing: Yes Source: Developed by Drs. Hernando Lilly, Macy Sousa, Stevie Sloan and colleagues, with an educational joseline from [employer]. Thrive Questionnaire Date Thrive assessed: 11/10/24 I am a: Patient What is your living situation today?: I have a steady place to live Within the past 12 months, did the food you bought not last and you didn't have the money to get more?: Sometimes True Within the past 12 months, did you worry whether your food would run out before you got money to buy more?: Sometimes True Do you have trouble paying for medicines?: No Do you have trouble getting transportation to medical appointments?: No Do you have trouble paying your heating and electricity bill?: No Do you have trouble taking care of your child, family member or friend?: No Do you have trouble with day-to-day activities such as bathing, preparing meals, shopping, managing finances, etc.?: No Are you currently unemployed and looking for a job?: Yes Are you interested in more education?: No Please select the resources that you would like help with: None Currently or been in a relationship where the following occur: No concerns reported THRIVE Score: 2 AUDIT C Alcohol Use Questionnaire (AUDIT-C) 1. How often do you have a drink containing alcohol?: Monthly or less 2. How many drinks containing alcohol do you have on a typical day when you are drinking?: 1 or 2 3. How often do you have six or more drinks on one occasion?: Never Total Score: 1 Score Reviewed/Action Taken: Yes YARELI-7 AMB Questionnaire YARELI-7 Date YARELI - 7 assessed: 11/10/24 Feeling nervous, anxious, or on edge: 1 = Several days Not being able to stop or control worryin = Not at all Worrying too much about different things: 1 = Several days Trouble relaxin = Not at all Being so restless that it is hard to sit still: 0 = Not at all Becoming easily annoyed or irritable: 0 = Not at all Feeling afraid as if something awful might happen: 0 = Not at all Total YARELI-7 score (0-4 normal; 5-9 mild; 10-14 moderate; 15-21 severe): 2 Source: Developed by Drs. Hernando Lilly, Macy Sousa, Stevie Sloan and colleagues, with an educational joseline from [employer]. Review of Systems Const Denies chills, Denies fatigue, Denies fever(s) and Denies headache(s) ENT Denies dysphagia, Denies dizziness, Denies otalgia, Denies headache(s), Reports neck pain, Denies odynophagia and Denies sore throat Card Denies chest pain, Denies palpitations and Denies dyspnea Resp Denies cough, Denies dyspnea and Denies wheezing GI Reports abdominal pain (on and off, over the LUQ - mild), Denies constipation, Denies dysphagia, Denies heartburn, Denies diarrhea, Denies nausea, Denies odynophagia and Denies vomiting Denies difficulty voiding, Denies nocturia, Denies dysuria and Denies urinary urgency Musc Details: (+) recurrent pain over the medial aspect of the left foot Reports back pain (on and off), Reports neck pain and Reports numbness (of the left thumb) Skin/Breast Denies rash Neuro Denies dizziness, Denies headache(s) and Reports numbness (of the left thumb) Psych Denies anxiety and Denies depression Endo Denies fatigue and Denies palpitations Live/Lymph Denies easy bruising Aller/Immun Denies wheezing Physical exam (Primary Care) Vital Signs: Last Vital Signs Pulse 74 11/10/24 16:34 BP 140/78 H 11/10/24 16:34 Pulse Ox 98 11/10/24 16:34 Oxygen Delivery Method Room Air 11/10/24 16:34 BMI result Body Mass Index 36.4 Tobacco/Smoking Status: Tobacco use Status Tobacco use date assessed 11/10/24 11/10/24 16:36 Patient Tobacco Use Status Never used Tobacco 11/10/24 16:36 e-Cigarette/Vaping Use Never Used 11/10/24 16:36 PHQ-9: PHQ-9 Score PHQ-9: Total score 0 11/10/24 17:11 Depression Screening Interpretation: Negative Thrive Assessment: Date of Thrive Assessment Date Thrive assessed 11/10/24 11/10/24 16:36 Currently or been in a relationship where the following occur: No concerns reported Const General: no acute distress and alert HENMT Ears: TM's normal bilaterally and EAC's normal Throat: Yes posterior oropharynx normal and Yes tonsils normal (no TP congestion) Neck Neck: Yes supple and No lymphadenopathy Thyroid: Thyroid normal Resp Auscultation: clear to auscultation bilaterally, no rales and no wheezes Cardio Rate: regular rate Rhythm: regular rhythm Heart sounds: no murmurs GI Palpation (GI): Soft to palpation, Tenderness to palpation present (GI) (minimal) in the LUQ, no guarding, not rigid and No Rebound tenderness present Auscultation: normal bowel sounds General: Yes no CVA tenderness Back/Spine/Pelvis Back: no CVA tenderness Cervical Spine: Cervical spine tenderness Thoracic/Lumbar Spine: lumbar spinal tenderness Skin Rashes: no rashes Extrem General: Yes no clubbing, cyanosis or edema Left lower extremity: foot Details: tenderness Location: of the medial foot and no edema Results Reviewed Results Reviewed: Laboratory Tests 11/06/24 11/06/24 07:47 07:51 WBC 7.4 Hgb 13.4 Hct 42.1 Plt Count 378 Sodium 139 Potassium 4.2 Creatinine 0.75 Estimated GFR > 60 Fasting Glucose 94 Uric Acid 7.5 H Calcium 9.6 AST 32 H ALT 27 Triglycerides 192 H Cholesterol 163 LDL Cholesterol, Calc 82 HDL Cholesterol 43 25-OH Vitamin D Total 54.2 TSH 1.82 Ur Specific [place] 1.020 Urine Protein Negative Urine Glucose (UA) Negative Urine Blood Negative Urine Nitrite Negative Ur Leukocyte Esterase Negative Rheumatoid Factor 34.7 H Coding Level of Care Code Est Pt Level 4 (45091) Complex EM visit Add On G2211 Diagnoses Coronary artery disease involving [place] coronary artery of [place] heart with angina pectoris I25.119 Coronary Disease-Associated Artery/Lesion type: [place] artery [place] vs. transplanted heart: [place] heart Associated angina: with unspecified form of angina Pure hypercholesterolemia E78.00 Benign essential hypertension I10 Lymphocytosis D72.820 Elevated rheumatoid factor R76.8 Vitamin D deficiency E55.9 Left upper quadrant abdominal pain R10.12 Primary osteoarthritis, unspecified site M19.91 Osteoarthritis location: unspecified site Osteoarthritis type: primary Spinal stenosis of lumbar region without neurogenic claudication M48.061 Neurogenic claudication status: without neurogenic claudication Cervical spondylosis M47.812 Pain and swelling of left lower extremity M79.605; M79.89 Hyperuricemia E79.0 Gastroesophageal reflux disease without esophagitis K21.9 Esophagitis presence: without esophagitis Obesity (BMI 30-39.9) E66.9 Additional Codes PHQ-9 - 64481 - PHQ-9 Billing: Yes ([id number]) Assessment & Plan Assessment & Plan (1) Coronary artery disease: Comment: S/P PCI with stenting (FABRIZIO) of the RCA on 05/18/2022 Code(s): I25.10 - Atherosclerotic heart disease of [place] coronary artery without angina pectoris Category: Medical Qualifiers: Coronary Disease-Associated Artery/Lesion type: [place] artery [place] vs. transplanted heart: [place] heart Associated angina: with unspecified form of angina Qualified Code(s): I25.119 - Atherosclerotic heart disease of [place] coronary artery with unspecified angina pectoris Plan: S/P PCI with stenting (FABRIZIO) of the RCA on 05/18/22; completed cardiac rehab earlier last year (2022) Continue Aspirin 81 mg QD and Metoprolol 50 mg BID; Brilinta was discontinued after 1 year of Tx Continue HCTZ 25 mg 1/2 tablet QD Follow up with cardiology (Dr. Debbie Leal) at [facility] as scheduled (2) Pure hypercholesterolemia: Comment: Unable to tolerate statins in the past Code(s): E78.00 - Pure hypercholesterolemia, unspecified Category: Medical Plan: Results of her labs done a few days ago reviewed and discussed with patient Reinforced low cholesterol diet Continue Repatha 140 mg SQ every 2 weeks - she has not been able to tolerate Ezetimibe and multiple statins in the past due to myalgia Will have patient recheck her labs and fasting lipids in 4 months for follow-up (3) Benign essential hypertension: Code(s): I10 - Essential (primary) hypertension Category: Medical Plan: Reinforced low sodium diet - goal is systolic BP of 120 mm or less Continue Metoprolol 50 mg BID and HCTZ 25 mg 1/2 tablet (12.5 mg) QD She is reminded to continue monitoring her BP regularly (4) Lymphocytosis: Code(s): D72.820 - Lymphocytosis (symptomatic) Category: Medical Plan: She has been referred to and seen by Dr. 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 Garcia once or twice a year for continuing surveillance to monitor for any progression of her condition (5) Elevated rheumatoid factor: Code(s): R76.8 - Other specified abnormal immunological findings in serum Category: Medical Plan: Her rheumatoid factor was elevated but her CCP Ab was normal and her ESR and CRP levels were also low when previously checked Patient was reassured that she DOES NOT have any evidence of RA at the time and we will continue to monitor these regularly/yearly for any changes Will also consider referral to rheumatology for further evaluation if anything changes (6) Vitamin D deficiency: Code(s): E55.9 - Vitamin D deficiency, unspecified Category: Medical Plan: Continue Vitamin D3 2000 units QD (7) Left upper quadrant abdominal pain: Code(s): R10.12 - Left upper quadrant pain Category: Medical Plan: Will send patient for abdominal US for further evaluation (8) Osteoarthritis: Comment: S/P bilateral hip arthroplasty at [facility] in [place], [place] Code(s): M19.90 - Unspecified osteoarthritis, unspecified site Category: Medical Qualifiers: Osteoarthritis location: unspecified site Osteoarthritis type: primary Qualified Code(s): M19.91 - Primary osteoarthritis, unspecified site Plan: She was taken off Celecoxib 200 mg QD after her PCI and has been advised by cardiology to avoid all NSAIDs completely as NSAIDs can raise her cardiac risks She is now just taking OTC Tylenol PRN for pain (9) Lumbar spinal stenosis: Comment: S/P laminectomy at [facility] in [place], [place] in 2019 Code(s): M48.061 - Spinal stenosis, lumbar region without neurogenic claudication Category: Medical Qualifiers: Neurogenic claudication status: without neurogenic claudication Qualified Code(s): M48.061 - Spinal stenosis, lumbar region without neurogenic claudication Plan: Reinforced activity and weight-lifting restrictions (10) Cervical spondylosis: Code(s): M47.812 - Spondylosis without myelopathy or radiculopathy, cervical region Category: Medical Plan: Her cervical spine x-rays done in May 2023 revealed (+) grade 1 retrolisthesis and degenerative spondylosis of the C5-C6, with C5 impingement She was seen by orthopedics (Dr. Nixon Good) in [place] who recommended physical therapy and gentle cervical traction, which patient is still doing She had a cervical spine MRI done in [place] back on 04/15/2024 for further evaluation Follow up with orthopedics as scheduled (11) Pain and swelling of left lower extremity: Code(s): M79.605 - Pain in left leg; M79.89 - Other specified soft tissue disorders Category: Medical Plan: Will send patient for x-rays of the left foot for further evaluation (12) Hyperuricemia: Code(s): E79.0 - Hyperuricemia without signs of inflammatory arthritis and tophaceous disease Category: Medical Plan: Patient's serum uric acid is still elevated at 7.5 but she remains asymptomatic with no acute joint flares Reinforced low purine diet Will continue to monitor her serum levels regularly (13) GERD (gastroesophageal reflux disease): Code(s): K21.9 - Gastro-esophageal reflux disease without esophagitis Category: Medical Qualifiers: Esophagitis presence: without esophagitis Qualified Code(s): K21.9 - Gastro-esophageal reflux disease without esophagitis Plan: Dietary restrictions reinforced She was on Pantoprazole 40 mg QD previously but states that she has not had to take Rx for a while now as her symptoms were well-controlled but as she reports experiencing recurrent heartburns again recently, will have her go back on Pantoprazole 40 mg QD at this time - Rx sent to pharmacy She is advised again that if her symptoms persist despite Rx and dietary restrictions, will need to consider referring her to GI for further evaluation and possible EGD (14) Obesity (BMI 30-39.9): Code(s): E66.9 - Obesity, unspecified Category: Medical Plan: Reinforced diet/exercise as tolerated/lose weight Plan Follow up in 4 months Orders: Orders Complete Blood Count Auto Diff 4 Months D64.9 - Anemia, unspecified Vitamin D 25-OH Total 4 Months E55.9 - Vitamin D deficiency, unspecified Uric Acid 4 Months E79.0 - Hyperuricemia without signs of inflammatory arthritis and tophaceous disease XR foot LT min 3V 11/13/24 M79.672 - Pain in left foot US abdomen complete 04/21/25 R10.12 - Left upper quadrant pain Comprehensive [place]. Panel Fast 4 Months E78.00 - Pure hypercholesterolemia, unspecified Lipid Panel 4 Months E78.00 - Pure hypercholesterolemia, unspecified UA CC w/rflx Micro + Cult 4 Months R30.0 - Dysuria
--- OUTSIDE RECORDS SUMMARY | 2024-11-10 16:35 | XMS_ITS | Encounter Summary ---
Author Organization [facility] Address [address] [place] [address] Care Team Providers Care Station Baggage Porter Name Role Phone Clement Trent Primary Care Provider [phone] Vinny Avila MD Primary Care Provider [phone] Encounter Details Date Type Department Care Team (Late st Contact Info) Description 01/22/2019 Orders Only [facility] Pre-Admission Testing [address] [place] [address] Ann Christina NP Social History Tobacco Use [...] of this encounter Procedures * Due to [place] state law, this organization might not be [...] in this encounter Results * Due to [place] state law, this organization might not be sharing negative HIV tests. * MRSA CULTURE SCREEN, NASAL ONLY (01/22/2019 11:38 AM EDT) Methicillin Resistant Staphylococcus Aureus Screen SEE NOTE [facility] Comment: ??MRSA CULTURE SCREEN ??MICRO NUMBER: ?[id number] ??TEST STATUS: ? FINAL ??SPECIMEN SOURCE: ?? NOT GIVEN ??SPECIMEN QUALITY: ??ADEQUATE ??RESULT: ?No methicillin resistant Staphylococcus aureus ? (MRSA) isolated. 01/22/2019 11:3 8 AM EDT 01/22/2019 9:19 PM EDT Narrative Resulting Agency Comment [id number] us Ann Christina CIRCULATING NURSE LABORATORY Final Res ult [facility] [address] [place] [address] * EKG-TO BE READ & BILLED BY [...] 25-OH, Total 26(L) 30 - 100 ng/mL [facility] Comment: Vitamin D Status ? 25-OH Vitamin D: Deficiency: ?<20 ng/mL Insufficiency: ? 20 - 29 ng/mL Optimal: ? > or = 30 ng/mL For 25-OH Vitamin D testing on patients on D2-supplementation and patients for whom quantitation of D2 and D3 fractions is required, the QuestAssureD(TM) 25-OH VIT D, (D2,D3), LC/MS/MS is recommended: order code 09985 (patients >2yrs). For more information on this test, go to: http://education.[employer]/faq/HXI566 (This link is being provided for informational/educational purposes only.) 01/22/2019 10:3 6 AM EDT 01/22/2019 9:38 PM EDT Narrative Resulting Agency Comment [id number] us Ann Christina CIRCULATING NURSE LABORATORY Final Res ult [facility] [address] [place] [address] * (ABNORMAL) CBC INCLUDES DIFFERENTIAL AND PLATELET COUNT (01/22/2019 10:36 AM EDT) Pathologist [facility] WBC 6.6 3.8 - 10.8 Thousand/u L [...] 9:38 PM EDT Narrative Resulting Agency Comment [id number] us Ann Sanford CIRCULATING NURSE LAB SAME DAY RESULT Final Result [facility] [address] [place] [address] * (ABNORMAL) BASIC METABOLIC PANEL WITH (GFR) (01/22/2019 10:36 AM EDT) Pathologist [facility] Glucose 88 65 - 99 mg/dL [facility] Comment:Fasting reference in terval Urea Nitrogen Blood (BUN) 17 7 - 25 mg/dL [facility] Creatinine 0.76 0.50 - 1.05 mg/dL [facility] Comment: For patients >49 years of age, the reference limit for Creatinine is approximately 13% higher for people identified as -[place]. EGFR 89 > OR = 60 mL/min/1 [...] needs for GFR calculation. Resulting Agency Comment [id number] Ann Christina CIRCULATING NURSE LABORATORY Final Res ult [facility] [address] [place] [address] documented in this encounter Visit Diagnoses Diagnosis Preop examination Preoperative examination, unspecified Low back pain of over 3 months duration Lumbosacral stenosis with neurogenic claudication Spinal stenosis, lumbar region, with neurogenic claudication Essential hypertension Latex allergy Allergy to latex Low vitamin D level Mixed hyperlipidemia documented in this encounter Care Teams Station Baggage Porter Relationship Specialty Start Date End Date Clement Trent [facility]. [address] [place] [phone] PCP - General Internal Medicine 10/24/18 06/04/23 Vinny Avila MD [address] [place] [address] PCP - General Internal Medicine 06/05/23 documented as of this encounter
--- OUTSIDE RECORDS SUMMARY | 2024-11-10 16:36 | XMS_ITS | Encounter Summary ---
Author Organization [facility] Address [address] [place] [address] Care Team Providers Care Adding Machine Servicer Name Role Phone Miley Clement J Primary Care Provider Vinny Avila MD Primary Care Provider [phone] Encounter Details Date Type Department Care Team (Late st Contact Info) Description 02/21/2019 Orders Only [facility] [address] [phone] Nixon Good MD [address] [place] [id number] Social History Tobacco Use Types Packs/Day Years [...] of this encounter Results * Due to [place] state law, this organization might not be [...] unspecified documented in this encounter Care Teams Adding Machine Servicer Relationship Specialty Start Date End Date Clement Trent [facility]. [address] [place] [phone] PCP - General Internal Medicine 10/24/18 06/04/23 Vinny Avila MD [address] [place] [address] PCP - General Internal Medicine 06/05/23 documented as of this encounter
--- OUTSIDE RECORDS SUMMARY | 2024-11-10 16:36 | XMS_ITS ---
Author Organization [facility] Address [address] [place] [address] Care Team Providers Care Wild Oyster Harvester Name Role Phone Austin ZHANG, [place] Primary Care Provider Unava ilHernando Camarillo Unavailable [phone] REASON FOR VISIT screening Problems Problem Type SNOMED Code ICD Code Onset Dates Problem Status W/U Status Risk Notes Problem Diverticular disease of colon (129506604) Diverticulosis of large intestine without perforation or abscess without bleeding (K57.30) Active confirmed Encounters Encounter Location Date Provider Diagnosis [facility] [place] [address] [place], [place] [id number] 04/09/2024 Hernando Nguyễn Colon cancer scree justice [...] * BILLY NIETODOB: 5 (59 yo F)Acc No.[id number]:04/09/2024 COLON WITH MAC Patient:?BILLY NIETO Provider:?Hernando Nguyễn MD :1965???Age:58 Y???Sex:Female D ate:04/09/2024 Address: [address] [facility], [facility] Pcp:Vinny Avila MD Subjective: * Chief Complaints: * ???1. Screening. * Medical History:? Objective: * Vitals:? Assessment: * Assessment: 1.?Colon cancer screening - Z12.11 (Primary)???2.?Colon polyps - K63.5???3.?Diverticulosis of large intestine without perforation or abscess without bleeding - K57.30???4.?Other hemorrhoids - K64.8??? Plan: * Treatment: * Procedure Codes:?13523 COLON OSCOPY AND BIOPSY, Modifiers: 33 * * The named appointment provid er may or may not be the originator of this progress note, and it is not deemed complete until electronically signed by the appointment provider. Sign off status: Pending * Provider:?Hernando Nguyễn MD Date:? 024 Generated for Ramona clarke/Megha/eTransmitting on:?11/10/2024 04:36 PM EDT
--- OUTSIDE RECORDS SUMMARY | 2024-11-10 16:36 | XMS_ITS | Continuity of Care Document ---
Author Organization [facility] Address [address] [place] [address] Care Team Providers Care [facility] Name Role Phone Vinny Avila MD Primary Care Provider [phone] Encounters Date Type Department Care Team Description 05/05/2024 3:20 PM EDT Office Visit [facility] Orthopedic Surgery [address] [place] [phone] Nixon Good MD Numbness and tingling in left hand (Primary Dx); Chronic neck pain; Foraminal stenosis of cervical region; Left wrist pain 04/15/2024 7:45 PM EDT Radiology [facility]. Magnetic Resonance Imaging [address] [place] [address] Radiculitis; Chronic neck pain; Numbness and tingling in left hand 03/21/2024 Orders Only [facility] Orth[facility] Surgery Suite [facility] [address] [facility] [address] [place] [address] Nixon Good MD 03/20/2024 Telephone [facility] [address] [facility] [address] [place] [address] Nixon Good MD Imaging Study; Referrals 02/18/2024 Orders Only [facility] [address] [address] Nixon Good MD 02/18/2024 Telephone [facility] [address] [facility] [address] [place] [address] Nixon Good MD Physical Therapy 09/10/2023 3:30 PM EST Minor Procedure/Test [facility] Neurology [address] [facility] [address] [place] [address] Kika Ferguson MD Left arm pain (Primary Dx); Numbness and tingling of left thumb 06/05/2023 11:00 AM EST Radiology [facility] Xray [address] [facility] [address] [place] [address] Cervical spine pain 06/05/2023 11:40 AM EST Consult (Initial) [facility] [address] [facility] [address] [place] [address] Nixon Good MD Radiculitis (Primary Dx); Chronic neck pain; Numbness and tingling in left hand 06/04/2023 Orders Only [facility] [address] [facility] [address] [place] [address] Nixon Good MD 06/30/2020 Travel 06/30/2020 10:15 PM EST Radiology [facility]. [facility] Resonance Imaging [address] [place] [address] Right hip pain 06/23/2020 Travel 11/04/2019 8:00 AM EDT Office Visit [facility] [address] [facility] [address] [place] [address] Nixon Good MD Low back pain of over 3 months duration (Primary Dx); Shoulder pain, unspecified chronicity, unspecified laterality 04/21/2019 7:35 AM EDT Radiology [facility] [address] [facility] [address] [place] [address] Low back pain of over 3 months duration 04/21/2019 8:00 AM EDT Office Visit [facility] [address] [facility] [address] [place] [address] Nixon Good MD Low back pain of over 3 months duration (Primary Dx); Facet arthritis of lumbar region 03/21/2019 Telephone [facility] [address] [facility] [address] [place] [address] Nixon Good MD Letter/form Request 02/24/2019 9:50 AM EDT Radiology [facility] [address] [facility] [address] [place] [address] Low back pain, unspecified back pain laterality, unspecified chronicity, with sciatica presence unspecified 02/24/2019 9:30 AM EDT Office Visit [facility] [address] [facility] [address] [place] [address] Nixon Good MD Low back pain of over 3 months duration (Primary Dx) 02/21/2019 Orders Only [facility] [address] [facility] [address] [place] [address] Nixon Good MD 02/12/2019 Telephone [facility] [address] [facility] [address] [place] [address] Nixon Good MD [employer] (rash) 02/11/2019 Orders Only [facility] [address] [facility] [address] [place] [address] Nixon Good MD Medications 02/06/2019 Minor Procedure/Test NON [facility] [address] [place] [address] Nixon Good MD 02/06/2019 Hospital/Inpatie nt NON [facility] [address] [place] [address] Nixon Good MD 01/30/2019 Orders Only NON [facility] [address] [place] [address] Nixon Good MD 01/22/2019 Orders Only [facility] Cardiology [address] [facility] [address] [place] [address] Santos Cast DO 01/22/2019 Orders Only [facility] Pre-Admission Testing 123 [facility] [address] [place] [address] Ann Christina NP 01/22/2019 8:30 AM EDT Office Visit [facility] Pre-Admission Testing [address] [place] [address] [address] [place] [address] Ann Christina NP Preop examination (Primary Dx); Low back pain of over 3 months duration; Lumbosacral stenosis with neurogenic claudication (HCC); Essential hypertension; Latex allergy; Low vitamin D level; Mixed hyperlipidemia 12/09/2018 8:10 AM EDT Office Visit [facility] [address] [place] [address] Nixon Good MD Low back pain of over 3 months duration (Primary Dx); Facet arthritis of lumbar region; Foraminal stenosis of lumbar region; Lumbosacral stenosis with neurogenic claudication (HCC) 12/03/2018 7:45 AM EDT Radiology [facility]. [facility] Imaging [address] [place] [address] Chronic bilateral low back pain with bilateral sciatica 11/12/2018 9:05 AM EDT Radiology [facility] [address] [address] Low back pain of over 3 months duration; Facet arthritis of lumbar region; Foraminal stenosis of lumbar region; Chronic bilateral low back pain with bilateral sciatica 11/12/2018 8:20 AM EDT Consult (Initial) [facility] [address] [address] Nixon Good MD Low back pain of [...] 11 Refills, Maintenance, 02/15/24 11:33:00 EDT, [facility], 165, cm, 11/14/23 8:48:00 EDT, [...] 12/17/2020 Social History Smoking Status as of 11/10/2024 Tobacco Use Types Packs/Day Years Used Date [...] Not on file Procedures * Due to [place] state law, this organization might not be [...] MRI SPINE 09/20/2017 Results * Due to [place] state law, this organization might not be sharing negative HIV tests. * MRI CERVICAL SPINE W/O CONTRAST (04/15/2024 8:28 PM EDT) Anatomical Region Laterality Modality Spine Magnetic Resonan ce Narrative 04/16/2024 1:45 PM EDT Patient History: Radiculitis CONTRAST: MR cervical spine without gadolinium Comparison: CR/LA - XRAY SPINE, CERVICAL; 3 VIEWS OR [...] There is mild spinal cord compression with vcjryntc-ne-heerit spinal canal narrowing. ??No altered spinal cord [...] CONTRAST: MR cervical spine without gadolinium Comparison: CR/LA - XRAY SPINE, CERVICAL; 3 VIEWS OR [...] cord. There is mild spinal cord compression swddowdlmirg-fa-isprxz spinal canal narrowing. No altered spinal cord [...] MAX (02/07/2019 9:19 AM EDT) RADIOLOGY REPORT [facility] Department of Radiology [address] [place] [address], [place], [address] Name: BILLY MICHELE : 63 Date of Service: 02/07/19 1018 Acct Number: [id number] Order Number: ??[id number] ?Location: [facility] Report Number: [id number] ?Service: [facility] [place]/ Requesting Physician: Sean Goodwin Category: RADIOLOGY ??[facility] Exam: LUMBAR SPINE 2 OR 3 VIEWS [...] and L3. No fracture or subluxation. 2. ??Gmig-ex-yaorole e multilevel degenerative changes of lower lumbar spine. Date/Time of Dictation: 02/07/19 1143 Strength And Conditioning Coach (if applicable): Lubna Harding Approved By Attending Radiologist: Catherine Romano 02/07/19 1143 [facility] Department of Radiology [address] [place] [address], [address] ? [phone] ? [facility] RAD Anatomical Region Laterality Modality Other 02/07/2019 9:19 AM EDT Narrative 02/07/2019 11:43 AM EDT Reason for Study/History: Department of Radiology TEST(S) PROCESSED BY [facility] XRAY us Unknown Provider [facility] IMAGING-[facility] Final Resul t * (ABNORMAL) CBC W/O DIFFERENTIAL (02/07/2019 5:41 AM EDT) WHITE BLOOD COUNT 11.8(H) 3.9 - 11.0 x1000/uL [facility] RBC 3.89 3.70 - 5.10 mil/ul [facility] Hemoglobin 10.4(L) 11.5 - 15.0 g/dL [facility] HCT (HEMATOCRIT) 32.3(L) 34.0 - 44.0 % [facility] MCV 83 80 - 100 fL [facility] MCH 27 27 - 33 pg [facility] MCHC 32 31 - 36 g/dL [facility] RDW 14.1 11.4 - 14.4 % [facility] PLATELETS 294 150 - 450 x1000/uL [facility] 02/07/2019 5:41 AM EDT 02/07/2019 5:41 AM EDT us Nixon Good MD LABORATORY Final Result [facility] [address] [place] [address] * (ABNORMAL) BASIC METABOLIC PANEL (02/07/2019 5:41 AM EDT) Glucose 106(H) 65 - 99 mg/dL [facility] BUN 13 5 - 26 mg/dL [facility] CREATININE 0.77 0.5 - 1.5 mg/dL [facility] BUN/Creatinine Ratio 17 8 - 27 [facility] GLOM FILT RATE, EST 87.5 >59 mL/min [facility] IF -JORDON N 101.5 >59 mL/min [facility] SODIUM 141 134 - 144 mEq/L [facility] POTASSIUM 3.6 3.6 - 5.6 mEq/L [facility] CHLORIDE 106 96 - 109 mEq/L [facility] CARBON DIOXIDE 28 20 - 32 mEq/L [facility] ANION GAP 7.0(L) 8 - 15 [facility] CALCIUM 8.7 8.3 - 10.0 mg/dL [facility] 02/07/2019 5:41 AM EDT 02/07/2019 5:41 AM EDT us Nixon Good MD LABORATORY Final Result [facility] [address] [place] [address] * OR IMAGING C-ARM (02/06/2019 9:34 AM EDT) RADIOLOGY REPORT [facility] Department of Radiology [address] [place], [address] Name: BILLY MICHELE : 63 Date of Service: 02/06/19929 Acct Number: [id number] Order Number: ??[id number] [facility] Report Number: [id number] ?Service: [facility]/ Requesting Physician: Nixon Good MD ([facility]) Category: [...] for details. Date/Time of Dictation: 02/06/19 1219 Strength And Conditioning Coach (if applicable): Isaiah Echevarria Approved By Attending Radiologist: Catherine Romano 02/06/19 1219 [facility] Department of Radiology [address] [place] [address], [address] ? [phone] ? [facility] Anatomical Region Laterality Modality Other 02/06/2019 9:34 AM EDT Narrative 02/06/2019 12:19 PM EDT Reason for Study/History: Department of Radiology TEST(S) PROCESSED BY [facility] Nixon Good MD IMAGING-[facility] Final Result * UNSPECIFIED MAJOR PROCEDURE (02/06/2019) [...] L2-L3 microdiskectomy. ATTENDING SURGEON: Dr. Nixon Good. EARLY CHILDHOOD DIRECTOR: Sean Goodwin PA-C. ANESTHESIA: GETA and 40 mL of 0.25% Marcaine with epinephrine. ESTIMATED BLOOD LOSS: 150 mL. COMPLICATIONS: None. FINDINGS: Small disk herniation, left L2-L3 and spinal stenosis L2-L3, L3-L4. CLINICAL HISTORY: Billy Micheel is a 53-year-old female who comes in [...] was seen in the holding area at [facility]. The STOP sheet was completed by me [...] was brought to Operating Room 12 at [facility]. Successful general endotracheal anesthesia was induced by [...] 10:32 A TT: 10:48 A Doc #: [id number] cc: Nixon Good MD Nixon Good MD PROCEDURES Final Result * BLOOD TYPE AND ANTIBODY SCREEN (01/30/2019 8:00 AM EDT) BLOOD GROUP ABO A [facility] RH-(D) Positive [facility] ANTIBODY SCREEN Negative Negative [facility] 01/30/2019 8:00 AM EDT 01/30/2019 8:00 AM EDT Nixon Good MD LABORATORY Final Result Performing Organization Address City/State/[facility] Co de Phone Number [facility] [address] [place] [address] * MRSA CULTURE SCREEN, NASAL ONLY (01/22/2019 11:38 AM EDT) Pathologist [facility] Methicillin Resistant Staphylococcus Aureus Screen SEE NOTE [facility] Comment: ??MRSA CULTURE SCREEN ??MICRO NUMBER: ?[id number] ??TEST STATUS: ? FINAL ??SPECIMEN SOURCE: ?? NOT GIVEN ??SPECIMEN QUALITY: ??ADEQUATE ??RESULT: ?No methicillin resistant Staphylococcus aureus ? (MRSA) isolated. 01/22/2019 11:3 8 AM EDT 01/22/2019 9:19 PM EDT Narrative Resulting Agency Comment [id number] Ann Christina BPO SPECIALIST LABORATORY Final Res ult [facility] [address] [place] [address] * EKG-TO BE READ & BILLED BY ADULT OR PEDIATRIC CARDIOLOGY (01/22/2019 10:41 AM EDT) Pathologist [facility] VENTRICULAR RATE 79 BPM MUS E EKG [...] EDT 01/23/2019 12:06 AM EDT Ann Christina BPO SPECIALIST CARDIOVASCULAR-WITH INBSK T RTG Final Result [facility] * (ABNORMAL) CBC INCLUDES DIFFERENTIAL AND PLATELET COUNT (01/22/2019 10:36 AM EDT) Pathologist [facility] WBC 6.6 3.8 - 10.8 Thousand/u L [...] 9:38 PM EDT Narrative Resulting Agency Comment [id number] Ann Christina BPO SPECIALIST LAB SAME DAY RESULT Final Result Performing Organization Address [facility] de Phone Number [facility] [address] [place] [address] * (ABNORMAL) VITAMIN D, 25-HYDROXY, TOTAL, IMMUNOASSAY (01/22/2019 10:36 AM EDT) Vitamin D, 25-OH, Total 26(L) 30 - 100 ng/mL [facility] Comment: Vitamin D Status ? 25-OH Vitamin D: Deficiency: ?<20 ng/mL Insufficiency: ? 20 - 29 ng/mL Optimal: ? > or = 30 ng/mL For 25-OH Vitamin D testing on patients on D2-supplementation and patients for whom quantitation of D2 and D3 fractions is required, the QuestAssureD(TM) 25-OH VIT D, (D2,D3), LC/MS/MS is recommended: order code 10115 (patients >2yrs). For more information on this test, go to: http://education.[employer] Wi Max.Glipho/faq/YQV990 (This link is being provided for informational/educational purposes only.) 01/22/2019 10:3 6 AM EDT 01/22/2019 9:38 PM EDT Narrative Resulting Agency Comment [id number] Ann Christina BPO SPECIALIST LABORATORY Final Res ult Performing Organization Address City/[facility]/ZIP Co de Phone Number [facility] [address] [place] [address] * (ABNORMAL) BASIC METABOLIC PANEL WITH (GFR) (01/22/2019 10:36 AM EDT) Glucose 88 65 - 99 mg/dL [facility] Comment:Fasting reference in terval Urea Nitrogen Blood (BUN) 17 7 - 25 mg/dL [facility] Creatinine 0.76 0.50 - 1.05 mg/dL [facility] Comment: For patients >49 years of age, the reference limit for Creatinine is approximately 13% higher for people identified as -Singaporean. EGFR 89 > OR = 60 mL/min/1 [...] needs for GFR calculation. Resulting Agency Comment [id number] us Ann Christina BPO SPECIALIST LABORATORY Final Res ult [facility] [address] [place] [address] * MRI LUMBAR SPINE W/O CONTRAST FC [...] Pain in joint, forearm 05/05/2024 Care Teams [facility] Relationship Specialty Start Date End Date Vinny Avila MD [address] [place] [address] PCP - General Internal Medicine 06/05/23
--- OUTSIDE RECORDS SUMMARY | 2024-11-10 16:36 | XMS_ITS ---
Author Organization [facility] Address [address] [facility] [address] [place] [address] Care Team Providers Care Chemical Process Analyst Name Role Phone Austin ZHANG, [place] Primary Care Provider Unava ilable Hernando Nguyễn [phone] REASON FOR VISIT cardiac clearance Encounters Encounter Location Date Provider Diagnosis [facility] [address] [place] [address] 03/31/2024 Hernando Nguyễn Plan Of Treatment No Information Progress Notes * KENNETH NIETOLEONCIODOB: 5 (58 yo F)Acc No.[id number]:03/31/2024 Patient:?BILLY NIETO :1965???Age:58 Y???Sex:Female Address:[address] [place], [address] * true * Date:? Generated for Montyi tricia/Megha/eTransmitting on:?11/10/2024 04:35 PM EDT
--- OUTSIDE RECORDS SUMMARY | 2024-11-10 16:36 | XMS_ITS | Encounter Summary ---
Author Organization [facility] Address [address] [place] [address] Care Team Providers Care Para Machine Operator Name Role Phone Vinny Avila MD Primary Care Provider [phone] Reason for Visit * Reason Comments Physical Therapy Encounter Details Date Type Department Care Team ([facility] st Contact Info) Description 02/18/2024 Telephone [facility] Orthopedic Surgery [address] [address] Nixon Good MD [address] [place] [address] Physical Therapy Social History Tobacco Use Types [...] a physical therapy order is faxed to [phone]. documented in this encounter Plan of Treatment Not on file documented as of this encounter Visit Diagnoses Not on filedocumented in this encounter Care Teams Para Machine Operator Relationship Specialty Start Date End Date Vinny Avila MD [address] [place] [address] PCP - General Internal Medicine 06/05/23 documented as of this encounter
--- OUTSIDE RECORDS SUMMARY | 2024-11-10 16:36 | XMS_ITS | Patient Health Record ---
Author Organization [facility] Address [address] [place] [address] Care Team Providers Care Associate Professor Of Medicine Name Role Phone Austin ZHANG, Raymond Primary Care Provider Hernando [facility] [phone] Allergies Allergen (clinical drug ingredient) Drug/Non Drug Allergy documented on EMR Reaction Allergy Type Onset Date Status erythromycin Erythromycin Unknown Drug Allergy A ctive Latex Latex Unknown Allergy Active meperidine Demerol Unknown Drug Allergy Active Results Component Value Reference Range Notes Pathology (Not yet reviewed by provider) Interpretation: Performing Lab:[facility], [address] [place] [phone] Notes/Report: Name: Lorelei Nieto Age/Sex: 58/F : 1965 Unit#: [id number] Attend Dr: Hernando Nguyễn MD Re04/09/24 Status : [facility] Location: [facility] Disch: SPEC : [id number] REC STATUS: SANDRA CHRISTIANSON NUM: [id number] DIETER: 04/09/24-[address] [facility] [address]: Hernando Nguyễn MD ENTERED: 04/09/24-12 16 [...] microscopic examination, 1 piece in cassette [facility] Copies To: Vinny Avila MD [facility] [place] Primary Care,[place] [address] [place], [place] [id number] Hernando Nguyễn MD [facility] [address] [place] [address] Signed (si gnature on file) Yamileth Friend [...] Problem Screening for malignant neoplasm of colon (500090612) Encounter for screening for malignant neoplasm of colon (Z12.11) Active confirmed Problem Pre-procedure evaluation check (388174156) Encounter for other preprocedural examination (Z01.818) Active confirmed Problem Diverticular disease of colon (357256403) Diverticulosis of large intestine without perforation or abscess without bleeding (K57.30) Active confirmed Vital Signs Temperature 98.6 degrees Fahrenheit 01/23/2024 Blood pressure diastolic 00 mm Hg 01/23/2024 Height 5 ft 5 in in 01/23/2024 Blood pressure systolic 000 mm Hg 01/23/2024 Weight 210 lbs 01/23/2024 BMI 34.94 kg/m2 01/23/2024 Encounters Encounter Location Date Provider Diagnosis [facility] [place] Outpatient [address] [place], [place] [id number] 04/09/2024 Hernando Nguyễn Colon cancer screeni ng Z12.11 ; Colon polyps K63.5 ; Diverticulosis of large intestine without perforation or abscess without bleeding K57.30 and Other hemorrhoids K64.8 [facility] [address] [place] [address] 01/23/2024 Hernando Nguyễn Encounter for screen ing for malignant neoplasm of colon Z12.11 and Encounter for other preprocedural examination Z01.818 [facility] [address] [place] [address] 03/31/2024 Hernando Nguyễn Assessments Encounter Date Diagnosis [...] for the procedure. She did see her craps dealer approximately 2 months ago and we shall [...] for the procedure. She did see her craps dealer approximately 2 months ago and we shall [...] Insured Coverage Start Date Coverage End Date [facility] [employer] ([employer]) [address] [place] [id number] LUCEROJalilLORELEI Self - patient is the insured Medical (General) History Medical History History ICD Code HTN Hyperlipdiemia Negative screenng colonoscopy age 49 at [facility] with [address] 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 Leal-at [facility] Surgical History Surgery Date(Month/Year) Right knee 1984 Bilateral hip replacements 2020 Back surgery 2019 2 C-sections Partial hysterectomy
== END 2024-11-10 17:35 | disposition home or self-care (01) ==
LOC: HO.HMCH 16:33
PROVIDERS: PCP Internal Medicine; Visit Provider Internal Medicine
DX: I25.119 Atherosclerotic heart disease of native coronary artery with unspecified angina pectoris (principal); E78.00 Pure hypercholesterolemia, unspecified; E66.9 Obesity, unspecified; Z68.36 Body mass index [BMI] 36.0-36.9, adult; I10 Essential (primary) hypertension; D72.820 Lymphocytosis (symptomatic); R76.8 Other specified abnormal immunological findings in serum; E55.9 Vitamin D deficiency, unspecified; R10.12 Left upper quadrant pain; M19.91 Primary osteoarthritis, unspecified site; M48.061 Spinal stenosis, lumbar region without neurogenic claudication; M79.89 Other specified soft tissue disorders; M47.812 Spondylosis without myelopathy or radiculopathy, cervical region; M79.605 Pain in left leg; E79.0 Hyperuricemia without signs of inflammatory arthritis and tophaceous disease; K21.9 Gastro-esophageal reflux disease without esophagitis

== ENCOUNTER → 2024-11-10 16:33 | Outpatient (BNVA) | payer OTHER, SELFPAY | PROVIDERS: PCP Internal Medicine; Visit Provider Internal Medicine | DX: I25.119 Atherosclerotic heart disease of native coronary artery with unspecified angina pectoris (principal); E78.00 Pure hypercholesterolemia, unspecified; I10 Essential (primary) hypertension; D72.820 Lymphocytosis (symptomatic); R76.8 Other specified abnormal immunological findings in serum; E55.9 Vitamin D deficiency, unspecified; R10.12 Left upper quadrant pain; M19.91 Primary osteoarthritis, unspecified site; M48.061 Spinal stenosis, lumbar region without neurogenic claudication; M47.812 Spondylosis without myelopathy or radiculopathy, cervical region; M79.605 Pain in left leg; M79.89 Other specified soft tissue disorders; K21.9 Gastro-esophageal reflux disease without esophagitis; E66.9 Obesity, unspecified; Z68.36 Body mass index [BMI] 36.0-36.9, adult; Z79.82 Long term (current) use of aspirin; Z79.899 Other long term (current) drug therapy | CPT/HCPCS: 96127 ==

== ENCOUNTER 2024-11-13 16:20 | Outpatient (REF) | payer OTHER, SELFPAY ==
--- NOTE | ~2024-11-13 | XR_ITS ---
EXAMINATION: XR FOOT 3 OR MORE VIEWS LEFT HISTORY: M79.672 - Pain in left foot COMPARISON: There are no prior studies available for comparison. FINDINGS: Three views of the left foot are submitted. Osseous mineralization is normal. There is no fracture or dislocation. There is degenerative change of the tibiotalar joint. There is a small plantar calcaneal spur. The soft tissues are unremarkable. XR/XR foot LT min 3V IMPRESSION: Degenerative change of the tibiotalar joint. Small plantar calcaneal spur. Electronically signed by: Hernando Mendoza MD 11/14/2024 03:53 PM EDT
--- OUTSIDE RECORDS SUMMARY | 2024-11-13 18:42 | XMS_ITS | Encounter Summary ---
Author Organization [facility] Address [address] [place] [address] Care Team Providers Care Bag Maker Name Role Phone Vinny Avila MD Primary Care Provider [phone] Reason for Visit * Reason Comments Physical Therapy Encounter Details Date Type Department Care Team ([facility] st Contact Info) Description 02/18/2024 Telephone [facility] Orthopedic Surgery [address] [address] Nixon Good MD [address] [place] [address] Physical Therapy Social History Tobacco Use Types [...] a physical therapy order is faxed to [phone]. documented in this encounter Plan of Treatment Not on file documented as of this encounter Visit Diagnoses Not on filedocumented in this encounter Care Teams Bag Maker Relationship Specialty Start Date End Date Vinny Avila MD [address] [place] [address] PCP - General Internal Medicine 06/05/23 documented as of this encounter
--- OUTSIDE RECORDS SUMMARY | 2024-11-13 18:42 | XMS_ITS | Encounter Summary ---
Author Organization [facility] Address [address] [place] [address] Care Team Providers Care Pattern And Chain Maker Name Role Phone Miley Clement J Primary Care Provider [phone] Vinny Avila MD Primary Care Provider [phone] Encounter Details Date Type Department Care Team (Late st Contact Info) Description 02/21/2019 Orders Only [facility] Orthopedic Surgery [address] [address] Nixon Good MD [address] [place] [address] Social History Tobacco Use Types Packs/Day Years [...] of this encounter Results * Due to [place] [...] unspecified documented in this encounter Care Teams Pattern And Chain Maker Relationship Specialty Start Date End Date Clement Trent [facility]. [address] [place] [phone] PCP - General Internal Medicine 10/24/18 06/04/23 Vinny Avila MD [address] [place] [address] PCP - General Internal Medicine 06/05/23 documented as of this encounter
--- OUTSIDE RECORDS SUMMARY | 2024-11-13 18:42 | XMS_ITS | Continuity of Care Document ---
Author Organization [facility] Address [address] [place] [address] Care Team Providers Care Parts Department Supervisor Name Role Phone Vinny Avila MD Primary Care Provider [phone] Encounters Date Type Department Care Team Description 05/05/2024 3:20 PM EDT Office Visit [facility] Orthopedic Surgery [address] [place] [address] Nixon Good MD Numbness and tingling in left hand (Primary Dx); Chronic neck pain; Foraminal stenosis of cervical region; Left wrist pain 04/15/2024 7:45 PM EDT Radiology [facility]. Magnetic Resonance Imaging [address] [place] [address] Radiculitis; Chronic neck pain; Numbness and tingling in left hand 03/21/2024 Orders Only [facility] Orthopedic Surgery Suite [facility] 123 [facility] [address] [place] [phone] Nixon Good MD 03/20/2024 Telephone [facility] Orthopedic Surgery [address] [facility] [address] [place] [phone] Nixon Good MD Imaging Study; Referrals 02/18/2024 Orders Only [facility] Orthopedic Surgery [address] [address] Nixon Good MD 02/18/2024 Telephone [facility] Orthopedic Surgery [address] [facility] [address] [place] [address] Nixon Good MD Physical Therapy 09/10/2023 3:30 PM EST Minor Procedure/Test [facility] Neurology [address] [facility] [address] [place] [address] Kika Ferguson MD Left arm pain (Primary Dx); Numbness and tingling of left thumb 06/05/2023 11:00 AM EST Radiology [facility] Xray 123 [facility] [address] [place] [address] Cervical spine pain 06/05/2023 11:40 AM EST Consult (Initial) [facility] Orthopedic Surgery [address] [facility] [address] [place] [address] Nixon Good MD Radiculitis (Primary Dx); Chronic neck pain; Numbness and tingling in left hand 06/04/2023 Orders Only [facility] Orthopedic Surgery [address] [facility] [address] [place] [phone] Nixon Good MD 06/30/2020 Travel 06/30/2020 10:15 PM EST Radiology [facility]. Magnetic Resonance Imaging [address] [place] [address] Right hip pain 06/23/2020 Travel 11/04/2019 8:00 AM EDT Office Visit [facility] Orthopedic Surgery [address] [facility] [address] [place] [address] Nixon Good MD Low back pain of over 3 months duration (Primary Dx); Shoulder pain, unspecified chronicity, unspecified laterality 04/21/2019 7:35 AM EDT Radiology [facility] Xray 123 [facility] [address] [place] [address] Low back pain of over 3 months duration 04/21/2019 8:00 AM EDT Office Visit [facility] Orthopedic Surgery [address] [facility] [address] [place] [address] Nixon Good MD Low back pain of over 3 months duration (Primary Dx); Facet arthritis of lumbar region 03/21/2019 Telephone [facility] Orthopedic Surgery [address] [facility] [address] [place] [address] Nixon Good MD Letter/form Request 02/24/2019 9:50 AM EDT Radiology [facility] Xray 123 [facility] [address] [place] [address] Low back pain, unspecified back pain laterality, unspecified chronicity, with sciatica presence unspecified 02/24/2019 9:30 AM EDT Office Visit [facility] Orthopedic Surgery [address] [facility] [address] [place] [address] Nixon Good MD Low back pain of over 3 months duration (Primary Dx) 02/21/2019 Orders Only [facility] Orthopedic Surgery [address] [facility] [address] [place] [address] Nixon Good MD 02/12/2019 Telephone [facility] Orthopedic Surgery [address] 123 [facility] [address] [place] [address] Nixon Good MD [employer] Communication (rash) 02/11/2019 Orders Only [facility] Orthopedic Surgery [address] [facility] [address] [place] [address] Nixon Good MD Medications 02/06/2019 Minor Procedure/Test NON [facility] [address] [place] [address] Nixon oGod MD 02/06/2019 Hospital/Inpatie nt NON [facility] [address] [place] [address] Nixon Good MD 01/30/2019 Orders Only NON [facility] [address] [place] [address] Nixon Good MD 01/22/2019 Orders Only [facility] Cardiology [address] [facility] [address] [place] [address] Santos Cast DO 01/22/2019 Orders Only [facility] Pre-Admission Testing 123 [facility] [address] [place] [address] Ann Christina NP 01/22/2019 8:30 AM EDT Office Visit [facility] Pre-Admission Testing [address] [place] [address] [address] [place] [address] Ann Christina NP Preop examination (Primary Dx); Low back pain of over 3 months duration; Lumbosacral stenosis with neurogenic claudication (HCC); Essential hypertension; Latex allergy; Low vitamin D level; Mixed hyperlipidemia 12/09/2018 8:10 AM EDT Office Visit [facility] Orthopedic Surgery [address] [place] [address] Nixon Good MD Low back pain of over 3 months duration (Primary Dx); Facet arthritis of lumbar region; Foraminal stenosis of lumbar region; Lumbosacral stenosis with neurogenic claudication (HCC) 12/03/2018 7:45 AM EDT Radiology [facility]. Magnetic Resonance Imaging [address] [place] [address] Chronic bilateral low back pain with bilateral sciatica 11/12/2018 9:05 AM EDT Radiology [facility] Xray [address] [address] Low back pain of over 3 months duration; Facet arthritis of lumbar region; Foraminal stenosis of lumbar region; Chronic bilateral low back pain with bilateral sciatica 11/12/2018 8:20 AM EDT Consult (Initial) [facility] Orthopedic Surgery [address] [address] Nixon Good MD Low back pain of [...] mL, 11 Refills, Maintenance, 02/15/24 11:33:00 EDT, [facility], 165, cm, 11/14/23 8:48:00 [...] 12/17/2020 Social History Smoking Status as of 11/13/2024 Tobacco Use Types Packs/Day Years Used Date [...] Not on file Procedures * Due to [place] state law, this organization might not be [...] MRI SPINE 09/20/2017 Results * Due to [place] state law, this organization might not be sharing negative HIV tests. * MRI CERVICAL SPINE W/O CONTRAST (04/15/2024 8:28 PM EDT) Anatomical Region Laterality Modality Spine Magnetic Resonan ce Narrative 04/16/2024 1:45 PM EDT Patient History: Radiculitis CONTRAST: MR cervical spine without gadolinium Comparison: [place] - XRAY SPINE, CERVICAL; 3 VIEWS OR [...] There is mild spinal cord compression with iapnflea-st-tpseih spinal canal narrowing. ??No altered spinal cord [...] CONTRAST: MR cervical spine without gadolinium Comparison: [place] - XRAY SPINE, CERVICAL; 3 VIEWS OR [...] cord. There is mild spinal cord compression scalidwdrrgl-sl-raiixu spinal canal narrowing. No altered spinal cord [...] MAX (02/07/2019 9:19 AM EDT) RADIOLOGY REPORT [facility] Department of Radiology [address] [place] [address], [place], [address] Name: BILLY MICHELE : 63 Date of Service: 02/07/19 1018 Acct Number: [id number] Order Number: ??[id number] ?Location: [facility] Report Number: [id number] ?Service: [facility]/ Requesting Physician: Sean Goodwin Category: RADIOLOGY ??[facility] Exam: LUMBAR SPINE 2 OR [...] and L3. No fracture or subluxation. 2. ??Otat-rd-szqspqe e multilevel degenerative changes of lower lumbar spine. Date/Time of Dictation: 02/07/19 1143 Virtualization Engineer (if applicable): Lubna Harding Approved By Attending Radiologist: Catherine Romano 02/07/19 1143 [facility] Department of Radiology [address] [place] [address], [address] ? [phone] ? [facility] RAD Anatomical Region Laterality Modality Other 02/07/2019 9:19 AM EDT Narrative 02/07/2019 11:43 AM EDT Reason for Study/History: Department of Radiology TEST(S) PROCESSED BY [facility] XRAY us Unknown Provider [facility] IMAGING-[facility] Final Resul t * (ABNORMAL) CBC W/O DIFFERENTIAL (02/07/2019 5:41 AM EDT) WHITE BLOOD COUNT 11.8(H) 3.9 - 11.0 x1000/uL [facility] RBC 3.89 3.70 - 5.10 mil/ul [facility] Hemoglobin 10.4(L) 11.5 - 15.0 g/dL [facility] HCT (HEMATOCRIT) 32.3(L) 34.0 - 44.0 % [facility] MCV 83 80 - 100 fL [facility] MCH 27 27 - 33 pg [facility] MCHC 32 31 - 36 g/dL [facility] RDW 14.1 11.4 - 14.4 % [facility] PLATELETS 294 150 - 450 x1000/uL [facility] 02/07/2019 5:41 AM EDT 02/07/2019 5:41 AM EDT us Nixon Good MD LABORATORY Final Result [facility] [address] [place] [address] * (ABNORMAL) BASIC METABOLIC PANEL (02/07/2019 5:41 AM EDT) Glucose 106(H) 65 - 99 mg/dL [facility] BUN 13 5 - 26 mg/dL [facility] CREATININE 0.77 0.5 - 1.5 mg/dL [facility] BUN/Creatinine Ratio 17 8 - 27 [facility] GLOM FILT RATE, EST 87.5 >59 mL/min [facility] IF -JORDON N 101.5 >59 mL/min [facility] SODIUM 141 134 - 144 mEq/L [facility] POTASSIUM 3.6 3.6 - 5.6 mEq/L [facility] CHLORIDE 106 96 - 109 mEq/L [facility] CARBON DIOXIDE 28 20 - 32 mEq/L [facility] ANION GAP 7.0(L) 8 - 15 [facility] CALCIUM 8.7 8.3 - 10.0 mg/dL [facility] 02/07/2019 5:41 AM EDT 02/07/2019 5:41 AM EDT us Nixon Good MD LABORATORY Final Result [facility] [address] [place] [address] * OR IMAGING C-ARM (02/06/2019 9:34 AM EDT) RADIOLOGY REPORT [facility] Department of Radiology [address] [place], [address] Name: BILLY MICHELE : 63 Date of Service: 02/06/19929 Acct Number: [id number] Order Number: ??[id number] [facility] Report Number: [id number] ?Service: [facility]/ Requesting Physician: Nixon Good MD ([facility]) Category: [...] for details. Date/Time of Dictation: 02/06/19 1219 Virtualization Engineer (if applicable): Isaiah Echevarria Approved By Attending Radiologist: Catherine Romano 02/06/19 1219 [facility] Department of Radiology [address] [place] [address], [address] ? [phone] ? [facility] Anatomical Region Laterality Modality Other 02/06/2019 9:34 AM EDT Narrative 02/06/2019 12:19 PM EDT Reason for Study/History: Department of Radiology TEST(S) PROCESSED BY [facility] XRAY Nixon Good MD IMAGING-[facility] Final Result * UNSPECIFIED MAJOR [...] L2-L3 microdiskectomy. ATTENDING SURGEON: Dr. Nixon Good. BEAD MACHINE OPERATOR: Sean Goodwin PA-C. ANESTHESIA: GETA and 40 [...] was seen in the holding area at [facility]. The STOP sheet was completed by [...] was brought to Operating Room 12 at [facility]. Successful general endotracheal anesthesia was induced [...] 10:32 A TT: 10:48 A Doc #: [id number] cc: Nixon Good MD Nixon Good MD PROCEDURES Final Result * BLOOD TYPE AND ANTIBODY SCREEN (01/30/2019 8:00 AM EDT) BLOOD GROUP ABO A [facility] RH-(D) Positive [facility] ANTIBODY SCREEN Negative Negative [facility] 01/30/2019 8:00 AM EDT 01/30/2019 8:00 AM EDT Nixon Good MD LABORATORY Final Result Performing Organization Address City/State/[facility] Co de Phone Number [facility] [address] [place] [address] * MRSA CULTURE SCREEN, NASAL ONLY (01/22/2019 11:38 AM EDT) Pathologist [facility] Methicillin Resistant Staphylococcus Aureus Screen SEE NOTE [facility] Comment: ??MRSA CULTURE SCREEN ??MICRO NUMBER: ?[id number] ??TEST STATUS: ? FINAL ??SPECIMEN SOURCE: ?? NOT GIVEN ??SPECIMEN QUALITY: ??ADEQUATE ??RESULT: ?No methicillin resistant Staphylococcus aureus ? (MRSA) isolated. 01/22/2019 11:3 8 AM EDT 01/22/2019 9:19 PM EDT Narrative Resulting Agency Comment [id number] us Ann Christina CIVIL ENGINEERING DIRECTOR LABORATORY Final Res ult [facility] [address] [place] [address] * EKG-TO BE READ & BILLED BY ADULT OR PEDIATRIC CARDIOLOGY (01/22/2019 10:41 AM EDT) Pathologist [facility] VENTRICULAR RATE 79 BPM MUS E EKG [...] EDT 01/23/2019 12:06 AM EDT Ann Christina CIVIL ENGINEERING DIRECTOR CARDIOVASCULAR-WITH INBSK T RTG Final Result [facility] * (ABNORMAL) CBC INCLUDES DIFFERENTIAL AND PLATELET COUNT (01/22/2019 10:36 AM EDT) Pathologist [facility] WBC 6.6 3.8 - 10.8 Thousand/u L [...] 9:38 PM EDT Narrative Resulting Agency Comment [id number] Ann Christina CIVIL ENGINEERING DIRECTOR LAB SAME DAY RESULT Final Result Performing Organization Address [facility] de Phone Number [facility] [address] [place] [address] * (ABNORMAL) VITAMIN D, 25-HYDROXY, TOTAL, IMMUNOASSAY (01/22/2019 10:36 AM EDT) Vitamin D, 25-OH, Total 26(L) 30 - 100 ng/mL [facility] Comment: Vitamin D Status ? 25-OH Vitamin D: Deficiency: ?<20 ng/mL Insufficiency: ? 20 - 29 ng/mL Optimal: ? > or = 30 ng/mL For 25-OH Vitamin D testing on patients on D2-supplementation and patients for whom quantitation of D2 and D3 fractions is required, the QuestAssureD(TM) 25-OH VIT D, (D2,D3), LC/MS/MS is recommended: order code 05730 (patients >2yrs). For more information on this test, go to: http://education.ProPerforma.Dashbell/faq/GFL151 (This link is being provided for informational/educational purposes only.) 01/22/2019 10:3 6 AM EDT 01/22/2019 9:38 PM EDT Narrative Resulting Agency Comment [id number] Ann Christina CIVIL ENGINEERING DIRECTOR LABORATORY Final Res ult Performing Organization Address City/[facility]/ZIP Co de Phone Number [facility] [address] [place] [address] * (ABNORMAL) BASIC METABOLIC PANEL WITH (GFR) (01/22/2019 10:36 AM EDT) Glucose 88 65 - 99 mg/dL [facility] Comment:Fasting reference in terval Urea Nitrogen Blood (BUN) 17 7 - 25 mg/dL [facility] Creatinine 0.76 0.50 - 1.05 mg/dL [facility] Comment: For patients >49 years of age, the reference limit for Creatinine is approximately 13% higher for people identified as -Swiss. EGFR 89 > OR = 60 mL/min/1 [...] needs for GFR calculation. Resulting Agency Comment [id number] us Ann Christina CIVIL ENGINEERING DIRECTOR LABORATORY Final Res ult [facility] [address] [place] [address] * MRI LUMBAR SPINE W/O CONTRAST FC [...] Pain in joint, forearm 05/05/2024 Care Teams Parts Department Supervisor Relationship Specialty Start Date End Date Vinny Avila MD [address] [place] [address] PCP - General Internal Medicine 06/05/23
--- OUTSIDE RECORDS SUMMARY | 2024-11-13 18:42 | XMS_ITS | Encounter Summary ---
Author Organization [facility] Address [address] [place] [address] Care Team Providers Care Clinical Exercise Specialist Name Role Phone Clement Trent Primary Care Provider [phone] Vinny Avila MD Primary Care Provider [phone] Encounter Details Date Type Department Care Team (Late st Contact Info) Description 01/22/2019 Orders Only [facility] Pre-Admission Testing 123 [facility] [address] [place] [address] Ann Christina NP Social History Tobacco Use [...] of this encounter Procedures * Due to [place] state law, this organization might not be [...] in this encounter Results * Due to [place] state law, this organization might not be sharing negative HIV tests. * MRSA CULTURE SCREEN, NASAL ONLY (01/22/2019 11:38 AM EDT) Methicillin Resistant Staphylococcus Aureus Screen SEE NOTE [facility] Comment: ??MRSA CULTURE SCREEN ??MICRO NUMBER: ?[id number] ??TEST STATUS: ? FINAL ??SPECIMEN SOURCE: ?? NOT GIVEN ??SPECIMEN QUALITY: ??ADEQUATE ??RESULT: ?No methicillin resistant Staphylococcus aureus ? (MRSA) isolated. 01/22/2019 11:3 8 AM EDT 01/22/2019 9:19 PM EDT Narrative Resulting Agency Comment [id number] us Ann Christina SOLAR DESIGNER/INSTALLER LABORATORY Final Res ult [facility] [address] [place] [address] * EKG-TO BE READ & BILLED BY [...] 25-OH, Total 26(L) 30 - 100 ng/mL [facility] Comment: Vitamin D Status ? 25-OH Vitamin D: Deficiency: ?<20 ng/mL Insufficiency: ? 20 - 29 ng/mL Optimal: ? > or = 30 ng/mL For 25-OH Vitamin D testing on patients on D2-supplementation and patients for whom quantitation of D2 and D3 fractions is required, the QuestAssureD(TM) 25-OH VIT D, (D2,D3), LC/MS/MS is recommended: order code 73110 (patients >2yrs). For more information on this test, go to: http://education.AngioSlide.Alizé Pharma/faq/UNM926 (This link is being provided for informational/educational purposes only.) 01/22/2019 10:3 6 AM EDT 01/22/2019 9:38 PM EDT Narrative Resulting Agency Comment [id number] us Ann Christina SOLAR DESIGNER/INSTALLER LABORATORY Final Res ult [facility] [address] [place] [address] * (ABNORMAL) CBC INCLUDES DIFFERENTIAL AND PLATELET COUNT (01/22/2019 10:36 AM EDT) Pathologist [facility] WBC 6.6 3.8 - 10.8 Thousand/u L [...] 9:38 PM EDT Narrative Resulting Agency Comment [id number] us Ann Sanford SOLAR DESIGNER/INSTALLER LAB SAME DAY RESULT Final Result [facility] [address] [place] [address] * (ABNORMAL) BASIC METABOLIC PANEL WITH (GFR) (01/22/2019 10:36 AM EDT) Pathologist [facility] Glucose 88 65 - 99 mg/dL [facility] Comment:Fasting reference in terval Urea Nitrogen Blood (BUN) 17 7 - 25 mg/dL [facility] Creatinine 0.76 0.50 - 1.05 mg/dL [facility] Comment: For patients >49 years of age, the reference limit for Creatinine is approximately 13% higher for people identified as -French. EGFR 89 > OR = 60 mL/min/1 [...] needs for GFR calculation. Resulting Agency Comment [id number] Ann Christina SOLAR DESIGNER/INSTALLER LABORATORY Final Res ult [facility] [address] [place] [address] documented in this encounter Visit Diagnoses Diagnosis Preop examination Preoperative examination, unspecified Low back pain of over 3 months duration Lumbosacral stenosis with neurogenic claudication Spinal stenosis, lumbar region, with neurogenic claudication Essential hypertension Latex allergy Allergy to latex Low vitamin D level Mixed hyperlipidemia documented in this encounter Care Teams Clinical Exercise Specialist Relationship Specialty Start Date End Date Clement Trent [facility]. [address] [place] [phone] PCP - General Internal Medicine 10/24/18 06/04/23 Vinny Avila MD [address] [place] [address] PCP - General Internal Medicine 06/05/23 documented as of this encounter
== END 2024-11-13 16:21 | disposition home or self-care (01) ==
LOC: HO.HMGCX 16:20
PROVIDERS: PCP Internal Medicine; Visit Provider Internal Medicine
DX: M79.672 Pain in left foot (principal)
CPT/HCPCS: 73630

== ENCOUNTER → 2024-11-13 16:23 | Outpatient (BNV) | payer OTHER, SELFPAY | PROVIDERS: PCP Internal Medicine; Visit Provider Radiology Diagnostic Radiology | DX: M19.072 Primary osteoarthritis, left ankle and foot (principal) | CPT/HCPCS: 73630 ==

== ENCOUNTER 2024-12-10 08:22 | Outpatient (REF) | payer OTHER, SELFPAY ==
--- NOTE | ~2024-12-10 | US_ITS ---
CLINICAL HISTORY: R10.12 - Left upper quadrant pain US abdomen complete Comparison: None Findings: The visualized pancreas is normal. The aorta and inferior vena cava are normal caliber. The liver is normal in size and echotexture. There is no intrahepatic bile duct dilatation. The common duct is 3.3 mm in diameter. The gallbladder is normal. There is no sonographic Ward sign. The main portal vein is antegrade. The right kidney is 11.0 cm in length. The left kidney is 12.1 cm in length. The spleen is normal. No ascites. IMPRESSION: 1. Normal complete abdominal ultrasound. This document has been electronically signed by: Genaro Boone MD on 12/11/2024 09:59:21
== END 2024-12-10 08:23 | disposition home or self-care (01) ==
LOC: HO.HMGCX 08:22
PROVIDERS: PCP Internal Medicine; Visit Provider Internal Medicine
DX: R10.12 Left upper quadrant pain (principal)
CPT/HCPCS: 76700

== ENCOUNTER → 2024-12-10 08:25 | Outpatient (BNV) | payer OTHER, SELFPAY | PROVIDERS: PCP Internal Medicine; Visit Provider Radiology Diagnostic Radiology | DX: R10.12 Left upper quadrant pain (principal) | CPT/HCPCS: 76700 ==

== ENCOUNTER 2025-04-09 07:51 | Outpatient (REF) | payer OTHER, SELFPAY ==
--- OUTSIDE RECORDS SUMMARY | 2024-04-09 06:30 | XMS_ITS ---
Author Organization [facility] Address [address] [place] [address] Care Team Providers Care Director Of Annual Giving Name Role Phone Austin ZHANG, [place] Primary Care Provider Unava Hernando Aldana Unavailable [phone] REASON FOR VISIT screening Problems Problem Type SNOMED Code ICD Code Onset Dates Problem Status W/U Status Risk Notes Problem Diverticular disease of colon (465319656) Diverticulosis of large intestine without perforation or abscess without bleeding (K57.30) Active confirmed Encounters Encounter Location Date Provider Diagnosis [facility] Outpatient [address] [place] [id number] 04/09/2024 Hernando Nguyễn Colon cancer scree justice Z12.11 ; Colon polyps K63.5 ; Diverticulosis of large intestine without perforation or abscess without bleeding K57.30 and Other hemorrhoids K64.8 Assessments Encounter Date Diagnosis (ICD Code) Assessment Notes Treatment Notes Treatment Clinical Notes Section Notes 04/09/2024 Colon cancer screening (ICD-10 - Z12.11) 04/09/2024 Colon polyps (ICD-10 - K63.5) 04/09/2024 Diverticulosis of large intestine without perforation or abscess without bleeding (ICD-10 - K57.30) 04/09/2024 Other hemorrhoids (ICD-10 - K64.8) Plan Of Treatment No Information Progress Notes * BILLY NIETODOB: 5 (59 yo F)Acc No.[id number]:04/09/2024 COLON WITH MAC Patient: Rick ASTERKENNETH ETIENNEIQUE Provider: Shaina Nguyễn MD :1965 A ge:58 Y S ex:Female Date:04/09/2024 Address:[address] [place], [place] [phone] Pcp:Vinny Avila MD Subjective: * Chief Complaints: * 1 . Screening. * Medical History: Objective: * Vitals: Assessment: * Assessment: 1. C olon cancer screening - Z12.11 (Primary) 2 . C olon polyps - K63.5? 3. D iverticulosis of large intestine without perforation or abscess without bleeding - K57.30 4 . O ther hemorrhoids - K64.8 Plan: * Treatment: * Procedure Codes: 4 5380 COLONOSCOPY AND BIOPSY, Modifiers: 33 * * The named appointment provid er may or may not be the originator of this progress note, and it is not deemed complete until electronically signed by the appointment provider. Sign off status: Pending * Provider: Shaina Nguyễn MD Date: 0 04/09/2024 Generated for Ramona clarke/Megha/Gurdeepitting on: 04/09/2025 07:57 AM EDT
--- OUTSIDE RECORDS SUMMARY | 2025-04-09 07:57 | XMS_ITS | Continuity of Care Document ---
Author Organization [facility] Address [address] [place] [address] Care Team Providers Care Lay Health Advocate Name Role Phone Vinny Avila MD Primary Care Provider [phone] Encounters Date Type Department Care Team Description 05/05/2024 3:20 PM EDT Office Visit [facility] Orthopedic Surgery [address] [place] [phone] Nixon Good MD Numbness and tingling in left hand (Primary Dx); Chronic neck pain; Foraminal stenosis of cervical region; Left wrist pain 04/15/2024 7:45 PM EDT Radiology [facility]. Magnetic Resonance Imaging [address] [place] [address] Radiculitis; Chronic neck pain; Numbness and tingling in left hand 03/21/2024 Orders Only [facility] Orthopedic Surgery Suite [facility] [address] [facility] [address] [place] [phone] Nixon Good MD 03/20/2024 Telephone [facility] Orthopedic Surgery [address] [facility] [address] [place] [phone] Nixon Good MD Imaging Study; Referrals 02/18/2024 Orders Only [facility] Orthopedic Surgery [address] [phone] Nixon Good MD 02/18/2024 Telephone [facility] Orthopedic Surgery [address] [facility] [address] [place] [address] Nixon Good MD Physical Therapy 09/10/2023 3:30 PM EST Minor Procedure/Test [facility] Neurology [address] [facility] [address] [place] [address] Kika Ferguson MD Left arm pain (Primary Dx); Numbness and tingling of left thumb 06/05/2023 11:00 AM EST Radiology [facility] Xray [address] [facility] [address] [place] [address] Cervical spine pain 06/05/2023 11:40 AM EST Consult (Initial) [facility] Orthopedic Surgery [address] [facility] [address] [place] [address] Nixon Good MD Radiculitis (Primary Dx); Chronic neck pain; Numbness and tingling in left hand 06/04/2023 Orders Only [facility] Orthopedic Surgery [address] [facility] [address] [place] [phone] Nixon Good MD 06/30/2020 Travel 06/30/2020 10:15 PM EST Radiology [facility]. Magnetic Resonance Imaging [address] [place] [address] Right hip pain 06/23/2020 Travel 11/04/2019 8:00 AM EDT Office Visit [facility] Orthopedic Surgery [address] [facility] [address] [place] [address] Nixon Good MD Low back pain of over 3 months duration (Primary Dx); Shoulder pain, unspecified chronicity, unspecified laterality 04/21/2019 7:35 AM EDT Radiology [facility] Xray [address] [facility] [address] [place] [address] Low back pain of over 3 months duration 04/21/2019 8:00 AM EDT Office Visit [facility] Orthopedic Surgery [address] [facility] [address] [place] [address] Nixon Good MD Low back pain of over 3 months duration (Primary Dx); Facet arthritis of lumbar region 03/21/2019 Telephone [facility] Orthopedic Surgery [address] [facility] [address] [place] [address] Nixon Good MD Letter/form Request 02/24/2019 9:50 AM EDT Radiology [facility] Xray [address] [facility] [address] [place] [address] Low back pain, unspecified back pain laterality, unspecified chronicity, with sciatica presence unspecified 02/24/2019 9:30 AM EDT Office Visit [facility] Orthopedic Surgery [address] [facility] [address] [place] [address] Nixon Good MD Low back pain of over 3 months duration (Primary Dx) 02/21/2019 Orders Only [facility] Orthopedic Surgery [address] [facility] [address] [place] [address] Nixon Good MD 02/12/2019 Telephone [facility] Orthopedic Surgery [address] [facility] [address] [place] [address] Nixon Good MD [employer] (rash) 02/11/2019 Orders Only [facility] Orthopedic Surgery [address] [facility] [address] [place] [address] Nixon Good MD Medications 02/06/2019 Minor Procedure/Test NON [facility] [address] [place] [address] Nixon Good MD 02/06/2019 Hospital/Inpatie nt NON [facility] [address] [place] [address] Nixon Good MD 01/30/2019 Orders Only NON [facility] [address] [place] [address] Nixon Good MD 01/22/2019 Orders Only [facility] Cardiology [address] [facility] [address] [place] [address] Santos Cast DO 01/22/2019 Orders Only [facility] Pre-Admission Testing [address] [place] [address] Ann Christina NP 01/22/2019 8:30 AM EDT Office Visit [facility] Pre-Admission Testing [address] [place] [address] Ann Christina NP Preop examination (Primary Dx); Low back pain of over 3 months duration; Lumbosacral stenosis with neurogenic claudication (HCC); Essential hypertension; Latex allergy; Low vitamin D level; Mixed hyperlipidemia 12/09/2018 8:10 AM EDT Office Visit [facility] Orthopedic Surgery [address] [place] [address] [address] [place] [address] Nixon Good MD Low back pain of over 3 months duration (Primary Dx); Facet arthritis of lumbar region; Foraminal stenosis of lumbar region; Lumbosacral stenosis with neurogenic claudication (HCC) 12/03/2018 7:45 AM EDT Radiology [facility]. Magnetic Resonance Imaging [address] [place] [address] Chronic bilateral low back pain with bilateral sciatica 11/12/2018 9:05 AM EDT Radiology [facility] Xray [address] [place] [address] [place] [address] Low back pain of over 3 months duration; Facet arthritis of lumbar region; Foraminal stenosis of lumbar region; Chronic bilateral low back pain with bilateral sciatica 11/12/2018 8:20 AM EDT Consult (Initial) [facility] Orthopedic Surgery [address] [place] [address] [address] [place] [address] Nixon Good MD Low back pain of over 3 months duration (Primary Dx); Facet arthritis of lumbar region; Foraminal stenosis of lumbar region; Chronic bilateral low back pain with bilateral sciatica; Lumbosacral stenosis with neurogenic claudication (HCC) 10/23/2018 Consult (Initial) ORTHO SURG UNSPECIFIED Juan Francisco Butts 06/18/2018 Consult (Initial) ORTHO SURG UNSPECIFIED Juan Francisco Butts 01/26/2018 Minor Procedure/Test REHABILITATION UNSPEC Benjamín Nerisiriasarah Oliva 01/03/2018 Consult (Initial) ORTHO SURG UNSPECIFIED [...] mL, 11 Refills, Maintenance, 02/15/24 11:33:00 EDT, [facility], 165, cm, 11/14/23 8:48:00 [...] Active Problems No known active problems Immunizations Immunization Administration Dates Next Due COVID-19, mRNA (Pfizer Pre F all 2022) Monovalent, 30 mcg/0.3 ml 10/27/2020,10/06/2020 Tdap 12/17/2020 Social History Smoking Status as of 04/09/2025 Tobacco Use Types Packs/Day Years Used Date [...] 76 01/22/2019 8:21 AM EDT Temperature 36.9 C (98.5 F) 01/22/2019 8:21 AM EDT Respiratory Rate 14 01/22/2019 8:21 AM EDT [...] LUMBAR SPINE 3 VIEW MAX Routine 02/08/20 19 9:19 AM EDT BASIC METABOLIC PANEL Routine [...] CONTRAST: MR cervical spine without gadolinium Comparison: CR/OR - XRAY SPINE, CERVICAL; 3 VIEWS OR [...] There is mild spinal cord compression with bryjbhbx-ts-zwgoan spinal canal narrowing. No altered spinal cord signal intensity. There is [...] foraminal stenoses are present and described above. These appear worst on the right at C5-C6 and on the left at C3-C4. Procedure Note Isai Shah MD - 04/16/2024 Patient History: Radiculitis CONTRAST: MR cervical spine without gadolinium Comparison: CR/OR - XRAY SPINE, CERVICAL; 3 VIEWS OR [...] cord. There is mild spinal cord compression jjwapqmfxozr-gq-cukgik spinal canal narrowing. No altered spinal cord [...] (EMG/NCS) FOR NEUROLOGY DEPT USE ONLY (09/10/2023) us Kika Ferguson MD PROCEDURES Final Result * [...] and degenerative spondylosis of the C5-6. Nixon CHAVEZG XRAY NO CONTRAST ORDERABLES Final Result * [...] labral tear/repair to right hip ?8 years. Cortisone injection 03/31/2020 Findings: Degenerative disc and endplate disease at L4-5 and L5-S1. No arthritis at the SI joints or symphysis pubis. No osseous lesions in the pelvis. No hip fracture dislocation or AVN. Right hip demonstrates large complex joint effusion with synovitis. There is complete loss of articular cartilage along the femoral head and the acetabulum. There is extensive bone marrow edema throughout the femoral head and the acetabulum. There is mild osteophytosis with small subcortical cyst at the superior acetabulum.. Acetabular labrum appears mildly thickened and amorphous with increased internal signal but without linear tear.. The arthritic changes are new when compared to the radiographs of 11/12/2018 Left hip demonstrates osteophytosis with joint space loss and subcortical edema.. There is a moderate left hip effusion which is also a complex demonstrating synovitis. There is uncovering of the left femoral head. The arthritic changes appear to have progressed when compared to the prior exam where it was moderate in degree. Impression: 1. Severe arthritis in the right hip with large complex joint effusion and synovitis. Complete loss of articular cartilage and extensive bone marrow edema. The findings have significantly progressed since the radiographs of 2019 and may represent severe degenerative osteoarthritis. Given the clinical history of recent cortisone injection, the possibility of septic joint is not excluded. Arthrocentesis can be performed for further [...] mildly progressed when comparedto radiograph of 2019 us Juan Francisco Butts IMG MR NO CONTRAST ORDERABL ES Final Result * XRAY SPINE, LUMBOSACRAL; 2 OR 3 VIEWS FC (04/21/2019 8:00 AM EDT) Only the most recent of3 resultswithin the time period is included. Anatomical Region Laterality Modality Spine Radiographic Muna ging 04/22/2019 8:33 AM EDT Narrative 04/22/2019 8:33 AM EDT EXAM: LUMBAR SPINE SERIES: COMPARISON: CR - [...] changes again noted, no progression sinceprevious study. Nixon Good MD IMG XRAY NO CONTRAST ORDERABLES Final Result * LUMBAR SPINE 3 VIEW MAX (02/07/2019 9:19 AM EDT) RADIOLOGY REPORT [facility] Department of Radiology [address] [place] [address], [address] Name: BILLY MICHELE : 63 Date of Service: 02/07/19 1018 Acct Number: [id number] Order Number: [id number] Location: [facility] Report Number: [id number] Service: REG [facility] [place]/ Requesting Physician: Sean Goodwin Category: RADIOLOGY [facility] Exam: LUMBAR SPINE 2 OR 3 VIEWS Signs/Symptoms: post op lumbar decompression Report Status: [...] facet hypertrophy at L4-L5 and L5-S1. IMPRESSION: 1. Status post laminectomy at L2 and L3. No fracture or subluxation. 2. Qqov-fu-zzrzmwpf multilevel degenerative changes of lower lumbar spine. Date/Time of Dictation: 02/07/19 1143 Community Leader (if applicable): Lubna Harding Approved By Attending Radiologist: Catherine Romano 02/07/19 1143 [facility] Department of Radiology [address] [place] [address], [address] [facility] Anatomical Region Laterality Modality Other 02/07/2019 9:19 AM EDT Narrative 02/07/2019 11:43 AM EDT Reason for Study/History: Department of Radiology TEST(S) PROCESSED BY [facility] XRAY us Unknown Provider [facility] IMAGING-[facility] Final Resul t * (ABNORMAL) CBC W/O DIFFERENTIAL (02/07/2019 5:41 AM EDT) WHITE BLOOD COUNT 11.8(H) 3.9 - 11.0 x1000/uL [facility] RBC 3.89 3.70 - 5.10 mil/ul [facility] Hemoglobin 10.4(L) 11.5 - 15.0 g/dL [facility] HCT (HEMATOCRIT) 32.3(L) 34.0 - 44.0 % [facility] MCV 83 80 - 100 fL [facility] MCH 27 27 - 33 pg [facility] MCHC 32 31 - 36 g/dL [facility] RDW 14.1 11.4 - 14.4 % [facility] PLATELETS 294 150 - 450 x1000/uL [facility] 02/07/2019 5:41 AM EDT 02/07/2019 5:41 AM EDT Nixon Good MD LABORATORY Final Result [facility] [address] [place] [address] * (ABNORMAL) BASIC METABOLIC PANEL (02/07/2019 5:41 AM EDT) Glucose 106(H) 65 - 99 mg/dL [facility] BUN 13 5 - 26 mg/dL [facility] CREATININE 0.77 0.5 - 1.5 mg/dL [facility] BUN/Creatinine Ratio 17 8 - 27 [facility] GLOM FILT RATE, EST 87.5 >59 mL/min [facility] IF -JORDON N 101.5 >59 mL/min [facility] SODIUM 141 134 - 144 mEq/L [facility] POTASSIUM 3.6 3.6 - 5.6 mEq/L [facility] CHLORIDE 106 96 - 109 mEq/L [facility] CARBON DIOXIDE 28 20 - 32 mEq/L [facility] ANION GAP 7.0(L) 8 - 15 [facility] CALCIUM 8.7 8.3 - 10.0 mg/dL [facility] 02/07/2019 5:41 AM EDT 02/07/2019 5:41 AM EDT Nixon Good MD LABORATORY Final Result [facility] [address] [place] [address] * OR IMAGING C-ARM (02/06/2019 9:34 AM EDT) RADIOLOGY REPORT [facility] Department of Radiology [address] [place] [address], [address] Name: BILLY MICHELE : 63 Date of Service: 02/06/19929 Acct Number: [id number] Order Number: [id number] Location: [facility] Report Number: [id number] Service: REG ORC/ Requesting Physician: Nixon Good MD ([facility]) Category: RADIOLOGY OR CASES Exam: OR IMAGING C-ARM Signs/Symptoms: L-SPINE Report Status: ---Signed--- Study: Fluoroscopy [...] for details. Date/Time of Dictation: 02/06/19 1219 Community Leader (if applicable): Isaiah Echevarria Approved By Attending Radiologist: Catherine Romano 02/06/19 1219 [facility] Department of Radiology [address] [place] [address], [address] [facility] Anatomical Region Laterality Modality Other 02/06/2019 9:34 AM EDT Narrative 02/06/2019 12:19 PM EDT Reason for Study/History: Department of Radiology TEST(S) PROCESSED BY [facility] XRAY Nixon Good MD IMAGING-[facility] Final Result * UNSPECIFIED MAJOR PROCEDURE [...] L2-L3 microdiskectomy. ATTENDING SURGEON: Dr. Nixon Good. ALUM MIXER: Sean Goodwin PA-C. ANESTHESIA: GETA and 40 [...] was seen in the holding area at [facility]. The STOP sheet was completed [...] was brought to Operating Room 12 at [facility]. Successful general endotracheal anesthesia was [...] 10:32 A TT: 10:48 A Doc #: [id number] cc: Nixon Good MD Nixon Good MD PROCEDURES Final Result * BLOOD TYPE AND ANTIBODY SCREEN (01/30/2019 8:00 AM EDT) BLOOD GROUP ABO A [facility] RH-(D) Positive [facility] ANTIBODY SCREEN Negative Negative [facility] 01/30/2019 8:00 AM EDT 01/30/2019 8:00 AM EDT us Nixon Good MD LABORATORY Final Result Performing Organization Address City/[facility] Co de Phone Number [facility] [address] [place] [address] * MRSA CULTURE SCREEN, NASAL ONLY (01/22/2019 11:38 AM EDT) Pathologist [facility] Methicillin Resistant Staphylococcus Aureus Screen SEE NOTE [facility] Comment: MRSA CULTURE SCREEN MICRO NUMBER: [id number] TEST STATUS: FINAL SPECIMEN SOURCE: NOT GIVEN SPECIMEN QUALITY: ADEQUATE RESULT: No methicillin resistant Staphylococcus aureus (MRSA) isolated. 01/22/2019 11:3 8 AM EDT 01/22/2019 9:19 PM EDT Narrative Resulting Agency Comment [id number] us Ann Christina NP LABORATORY Final Res ult Performing Organization Address [facility] Co de Phone Number [facility] [address] [facility] [place] [address] * EKG-TO BE READ & BILLED BY [...] AND PLATELET COUNT (01/22/2019 10:36 AM EDT) WBC 6.6 3.8 - 10.8 Thousand/u L [...] 9:38 PM EDT Narrative Resulting Agency Comment [id number] Ann Christina FERRYBOAT OPERATOR CABLE LAB SAME DAY RESULT Final Result [facility] [address] [place] [address] * (ABNORMAL) VITAMIN D, 25-HYDROXY, TOTAL, IMMUNOASSAY (01/22/2019 10:36 AM EDT) Vitamin D, 25-OH, Total 26(L) 30 - 100 ng/mL [facility] Comment: Vitamin D Status 25-OH Vitamin D: Deficiency: <20 ng/mL Insufficiency: 20 - 29 ng/mL Optimal: > or = 30 ng/mL For 25-OH Vitamin D testing on patients on D2-supplementation and patients for whom quantitation of D2 and D3 fractions is required, the QuestAssureD(TM) 25-OH VIT D, (D2,D3), LC/MS/MS is recommended: order code [id number] (patients >2yrs). For more information on this test, go to: http://education.Wander (f. [employer])/faq/ALS669 (This link is being provided for informational/educational purposes only.) 01/22/2019 10:3 6 AM EDT 01/22/2019 9:38 PM EDT Narrative Resulting Agency Comment [id number] us Ann Christina FERRYBOAT OPERATOR CABLE LABORATORY Final Res ult [facility] [address] [place] [address] * (ABNORMAL) BASIC METABOLIC PANEL WITH (GFR) (01/22/2019 10:36 AM EDT) Glucose 88 65 - 99 mg/dL [facility] Comment:Fasting reference in terval Urea Nitrogen Blood (BUN) 17 7 - 25 mg/dL [facility] Creatinine 0.76 0.50 - 1.05 mg/dL [facility] Comment: For patients >49 years of age, the reference limit for Creatinine is approximately 13% higher for people identified as -Kittitian. EGFR 89 > OR = 60 mL/min/1 [...] needs for GFR calculation. Resulting Agency Comment [id number] us Ann Christina FERRYBOAT OPERATOR CABLE LABORATORY Final Res ult [facility] [address] [place] [address] * MRI LUMBAR SPINE W/O CONTRAST FC (12/03/2018 8:40 AM EDT) Anatomical Region Laterality Modality Spine Magnetic Resonan ce 12/04/2018 12:2 2 PM EDT Narrative 12/04/2018 12:22 PM EDT EXAM: MRI LUMBAR SPINE WITHOUT CONTRAST: COMPARISON: CR - SPINE LUMBAR XRAY - 11/12/2018 08:53 AM EDT TECHNIQUE: Sagittal T1, T2, STIR and axial T2 weighted images. FINDINGS: Vertebral body heights, alignment and marrow signal are unremarkable. T11-12: Disc desiccation, decreased disc height, anterior osteophytes, small posterior disc bulge. No effect and lower canal or cord. T12-L1 and L1-2: No significant disc pathology. No canal or foraminal stenosis. L2-3: Disc desiccation, slight decrease in disc height. Broad-based posterior disc bulge. Focal left paramedian disc herniation prolapses inferiorly. The prolapsed disc fragment measures approximately 8 x 8 x 6 mm. There is moderately severe left and moderate right foraminal narrowing secondary to disc bulge. L3-4: Right base posterior disc bulge with slight prolapsed inferiorly in the midline. Mild facet joint hypertrophy. No significant [...] * UNLISTED MAGNETIC REASANCE PROCEDURE (01/26/2018) 01/26/2018 us Juan Francisco Butts CONTRAST STUDY- OTHER Final [...] Pain in joint, forearm 05/05/2024 Care Teams Lay Health Advocate Relationship Specialty Start Date End Date Vinny Avila MD [address] [place] [address] PCP - General Internal Medicine 06/05/23
--- OUTSIDE RECORDS SUMMARY | 2025-04-09 07:57 | XMS_ITS | Encounter Summary ---
Author Organization [facility] Address [address] [place] [address] Care Team Providers Care Trapeze Artist Name Role Phone Miley Clement J Primary Care Provider [phone] Vinny Avila MD Primary Care Provider [phone] Encounter Details Date Type Department Care Team (Late st Contact Info) Description 02/21/2019 Orders Only [facility] Orthopedic Surgery [address] [address] Nixon Good MD [address] [place] [address] Social History Tobacco Use Types Packs/Day Years [...] of this encounter Results * Due to [place] state law, this organization might not be sharing negative HIV tests. * XRAY SPINE, LUMBOSACRAL; 2 OR 3 VIEWS FC (02/24/2019 9:33 AM EDT) Anatomical Region Laterality Modality Spine Radiographic Muna ging 02/24/2019 11:4 4 AM EDT Narrative 02/24/2019 11:44 AM EDT Lumbar spine standing AP and lateral views. Comparison: MRI 12/03/2018. Findings: L2 and L3 laminectomy. Mild disc space narrowing with spondylotic spurring at L1-L2 and L2-L3. Moderate disc space narrowing at L5-S1. Minimal posterior disc space narrowing at L4-L5. No significant malalignment. Sacroiliac joints are normal. Vertebral body heights maintained. No suspicious bony lesions. IMPRESSION: Status post laminectomy [...] unspecified documented in this encounter Care Teams Trapeze Artist Relationship Specialty Start Date End Date Clement Trent [facility]. [address] [place] [phone] PCP - General Internal Medicine 10/24/18 06/04/23 Vinny Avila MD [address] [place] [address] PCP - General Internal Medicine 06/05/23 documented as of this encounter
--- OUTSIDE RECORDS SUMMARY | 2025-04-09 07:57 | XMS_ITS | Encounter Summary ---
Author Organization [facility] Address [address] [place] [address] Care Team Providers Care Election Watcher Name Role Phone Vinny Avila MD Primary Care Provider [phone] Reason for Visit * Reason Comments Physical Therapy Encounter Details Date Type Department Care Team ([facility] st Contact Info) Description 02/18/2024 Telephone [facility] Orthopedic Surgery [address] [address] Nixon Good MD [address] [place] [address] Physical Therapy Social History Tobacco Use Types [...] a physical therapy order is faxed to [phone]. documented in this encounter Plan of Treatment Not on file documented as of this encounter Visit Diagnoses Not on filedocumented in this encounter Care Teams Election Watcher Relationship Specialty Start Date End Date Vinny Avila MD [address] [place] [address] PCP - General Internal Medicine 06/05/23 documented as of this encounter
--- OUTSIDE RECORDS SUMMARY | 2025-04-09 07:57 | XMS_ITS | Patient Health Record ---
Author Organization [facility] Address [address] [place] [address] Care Team Providers Care Chore Worker Name Role Phone Austin ZHANG, [place] Primary Care Provider Hernando Lutz [phone] Allergies Allergen (clinical drug ingredient) Drug/Non Drug Allergy documented on EMR Reaction Allergy Type Onset Date Status erythromycin Erythromycin Unknown Drug Allergy A ctive Latex Latex Unknown Allergy Active meperidine Demerol Unknown Drug Allergy Active Results Component Value Reference Range Notes Pathology (Not yet reviewed by provider) Interpretation: Performing Lab:[facility], [address] [place] [phone] Notes/Report: Reason For Referral No Information Medications Medication [...] Problem Screening for malignant neoplasm of colon (224608742) Encounter for screening for malignant neoplasm of colon (Z12.11) Active confirmed Problem Pre-procedure evaluation check (905207432) Encounter for other preprocedural examination (Z01.818) Active confirmed Problem Diverticular disease of colon (391720046) Diverticulosis of large intestine without perforation or abscess without bleeding (K57.30) Active confirmed Encounters Encounter Location Date Provider Diagnosis [facility] Outpatient [address] [place] [id number] 04/09/2024 Hernando Nguyễn Colon cancer inocenciae justice Z12.11 ; Colon polyps K63.5 ; [...] Insured Coverage Start Date Coverage End Date [facility] ([employer]) [address] [place], [place] [id number] BILLY NIETO Self - patient is the insured Medical (General) History Medical History History ICD Code HTN Hyperlipdiemia Negative screenng colonoscopy age 49 at [facility] with [address] 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 Leal-at [facility] Surgical History Surgery Date(Month/Year) Right knee 1984 Bilateral hip replacements 2020 Back surgery 2019 2 C-sections Partial hysterectomy
--- OUTSIDE RECORDS SUMMARY | 2025-04-09 07:57 | XMS_ITS | Encounter Summary ---
Author Organization [facility] Address [address] [place] [address] Care Team Providers Care Editor Sound Name Role Phone Clement Trent Primary Care Provider [phone] Vinny Avila MD Primary Care Provider [phone] Encounter Details Date Type Department Care Team (Late st Contact Info) Description 01/22/2019 Orders Only [facility] Pre-Admission Testing [address] [place] [id number] Ann Christina NP Social History Tobacco Use [...] of this encounter Procedures * Due to [place] state law, this organization might not be [...] in this encounter Results * Due to [place] state law, this organization might not be sharing negative HIV tests. * MRSA CULTURE SCREEN, NASAL ONLY (01/22/2019 11:38 AM EDT) Pathologist [facility] Methicillin Resistant Staphylococcus Aureus Screen SEE NOTE [facility] Comment: MRSA CULTURE SCREEN MICRO NUMBER: [id number] TEST STATUS: FINAL SPECIMEN SOURCE: NOT GIVEN SPECIMEN QUALITY: ADEQUATE RESULT: No methicillin resistant Staphylococcus aureus (MRSA) isolated. 01/22/2019 11:3 8 AM EDT 01/22/2019 9:19 PM EDT Narrative Resulting Agency Comment [id number] Ann Christina [facility] Final Res ult [facility] [address] [place] [address] * EKG-TO BE READ & BILLED BY [...] EDT 01/23/2019 12:06 AM EDT Ann Christina [facility] CARDIOVASC[facility]-WITH INBSK T RTG Final Result Performing Organization Address City/[facility]/ZIP Co de Phone Number [facility] * (ABNORMAL) VITAMIN D, 25-HYDROXY, TOTAL, IMMUNOASSAY (01/22/2019 10:36 AM EDT) Vitamin D, 25-OH, Total 26(L) 30 - 100 ng/mL [facility] Comment: Vitamin D Status 25-OH Vitamin D: Deficiency: <20 ng/mL Insufficiency: 20 - 29 ng/mL Optimal: > or = 30 ng/mL For 25-OH Vitamin D testing on patients on D2-supplementation and patients for whom quantitation of D2 and D3 fractions is required, the QuestAssureD(TM) 25-OH VIT D, (D2,D3), LC/MS/MS is recommended: order code 91111 (patients >2yrs). For more information on this test, go to: http://education.XING/faq/XJC212 (This link is being provided for informational/educational purposes only.) 01/22/2019 10:3 6 AM EDT 01/22/2019 9:38 PM EDT Narrative Resulting Agency Comment [id number] Ann Christina [facility] Final Res ult Performing Organization Address City/[facility]/ZIP Co de Phone Number [facility] [address] [place] [place] [address] * (ABNORMAL) CBC INCLUDES DIFFERENTIAL AND PLATELET [...] 9:38 PM EDT Narrative Resulting Agency Comment [id number] Ann Christina [facility] SAME DAY RESULT Final Result Performing Organization Address City/State/[facility] Co de Phone Number [facility] [address] [place] [address] * (ABNORMAL) BASIC METABOLIC PANEL WITH (GFR) (01/22/2019 10:36 AM EDT) Glucose 88 65 - 99 mg/dL [facility] Comment:Fasting reference in terval Urea Nitrogen Blood (BUN) 17 7 - 25 mg/dL [facility] Creatinine 0.76 0.50 - 1.05 mg/dL [facility] Comment: For patients >49 years of age, the reference limit for Creatinine is approximately 13% higher for people identified as -[place]ib[place]. EGFR 89 > OR = 60 mL/min/1 [...] needs for GFR calculation. Resulting Agency Comment [id number] Ann Christina [facility] Final Res ult [facility] [address] [place] [address] documented in this encounter Visit Diagnoses Diagnosis Preop examination Preoperative examination, unspecified Low back pain of over 3 months duration Lumbosacral stenosis with neurogenic claudication Spinal stenosis, lumbar region, with neurogenic claudication Essential hypertension Latex allergy Allergy to latex Low vitamin D level Mixed hyperlipidemia documented in this encounter Care Teams Editor Sound Relationship Specialty Start Date End Date Clement Trent [facility] [address] [place] [phone] PCP - General Internal Medicine 10/24/18 06/04/23 Vinny Avila MD [address] [place] [address] PCP - General Internal Medicine 06/05/23 documented as of this encounter
--- OUTSIDE RECORDS SUMMARY | 2025-04-09 07:57 | XMS_ITS | Patient Health Record ---
Author Organization [facility] Address [address] [place] [address] Care Team Providers Care Claim Technician Name Role Phone Austin ZHANG [place] Primary Care Provider Unava ilable Black, Soo Unavailable [phone] Allergies Allergen (clinical drug ingredient) Drug/Non Drug Allergy documented on EMR Reaction Allergy Type Onset Date Status Adhesive Tape (uncoded) blisters Allergy Active Latex Latex (uncoded) Blisters / Hives Allergy Active ibuprofen Advil has stent Drug Allergy Active Aleve has stent Drug Allergy Active meperidine Demerol heart palpitations Drug Allergy Active erythromycin Erythromycin Unknown Drug Allergy A ctive Motrin has stent Drug Allergy Active Results Component Value Reference Range Notes X ray : Foot, left 3V Reviewed date:02/27/2025 10:00:49 AM Interpretation:See Examination above Performing Lab: Notes/Report: See Examination above Reason For Referral No Information Medications Medication SIG (Take, Route, Frequency, Duration) Notes Start Date End Date Status Aspirin 81 81 MG 1 tablet Orally 3 times a day 02/18/2025 Active Ketoconazole 2 % 1 application Apply a thin layer to externally to feet, even between toes Twice a day; Duration: 30 days Active Repatha Active Metoprolol & Diet Manage Prod Active hydroCHLOROthiazide 12.5 MG 1 capsule in the morning Orally 4 times a day Active Physical Therapy . . . 2-3x/week; Duration: 3-4 weeks 02/27/2025 Active Immunizations Vaccine Route Administration Date Status Comme nts Influenza Unknown 02/27/2025 Refused Social History Tobacco Use: Social History Observation Description Date Details (start date - stop date) Never Smoker NA - NA Tobacco use other than smoking: Question Answer Notes Are you an other tobacco user? No Tobacco Control (Standard) Question Answer Notes Tobacco use: Nonsmoker Additional Findings: Tobacco non-user Current no nsmoker Problems Problem Type SNOMED Code ICD Code Onset Dates Problem Status W/U Status Risk Notes Problem Peroneal tendinitis (70637797) Peroneal tendinitis, left leg (M76.72) Active confirmed Problem Achilles bursitis (627683272) Achilles tendinitis of left lower extremity (M76.62) Active confirmed Problem Onychomycosis (774190793) Onychomycosis (B35.1) Active confirmed Problem Tinea pedis (1623513) Tinea pedis of both feet (B35.3) Active confirmed Problem Hypertrophy of bone of left foot (6426906463155068 0) Hypertrophy of bone of left foot (M89.372) Active confirmed Vital Signs Blood pressure diastolic 80 mm Hg 02/27/2025 Height 5ft 5in in 02/27/2025 Blood pressure systolic 120 mm Hg 02/27/2025 Weight 208 lbs 02/27/2025 BMI 34.61 kg/m2 02/27/2025 Encounters Encounter Location Date Provider Diagnosis [facility] [address] [address] 02/27/2025 Soo Black Pain in left foot M79.672 ; Pain in left ankle and joints of left foot M25.572 ; Bursitis of left foot M77.52 ; Achilles tendinitis of left lower extremity M76.62 ; Pain of left heel M79.672 ; Pain in right toe(s) M79.674 ; Onychomycosis B35.1 ; Pain in left toe(s) M79.675 ; Tinea pedis of both feet B35.3 ; Hypertrophy of bone of left foot M89.372 and Peroneal tendinitis, left leg M76.72 Assessments Encounter Date Diagnosis (ICD Code) Assessment Notes Treatment Notes Treatment Clinical Notes Section Notes 02/27/2025 Pain in left ankle and joints of left foot (ICD-10 - M25.572) 02/27/2025 Pain in left foot (ICD-10 - M79.672) 02/27/2025 Bursitis of left foot (ICD-10 - M77.52) 02/27/2025 Achilles tendinitis of left lower extremity (ICD-10 - M76.62) Patient Educated with: HEEL CORD STRETCHES.pdf (HEEL CORD STRETCHES.pdf) Patient Educated with: RICE THERAPY.pdf (RICE THERAPY.pdf) 02/27/2025 Pain of left heel (ICD-10 - M79.672) 02/27/2025 Pain in right toe(s) (ICD-10 - M79.674) 02/27/2025 Onychomycosis (ICD-10 - B35.1) EBM Medical prescription ordered and faxed 02/27/2025 Pain in left toe(s) (ICD-10 - M79.675) 02/27/2025 Tinea pedis of both feet (ICD-10 - B35.3) Patient Educated with: ATHELETE .pdf (ATHELETE .pdf) 02/27/2025 Hypertrophy of bone of left foot (ICD-10 - M89.372) 02/27/2025 Peroneal tendinitis, left leg (ICD-10 - M76.72) Patient Educated with: PERONEAL TENDON INJURY REHAB. EXERCISES.pdf (PERONEAL TENDON INJURY REHAB. EXERCISES.pdf) Plan Of Treatment Next Appt Details Provider Name:Soo Nelson , 04/21/2025 08:30:00 AM, [address] [facility], [place], [address], Insurance Providers Payer Name Payer Address Payer Phone Subscriber Number Group Number Insured Name Patient Relationship to Insured Coverage Start Date Coverage End Date [facility] [address] [place], [place] [id number] [phone] [id number] Lorelei Michele Self - patient is the insured Medical (General) History Medical History History ICD Code osteoarthritis Broken bones / Right foot basal cell carcinoma / Nose covid-19 /2 times Heart Stent High Blood Pressure Joint implants/screws / 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
--- OUTSIDE RECORDS SUMMARY | 2025-04-09 07:57 | XMS_ITS | Clinical Summary ---
Author Organization [facility] Address [address] [facility] [address] [place] [address] Phone Care Team Providers Care Fur Examiner Name Role Phone Vinny Avila MD Primary Care Provider [phone] Allergies Active Allergy Reactions Criticality Noted Date Comments Aspartame Nausea And Vomiting Medium 04/21/2019 Azithromycin 02/08/2019 Cortisone 04/15/2024 Erythromycin Diarrhea 11/12/2018 Other Reaction(s): nausea Latex 11/12/2018 Other Reaction(s): Maculopapular Rash, rash at site Meperidine 11/12/2018 Other Reaction(s): Arrhythmia, heart palpation Medications acetaminophen (TYLENOL) 500 MG tablet Take 1,000 mg by mouth every 8 (eight) hours as needed for pain (specific location in comments). 9 Active docusate sodium (COLACE) 100 MG capsule Take 100 mg by mouth 2 (two) times a day as needed for constipation. Active methocarbamol (ROBAXIN) 500 MG tablet Take 500 mg by mouth 4 (four) times a day as needed (spasm). Active senna (SENNA) 8.6 mg tablet Take 1 tablet by mouth daily as needed for constipation. Active oxyCODONE 5 MG immediate release tablet Take 5-10 mg by mouth every 4 (four) hours as needed for pain (specific location in comments). Active chlorthalidone (HYGROTON) 25 MG tablet Take 12.5 mg by mouth daily. Active estradiol (VAGIFEM) [address] 10 mcg vaginally 2 (two) times a week. Active red yeast rice 600 mg Cap Take 1,200 mg by mouth 2 (two) times a day. Active hydroCHLOROthiaz brigitte 25 MG tablet TAKE 1/2 tablet (12.5mg) BY MOUTH ONCE DAILY 4 Active metoprolol tartrate (LOPRESSOR) 25 MG tablet Take 2 tablets by mouth 2 (two) times a day. 4 Active aspirin 81 MG EC tablet Take 81 mg by mouth daily. Active REPATHA SURECLICK 140 mg/mL PnIj subcutaneous pen injector See Instructions, inject 140 mg Subcutaneous Infusion Every 14 days, # 2 mL, 11 Refills, Maintenance, 02/15/24 11:33:00 EDT, [facility], 165, cm, 11/14/23 8:48:00 EDT, Height, 98, kg, 05/10/23 21:30:00 EDT, Dry Weight Active Active Problems Problem Noted Date Diagnosed Date Basal cell carcinoma (BCC) of right side of nose 04/15/2024 Family history of melanoma 04/15/2024 Aspirin long-term use 04/15/2024 Family History Medical History Relation Comments Cancer Mother Relation Status Comments Father Mother Social History Tobacco Use Types Packs/Day Years Used Date Smoking Tobacco: Never Smokeless Tobacco: Never Tobacco Cessation:Counseling Given: Not Answered Alcohol Use Standard Drinks/Week Comments Yes 0 (1 standard drink = 0.6 oz pur e alcohol) Rare Education Answer Date Recorded Are you interested in more education? Not on glenn e 11/17/2022 Are you concerned about learning? Not on file 11/17/2022 No 11/17/2022 No 11/17/2022 Digital Access Answer Date Recorded No 12/19/2022 No 12/19/2022 Reliable internet access at home? Not on file 12/19/2022 Device with a working camera? Not on file Comments Unknown Sex and Gender Information Value Date Recorded Sex Assigned at Not on file Legal Sex Female 8:41 AM EDT Gender Identity Not on file Sexual Orientation Not on file Last Filed Vital Signs Vital Sign Reading Time Taken Comments Blood Pressure 144/86 05/09/2024 2:12 PM EDT Pulse 73 05/09/2024 2:12 PM EDT Temperature 37.1 C (98.7 F) 02/19/2019 8:26 AM EDT Respiratory Rate 18 02/19/2019 8:26 AM EDT Oxygen Saturation 96% 05/09/2024 2:12 PM EDT Inhaled Oxygen Concentration - - Weight 97.2 kg (214 lb 3.2 oz) 04/15/2024 8:38 A M EDT Height 160 cm (5' 3 ) 04/15/2024 8:38 AM EDT Body Mass Index 37.94 04/15/2024 8:38 AM EDT Plan of Treatment Health Maintenance Due Date Last Done Comments LIPID PANEL 1964 POTASSIUM LEVEL 1964 DEPRESSION SCREENING 1976 HEPATITIS C SCREENING 1982 HIV ONE-TIME SCREENING (18-6 5 YEARS) 1982 PAP SMEAR 1985 SCREENING FOR DIABETES 1999 MAMMOGRAM 2004 COLOGUARD 2009 COLONOSCOPY 2009 COLORECTAL CANCER SCREENING 2009 FIT TEST 2009 FOBT 2009 SIGMOIDOSCOPY 2009 VIRTUAL COLONOSCOPY 2009 PNEUMOCOCCAL VACCINES (50+ years) (1 of 1 - PCV) 2014 ZOSTER VACCINES (1 of 2) 2014 INFLUENZA VACCINE (#1) 2025 COVID-19 VACCINE ( - 2024-2 6 season) 2025 11/11/2020, 10/27/2020, 10/06/2020 Adult Td,Tdap Booster 12/17/2030 12/17/2020 RSV VACCINE (1 - 1-dose 75+ series) 2039 SMOKING STATUS SCREENING (On ce After 26 Yrs) Completed 04/15/2024 HEPATITIS A VACCINES Aged Out No long er eligible based on patient's age to complete this topic HIB VACCINES Aged Out No longer eligi ble based on patient's age to complete this topic MENINGOCOCCAL VACCINES (ACWY) Aged Out No longer eligible based on patient's age to complete this topic MENINGOCOCCAL VACCINES (B) Aged Out N o longer eligible based on patient's age to complete this topic Medical Devices Not on file Insurance [facility] Care Teams Fur Examiner Relationship Specialty Start Date End Date Vinny Avila MD [address] [place] [address] [place] [address] PCP - General Internal Medicine 04/15/24 Additional Source Comments The information contained in this document represents components of the legal health record. It is not the complete legal health record[facility]
--- OUTSIDE RECORDS SUMMARY | 2025-04-09 07:57 | XMS_ITS | Encounter Summary ---
Author Organization [facility] Address [address] [facility] [address] [place] [address] Phone Care Team Providers Care Operations Representative Name Role Phone Vinny Avila MD Primary Care Provider [phone] Encounter Details Date Type Department Care Team (Late st Contact Info) Description 05/09/2024 Procedure Pass OR Admitting Dept - Virtual Department [address] [place] [address] Social History Tobacco Use Types Packs/Day Years Used Date Smoking Tobacco: Never Smokeless Tobacco: Never Alcohol Use Standard Drinks/Week Comments Yes 0 [...] on filedocumented in this encounter Care Teams Operations Representative Relationship Specialty Start Date End Date Vinny Avila MD [address] [place] [address] [place] [address] PCP - General Internal Medicine 04/15/24 documented as of this encounter Additional Source Comments The information contained in this document represents components of the legal health record. It is not the complete legal health record.[facility]
[2025-04-09 11:38] LABS: MANUAL DIFF FLAG NO
[2025-04-09 11:39] LABS: Hematocrit 42.2 % (37.0-47.0); Hemoglobin 13.2 g/dl (12.0-16.0); Imm Gran Abs Auto 0.01 X10*3/uL (0.00-0.03); Imm Gran Pct Auto 0.1 % (0.0-0.4); Lymphocytes Absolute Auto 3.4 X10*3/uL (1.2-4.9); Mean Corpuscular HGB Conc 31.3 g/dl (31.0-35.0); Mean Corpuscular Hemoglobin 26.2 pg (27.0-33.0); Mean Corpuscular Volume 83.7 fL (80.0-98.0); NRBC Abs Auto 0.000 X10*3/uL (0.0-0.012); NRBC Pct Auto 0.0 /100WBC (0.0-0.2); Platelet Count 325 X10*3/uL (160-400); Red Blood Count 5.04 X10*6/uL (4.20-5.50); White Blood Count 7.3 X10*3/uL (4.8-10.8)
[2025-04-09 12:00] LABS: Alanine Aminotransferase 28 U/L (0-31); Albumin Level 4.6 g/dL (3.5-5.0); Alkaline Phosphatase 68 U/L (39-117); Anion Gap 11 (12-20); Aspartate Amino Transferase 33 U/L (5-31); Blood Urea Nitrogen 15 mg/dL (9-16); Calcium 9.3 mg/dL (8.4-10.2); Carbon Dioxide 30 mmol/L (22-29); Chloride 104 mmol/L (96-108); Cholesterol 165 mg/dL (<200); Estimated Glomerular Filt Rate > 60; HDL Cholesterol 43 mg/dL (>40); Potassium 3.9 mmol/L (3.3-5.1); Sodium 141 mmol/L (135-145); Total Protein 7.1 g/dL (6.5-8.0); Triglycerides 227 mg/dL (<150); Uric Acid 7.8 mg/dL (2.4-5.7)
[2025-04-09 12:10] LABS: Appearance Urine Clear; Glucose Urine UA Negative (Negative); PH 7.0 (5.0-9.0); Specific Gravity - Urine 1.025 (1.005-1.025)
== END 2025-04-09 07:52 | disposition home or self-care (01) ==
LOC: HO.WFDLDS 07:51
PROVIDERS: Visit Provider Internal Medicine
DX: E79.0 Hyperuricemia without signs of inflammatory arthritis and tophaceous disease (principal); R30.0 Dysuria; E55.9 Vitamin D deficiency, unspecified; E78.00 Pure hypercholesterolemia, unspecified; D64.9 Anemia, unspecified
CPT/HCPCS: 36415; 80053; 80061; 81003; 82306; 84550; 85025

== ENCOUNTER 2025-04-14 17:00 | Outpatient (AMB) | payer OTHER, SELFPAY ==
--- OUTSIDE RECORDS SUMMARY | 2024-04-09 06:30 | XMS_ITS ---
Author Organization [facility] Address [address] [place] [address] Care Team Providers Care Claim Clerk Name Role Phone Austin ZHANG, [place] Primary Care Provider Unava Hernando Aldana Unavailable [phone] REASON FOR VISIT screening Problems Problem Type SNOMED Code ICD Code Onset Dates Problem Status W/U Status Risk Notes Problem Diverticular disease of colon (534988979) Diverticulosis of large intestine without perforation or abscess without bleeding (K57.30) Active confirmed Encounters Encounter Location Date Provider Diagnosis [facility] Out[place] [address] [place] [phone] 04/09/2024 Hernando Nguyễn Colon cancer scree justice [...] * BILLY NIETODOB: 5 (59 yo F)Acc No.[id number]:04/09/2024 COLON WITH MAC Patient: Rick ASTERKENNETH ETIENNEIQUE Provider: Shaina Nguyễn MD :1965 A ge:58 Y S ex:Female Date:04/09/2024 Address:[address] [place], [place] [phone] Pcp:Vinny Avila MD Subjective: * Chief Complaints: [...] 0 04/09/2024 Generated for Ramona clarke/Megha/Gurdeepitting on: 04/14/2025 06:45 PM EDT
[2025-04-14 17:06] VITALS: BP 128/72; PULSE 69; RESP 18; TEMP 36.3; O2SAT 97; BMI 35.8
--- NOTE | 2025-04-14 17:06 | A.OFFPC_ITS ---
Vital Signs 04/14/25 17:06 Height 5 ft 5 in Weight 215 lb 2 oz BMI 35.8 BP 128/72 Blood Pressure Location Lt brachial Position Sitting Respiration 18 Pulse 69 Pulse Source Pulse Oximeter Temp 97.3 F Temp Source Temporal Artery Scan Pulse Oximetry (%) 97 Oxygen Delivery Method Room Air Intake Visit Reasons: annual exam Manager Multicultural Required: No Accompanied by: Self / Same As Patient Allergies adhesive tape Allergy (Intermediate, Verified 04/14/25 17:21) Skin Blisters erythromycin base (ERYTHROMYCIN BASE) Allergy (Intermediate, Verified 04/14/25 17:21) Nausea and Vomiting latex (LATEX) Allergy (Intermediate, Verified 04/14/25 17:21) Rash meperidine (From DEMEROL) Allergy (Intermediate, Verified 04/14/25 17:21) Palpitations statin Allergy (Intermediate, Uncoded 04/14/25 17:21) joint pains, lethargic Medication List - Last Reconciled 04/14/25 by Vinny Avila MD aspirin (Adult Aspirin Regimen) 81 mg PO .11PM evolocumab (Repatha SureClick) 140 mg subcut Q2W hydrochlorothiazide 12.5 mg (1/2 x 25 mg) PO DAILY 90 days metoprolol tartrate 50 mg PO .11AM+11PM multivitamin (Daily Multi-Vitamin tablet) 1 tab PO DAILY pantoprazole 40 mg PO DAILY 90 days Tobacco use date assessed: 04/14/25 Dental Screening Dental Screen Date: 04/14/25 Did you have a dental visit in the last 12 months?: Yes Did you have a dental problem in the last 6 months where you did not have access to dental care?: No Was dental information given to patient?: Patient has dentist HPI annual exam HPI Details Patient comes in today for her annual physical examination States that she currently feels okay She denies any headaches or dizziness Denies any chest pains, no SOB No nausea/vomiting, no abdominal pain No change in bowel habits noted She denies any acute urinary symptoms She had her follow up labs done a few days ago - to discuss her results She had her repeat colonoscopy done with Dr. Nguyễn last year on 04/09/2024 - polyp removed was hyperplastic so her next colonoscopy will be in 10 years (2033) Her annual mammogram was last done at [facility] about a year ago in April 2024 and she is scheduled for this year's annual mammogram next month (April 2025) She is also up-to-date with her yearly gynecology exam/pap smear [facility] Medical History Cervical spondylosis Coronary artery disease GERD (gastroesophageal reflux disease) RUQ abdominal pain Pure hypercholesterolemia Lumbar spinal stenosis Benign essential hypertension Obesity (BMI 30-39.9) Osteoarthritis Hypertension, essential Surgical History (Updated 04/14/25 @ 17:26 by Vinny Avila MD) Hx of colonoscopy Hx of heart artery stent (~05/18/22) S/P total left hip arthroplasty (~01/21/21) S/P total right hip arthroplasty (~09/2020) Hx of lumbosacral spine surgery (~2018) History of partial hysterectomy History of knee surgery History of ear surgery History of tonsillectomy History of hip surgery History of section Family History Father CVD (cardiovascular disease) History of quadruple bypass Mother CVD (cardiovascular disease) Melanoma Brother No problems noted. Brother No problems noted. Son No problems noted. Son No problems noted. Paternal Aunt Breast cancer Social History Household Members: Family Caregiver staying overnight: No Housing: House Are you a primary primary care physician to a significant other at home: No Do you presently have visiting nurse or other home services: No 75 years or older and lives alone: No Alcohol intake: current Alcohol intake frequency: holidays/special occasions only Patient Tobacco Use Status: Never used Tobacco e-Cigarette/Vaping Use: Never Used Second Hand Smoke Exposure: No service: No Current occupational status: employed Current occupational exposures/hazards: No Cognitive needs: No Hearing needs: No Vision needs: Yes Questionnaire PHQ-9 Over the last 2 weeks, how often have you been bothered by any of the following problems? 1. Little interest or pleasure in doing things: not at all 2. Feeling down, depressed, or hopeless: not at all 3. Trouble falling or staying asleep, or sleeping too much: several days 4. Feeling tired or having little energy: several days 5. Poor appetite or overeating: not at all 6. Feeling bad about yourself - or that you are a failure or have let yourself or your family down: not at all 7. Trouble concentrating on things, such as reading the newspaper or watching television: not at all 8. Moving or speaking so slowly that other people could have noticed. Or the opposite - being so fidgety or restless that you have been moving around a lot more than usual: not at all 9. Thoughts that you would be better off or of hurting yourself in some way: not at all Total score: 2 Depression Screening Interpretation: Negative Depression Screening Done: Yes 87818 - PHQ-9 Billing: Yes Source: Developed by Drs. Hernando Lilly, Macy Sousa, Stevie Sloan and colleagues, with an educational joseline from [employer]. Thrive Questionnaire Date Thrive assessed: 04/14/25 I am a: Patient What is your living situation today?: I have a steady place to live Within the past 12 months, did the food you bought not last and you didn't have the money to get more?: Never true Within the past 12 months, did you worry whether your food would run out before you got money to buy more?: Never true Do you have trouble paying for medicines?: I choose not to answer this question Do you have trouble getting transportation to medical appointments?: No Do you have trouble paying your heating and electricity bill?: No Do you have trouble taking care of your child, family member or friend?: No Do you have trouble with day-to-day activities such as bathing, preparing meals, shopping, managing finances, etc.?: No Are you currently unemployed and looking for a job?: I choose not to answer this question Are you interested in more education?: No Please select the resources that you would like help with: None Currently or been in a relationship where the following occur: No concerns reported THRIVE Score: 0 AUDIT C Alcohol Use Questionnaire (AUDIT-C) 1. How often do you have a drink containing alcohol?: Monthly or less 2. How many drinks containing alcohol do you have on a typical day when you are drinking?: 1 or 2 3. How often do you have six or more drinks on one occasion?: Never Total Score: 1 Score Reviewed/Action Taken: Yes YARELI-7 AMB Questionnaire YARELI-7 Date YARELI - 7 assessed: 11/10/24 Feeling nervous, anxious, or on edge: 0 = Not at all Not being able to stop or control worryin = Not at all Worrying too much about different things: 1 = Several days Trouble relaxin = Not at all Being so restless that it is hard to sit still: 0 = Not at all Becoming easily annoyed or irritable: 0 = Not at all Feeling afraid as if something awful might happen: 0 = Not at all Total YARELI-7 score (0-4 normal; 5-9 mild; 10-14 moderate; 15-21 severe): 1 Source: Developed by Drs. Hernando Lilly, Macy Sousa, Stevie Sloan and colleagues, with an educational joseline from [employer]. Review of Systems Const Denies chills, Denies fatigue, Denies fever(s) and Denies headache(s) Eyes Denies blurry vision, Denies change in vision, Denies irritation and Denies itchy eyes ENT Denies dysphagia, Denies dizziness, Denies otalgia, Denies headache(s), Denies nasal congestion, Reports neck pain, Denies odynophagia, Denies sinus pain and Denies sore throat Card Denies chest pain, Denies palpitations and Denies dyspnea Resp Denies chest congestion, Denies cough, Denies dyspnea and Denies wheezing GI Denies abdominal pain, Denies constipation, Denies dysphagia, Denies heartburn, Denies diarrhea, Denies nausea, Denies odynophagia and Denies vomiting Denies difficulty voiding, Denies nocturia, Denies dysuria and Denies urinary urgency Musc Reports back pain (on and off), Denies arthralgias and Reports neck pain Skin/Breast Denies lesions and Denies rash Neuro Denies dizziness and Denies headache(s) Psych Denies anxiety and Denies depression Endo Denies fatigue and Denies palpitations Live/Lymph Denies easy bruising Aller/Immun Denies itchy eyes and Denies wheezing Physical exam (Primary Care) Vital Signs: Last Vital Signs Temp 97.3 F 04/14/25 17:06 Pulse 69 04/14/25 17:06 Resp 18 04/14/25 17:06 BP 128/72 04/14/25 17:06 Pulse Ox 97 04/14/25 17:06 Oxygen Delivery Method Room Air 04/14/25 17:06 BMI result Body Mass Index 35.8 Tobacco/Smoking Status: Tobacco use Status Tobacco use date assessed 04/14/25 04/14/25 17:07 Patient Tobacco Use Status Never used Tobacco 04/14/25 17:07 e-Cigarette/Vaping Use Never Used 04/14/25 17:07 PHQ-9: PHQ-9 Score PHQ-9: Total score 2 04/14/25 22:00 Depression Screening Interpretation: Negative Thrive Assessment: Date of Thrive Assessment Date Thrive assessed 04/14/25 04/14/25 17:27 Currently or been in a relationship where the following occur: No concerns reported Const General: no acute distress and alert Orientation/consciousness: patient oriented x3 HENMT Head: Yes normocephalic and Yes atraumatic Ears: TM's normal bilaterally and EAC's normal General nose exam: No nasal discharge present Face and sinus: Yes normal facial exam and Yes sinuses nontender Teeth and gingiva: dentition normal Throat: Yes posterior oropharynx normal and Yes tonsils normal (no TP congestion) Eyes Eyelids: Yes eyelids normal Conjunctivae: conjunctivae normal Pupils: Equal, round and reactive pupils present EOM: EOMs intact bilaterally Neck Neck: Yes supple and No lymphadenopathy Thyroid: Thyroid normal Resp Auscultation: clear to auscultation bilaterally, no rales and no wheezes Cardio Rate: regular rate Rhythm: regular rhythm Heart sounds: no murmurs GI Palpation (GI): Soft to palpation and nontender Auscultation: normal bowel sounds General: Yes no CVA tenderness Back/Spine/Pelvis Back: no CVA tenderness Cervical Spine: Cervical spine tenderness Thoracic/Lumbar Spine: lumbar spinal tenderness Skin Lesions: no lesions Rashes: no rashes Neuro General: patient oriented x3, moves all extremities, no focal motor deficits and CN's II-XI intact bilaterally Cranial nerves: Yes Equal, round and reactive pupils present Cognition (Neuro): normal cognition Gait exam (Neuro): Normal gait present Extrem General: Yes no clubbing, cyanosis or edema Results Reviewed Results Reviewed: Laboratory Tests 04/09/25 04/09/25 07:54 08:04 WBC 7.3 Hgb 13.2 Hct 42.2 Plt Count 325 Sodium 141 Potassium 3.9 Creatinine 0.79 Estimated GFR > 60 Fasting Glucose 89 Uric Acid 7.8 H Calcium 9.3 AST 33 H ALT 28 Triglycerides 227 H Cholesterol 165 LDL Cholesterol, Calc 77 HDL Cholesterol 43 25-OH Vitamin D Total 68.9 Ur Specific [place] 1.025 Urine Protein Negative Urine Glucose (UA) Negative Urine Blood Negative Urine Nitrite Negative Ur Leukocyte Esterase Negative Coding Level of Care Code Est Pt Prev Care 40-64y(92111) Diagnoses Annual physical exam Z00.00 Coronary artery disease involving [place] coronary artery of [place] heart with angina pectoris I25.119 Coronary Disease-Associated Artery/Lesion type: [place] artery [place] vs. transplanted heart: [place] heart Associated angina: with unspecified form of angina Benign essential hypertension I10 Pure hypercholesterolemia E78.00 Lymphocytosis D72.820 Elevated rheumatoid factor R76.8 Vitamin D deficiency E55.9 Left upper quadrant abdominal pain R10.12 Primary osteoarthritis, unspecified site M19.91 Osteoarthritis location: unspecified site Osteoarthritis type: primary Spinal stenosis of lumbar region without neurogenic claudication M48.061 Neurogenic claudication status: without neurogenic claudication Cervical spondylosis M47.812 Pain and swelling of left lower extremity M79.605; M79.89 Hyperuricemia E79.0 Gastroesophageal reflux disease without esophagitis K21.9 Esophagitis presence: without esophagitis Obesity (BMI 30-39.9) E66.9 Additional Codes PHQ-9 - 35337 - PHQ-9 Billing: Yes ([id number]) Assessment & Plan Assessment & Plan (1) Annual physical exam: Code(s): Z00.00 - Encounter for general adult medical examination without abnormal findings Category: Medical Plan: Results of her labs done last week reviewed and discussed with patient She had her repeat colonoscopy done with Dr. Nguyễn last year on 04/09/2024 - polyp removed was hyperplastic so her next colonoscopy will be in 10 years (2033) Her annual mammogram was last done at [facility] about a year ago in April 2024 and she is scheduled for this year's annual mammogram next month (April 2025) She is also up-to-date with her yearly gynecology exam/pap smear (2) Coronary artery disease: Comment: S/P PCI with stenting (FABRIZIO) of the RCA on 05/18/2022 Code(s): I25.10 - Atherosclerotic heart disease of [place] coronary artery without angina pectoris Category: Medical Qualifiers: Coronary Disease-Associated Artery/Lesion type: [place] artery [place] vs. transplanted heart: [place] heart Associated angina: with unspecified form of angina Qualified Code(s): I25.119 - Atherosclerotic heart disease of [place] coronary artery with unspecified angina pectoris Plan: S/P PCI with stenting (FABRIZIO) of the RCA on 05/18/22; completed cardiac rehab ear lier last year (2022) Continue Aspirin 81 mg QD; Brilinta was discontinued after 1 year of Tx Will try switching her Metoprolol from Metoprolol tartrate 50 mg BID to Metoprolol succinate ER 50 mg QD Will also try discontinuing her HCTZ 25 mg 1/2 tablet QD Patient is instructed to cotinue monitoring her blood pressure closely, especially after the changes we made to her blood pressure medication regimen today Follow up with cardiology (Dr. Debbie Leal) at [facility] as scheduled (3) Benign essential hypertension: Code(s): I10 - Essential (primary) hypertension Category: Medical Plan: Reinforced low sodium diet - goal is systolic BP of 120 mm or less We are switching her over to Metoprolol ER 50 mg QD from her previous Metoprolol tartrate 50 mg BID We will also be trying to discontinue her HCTZ 25 mg 1/2 tablet (12.5 mg) QD She is reminded to continue monitoring her BP regularly (4) Pure hypercholesterolemia: Comment: Unable to tolerate statins in the past Code(s): E78.00 - Pure hypercholesterolemia, unspecified Category: Medical Plan: Results of her labs done last week reviewed and discussed with patient Reinforced low cholesterol diet Continue Repatha 140 mg SQ every 2 weeks - she has not been able to tolerate Ezetimibe and multiple statins in the past due to myalgia Will have patient recheck her labs and fasting lipids in 6 months for follow-up (5) Lymphocytosis: Code(s): D72.820 - Lymphocytosis (symptomatic) Category: Medical Plan: She has been referred to and seen by Dr. 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 Garcia once or twice a year for continuing surveillance to monitor for any progression of her condition (6) Elevated rheumatoid factor: Code(s): R76.8 - Other specified abnormal immunological findings in serum Category: Medical Plan: Her rheumatoid factor was elevated but her CCP Ab was normal and her ESR and CRP levels were also low when previously checked Patient was reassured that she DOES NOT have any evidence of RA at the time and we will continue to monitor these regularly/yearly for any changes Will also consider referral to rheumatology for further evaluation if anything changes (7) Vitamin D deficiency: Code(s): E55.9 - Vitamin D deficiency, unspecified Category: Medical Plan: Continue Vitamin D3 2000 units QD (8) Left upper quadrant abdominal pain: Code(s): R10.12 - Left upper quadrant pain Category: Medical Plan: Resolved - her abdominal US done back in November 2024 came back completely normal (9) Osteoarthritis: Comment: S/P bilateral hip arthroplasty at [facility] in [place], [place] Code(s): M19.90 - Unspecified osteoarthritis, unspecified site Category: Medical Qualifiers: Osteoarthritis location: unspecified site Osteoarthritis type: primary Qualified Code(s): M19.91 - Primary osteoarthritis, unspecified site Plan: She was taken off Celecoxib 200 mg QD after her PCI and has been advised by cardiology to avoid all NSAIDs completely as NSAIDs can raise her cardiac risks She is now just taking OTC Tylenol PRN for pain (10) Lumbar spinal stenosis: Comment: S/P laminectomy at [facility] in [place], [place] in 2019 Code(s): M48.061 - Spinal stenosis, lumbar region without neurogenic claudication Category: Medical Qualifiers: Neurogenic claudication status: without neurogenic claudication Qualified Code(s): M48.061 - Spinal stenosis, lumbar region without neurogenic claudication Plan: Reinforced activity and weight-lifting restrictions (11) Cervical spondylosis: Code(s): M47.812 - Spondylosis without myelopathy or radiculopathy, cervical region Category: Medical Plan: Her cervical spine x-rays done in May 2023 revealed (+) grade 1 retrolisthesis and degenerative spondylosis of the C5-C6, with C5 impingement She was seen by orthopedics (Dr. Nixon Good) in [place] who recommended physical therapy and gentle cervical traction, which patient is still doing She had a cervical spine MRI done in [place] back on 04/15/2024 for further evaluation Follow up with orthopedics as scheduled (12) Pain and swelling of left lower extremity: Code(s): M79.605 - Pain in left leg; M79.89 - Other specified soft tissue disorders Category: Medical Plan: X-rays of the left foot done back in October 2024 revealed (+) degenerative change of the tibiotalar joint and small plantar calcaneal spur If her foot symptoms persist or get worse, we will consider referring her to Podiatry (13) Hyperuricemia: Code(s): E79.0 - Hyperuricemia without signs of inflammatory arthritis and tophaceous disease Category: Medical Plan: Patient's serum uric acid was still slightly elevated at 7.8 on her recent labs but she remains asymptomatic with no acute joint flares Reinforced low purine diet Will continue to monitor her serum uric acid level regularly (14) GERD (gastroesophageal reflux disease): Code(s): K21.9 - Gastro-esophageal reflux disease without esophagitis Category: Medical Qualifiers: Esophagitis presence: without esophagitis Qualified Code(s): K21.9 - Gastro-esophageal reflux disease without esophagitis Plan: Dietary restrictions reinforced Continue Pantoprazole 40 mg QD She previously stopped taking her Rx for a while but is now back on Pantoprazole 40 daily She is advised again that if her symptoms persist despite Rx and dietary restri ctions, will need to consider referring her to GI for further evaluation and possible EGD (15) Obesity (BMI 30-39.9): Code(s): E66.9 - Obesity, unspecified Category: Medical Plan: Reinforced diet/exercise as tolerated/lose weight Plan Follow-up in 6 months Orders: Orders Complete Blood Count Auto Diff 6 Months D64.9 - Anemia, unspecified UA CC w/rflx Micro + Cult 6 Months R30.0 - Dysuria Vitamin B12 and Folate 6 Months E53.8 - Deficiency of other specified B group vitamins Comprehensive [place]. Panel Fast 6 Months E78.00 - Pure hypercholesterolemia, unspecified Lipid Panel 6 Months E78.00 - Pure hypercholesterolemia, unspecified TSH reflex Free T4 6 Months E78.00 - Pure hypercholesterolemia, unspecified Vitamin D 25-OH Total 6 Months E55.9 - Vitamin D deficiency, unspecified Uric Acid 6 Months E79.0 - Hyperuricemia without signs of inflammatory arthritis and tophaceous disease Medications: New metoprolol succinate ER 50 mg PO DAILY 90 tabs 1RF 90 days Discontinued hydrochlorothiazide Discontinued Reason: Patient Completed Course 12.5 mg (1/2 x 25 mg) PO DAILY 90 days 45 tabs 1RF
--- OUTSIDE RECORDS SUMMARY | 2025-04-14 18:45 | XMS_ITS | Encounter Summary ---
Author Organization [facility] Address [address] [place] [address] Care Team Providers Care Internal Specialist Name Role Phone Clement Tretn Primary Care Provider [phone] Vinny Avila MD Primary Care Provider [phone] Encounter Details Date Type Department Care Team (Late st Contact Info) Description 01/22/2019 Orders Only [facility] Pre-Admission Testing [address] [place] [id number] Ann Christina NP Social History Tobacco Use [...] of this encounter Procedures * Due to [place] state law, this organization might not be [...] in this encounter Results * Due to [place] state law, this organization might not be sharing negative HIV tests. * MRSA CULTURE SCREEN, NASAL ONLY (01/22/2019 11:38 AM EDT) Pathologist [facility] Methicillin Resistant Staphylococcus Aureus Screen SEE NOTE [facility] Comment: MRSA CULTURE SCREEN MICRO NUMBER: [id number] TEST STATUS: FINAL SPECIMEN SOURCE: NOT GIVEN SPECIMEN QUALITY: ADEQUATE RESULT: No methicillin resistant Staphylococcus aureus (MRSA) isolated. 01/22/2019 11:3 8 AM EDT 01/22/2019 9:19 PM EDT Narrative Resulting Agency Comment [id number] Ann Christina ENVIRONMENTAL FIELD OFFICE MANAGER LABORATORY Final Res ult [facility] [address] [place] [address] * EKG-TO BE READ & BILLED BY [...] EDT 01/23/2019 12:06 AM EDT Ann Christina ENVIRONMENTAL FIELD OFFICE MANAGER CARDIOVASCULAR-WITH INBSK T RTG Final Result Performing Organization Address City/[facility]/ZIP Co de Phone Number [facility] * (ABNORMAL) VITAMIN D, 25-HYDROXY, TOTAL, IMMUNOASSAY (01/22/2019 10:36 AM EDT) Vitamin D, 25-OH, Total 26(L) 30 - 100 ng/mL [facility] Comment: Vitamin D Status 25-OH Vitamin D: Deficiency: <20 ng/mL Insufficiency: 20 - 29 ng/mL Optimal: > or = 30 ng/mL For 25-OH Vitamin D testing on patients on D2-supplementation and patients for whom quantitation of D2 and D3 fractions is required, the QuestAssureD(TM) 25-OH VIT D, (D2,D3), LC/MS/MS is recommended: order code 70957 (patients >2yrs). For more information on this test, go to: http://education.[employer]/faq/AIY161 (This link is being provided for informational/educational purposes only.) 01/22/2019 10:3 6 AM EDT 01/22/2019 9:38 PM EDT Narrative Resulting Agency Comment [id number] Ann Christina ENVIRONMENTAL FIELD OFFICE MANAGER LABORATORY Final Res ult Performing Organization Address City/[facility]/ZIP Co de Phone Number [facility] [address] [place] [place] [address] * (ABNORMAL) CBC INCLUDES DIFFERENTIAL AND PLATELET [...] 9:38 PM EDT Narrative Resulting Agency Comment [id number] Ann Christina ENVIRONMENTAL FIELD OFFICE MANAGER LAB SAME DAY RESULT Final Result Performing Organization Address City/State/[facility] Co de Phone Number [facility] [address] [place] [address] * (ABNORMAL) BASIC METABOLIC PANEL WITH (GFR) (01/22/2019 10:36 AM EDT) Glucose 88 65 - 99 mg/dL [facility] Comment:Fasting reference in terval Urea Nitrogen Blood (BUN) 17 7 - 25 mg/dL [facility] Creatinine 0.76 0.50 - 1.05 mg/dL [facility] Comment: For patients >49 years of age, the reference limit for Creatinine is approximately 13% higher for people identified as -[place]auritan[place]. EGFR 89 > OR = 60 mL/min/1 [...] needs for GFR calculation. Resulting Agency Comment [id number] Ann Christina ENVIRONMENTAL FIELD OFFICE MANAGER LABORATORY Final Res ult [facility] [address] [place] [address] documented in this encounter Visit Diagnoses Diagnosis Preop examination Preoperative examination, unspecified Low back pain of over 3 months duration Lumbosacral stenosis with neurogenic claudication Spinal stenosis, lumbar region, with neurogenic claudication Essential hypertension Latex allergy Allergy to latex Low vitamin D level Mixed hyperlipidemia documented in this encounter Care Teams Internal Specialist Relationship Specialty Start Date End Date Clement Trent [facility] [address] [place] [id number] PCP - General Internal Medicine 10/24/18 06/04/23 Vinny Avila MD [address] [place] [address] PCP - General Internal Medicine 06/05/23 documented as of this encounter
--- OUTSIDE RECORDS SUMMARY | 2025-04-14 18:46 | XMS_ITS | Encounter Summary ---
Author Organization [facility] Address [address] [place] [address] Care Team Providers Care Varnisher Apprentice Name Role Phone Miley Clement J Primary Care Provider [phone] Vinny Avila MD Primary Care Provider [phone] Encounter Details Date Type Department Care Team (Late st Contact Info) Description 02/21/2019 Orders Only [facility] Orthopedic Surgery [address] [address] Nixon Good MD [address] [place] [id number] Social History Tobacco Use Types Packs/Day Years [...] unspecified documented in this encounter Care Teams Varnisher Apprentice Relationship Specialty Start Date End Date [facility]. [address] [place] [phone] PCP - General Internal Medicine 10/24/18 06/04/23 Vinny Avila MD [address] [place] [address] PCP - General Internal Medicine 06/05/23 documented as of this encounter
--- OUTSIDE RECORDS SUMMARY | 2025-04-14 18:46 | XMS_ITS | Continuity of Care Document ---
Author Organization [facility] Address [address] [place] [address] Care Team Providers Care Electromagnet Crane Operator Name Role Phone Vinny Avila MD Primary Care Provider [phone] Encounters Date Type Department Care Team Description 05/05/2024 3:20 PM EDT Office Visit [facility] Orthopedic Surgery [address] [place] [address] Nixon Good MD Numbness and tingling in left hand (Primary Dx); Chronic neck pain; Foraminal stenosis of cervical region; Left wrist pain 04/15/2024 7:45 PM EDT Radiology [facility]. Magnetic Resonance Imaging [address] [place] [address] Radiculitis; Chronic neck pain; Numbness and tingling in left hand 03/21/2024 Orders Only [facility] Orthopedic Surgery Suite [facility] [place] [address] [facility] [address] [place] [address] Nixon Good MD 03/20/2024 Telephone [facility] Orthopedic Surgery [address] [facility] [address] [place] [address] Nixon Good MD Imaging Study; Referrals 02/18/2024 Orders Only [facility] Orthopedic Surgery [address] [address] Nixon Good MD 02/18/2024 Telephone [facility] Surgery [address] [facility] [address] [place] [address] Nixon Good MD Physical Therapy 09/10/2023 3:30 PM EST Minor Procedure/Test [facility] [address] [facility] [address] [place] [address] Kika Ferguson MD Left arm pain (Primary Dx); Numbness and tingling of left thumb 06/05/2023 11:00 AM EST Radiology [facility] [address] [facility] [address] [place] [address] Cervical spine pain 06/05/2023 11:40 AM EST Consult (Initial) [facility] Surgery [address] [facility] [address] [place] [address] Nixon Good MD Radiculitis (Primary Dx); Chronic neck pain; Numbness and tingling in left hand 06/04/2023 Orders Only [facility] Orthopedic Surgery [address] [facility] [address] [place] [address] Nixon Good MD 06/30/2020 Travel 06/30/2020 10:15 PM EST Radiology [facility]. Magnetic Resonance Imaging [address] [place] [address] Right hip pain 06/23/2020 Travel 11/04/2019 8:00 AM EDT Office Visit [facility] Surgery [address] [facility] [address] [place] [address] Nixon Good MD Low back pain of over 3 months duration (Primary Dx); Shoulder pain, unspecified chronicity, unspecified laterality 04/21/2019 7:35 AM EDT Radiology [facility] [address] [facility] [address] [place] [address] Low back pain of over 3 months duration 04/21/2019 8:00 AM EDT Office Visit [facility] Orth[facility] Surgery [address] [facility] [address] [place] [address] Nixon Good MD Low back pain of over 3 months duration (Primary Dx); Facet arthritis of lumbar region 03/21/2019 Telephone [facility] Orth[facility] Surgery [address] [facility] [address] [place] [address] Nixon Good MD Letter/form Request 02/24/2019 9:50 AM EDT Radiology [facility] [address] [facility] [address] [place] [address] Low back pain, unspecified back pain laterality, unspecified chronicity, with sciatica presence unspecified 02/24/2019 9:30 AM EDT Office Visit [facility] [address] [facility] [address] [place] [address] Nixon Good MD Low back pain of over 3 months duration (Primary Dx) 02/21/2019 Orders Only [facility] [address] [facility] [address] [place] [address] Nixon Good MD 02/12/2019 Telephone [facility] [address] 123 [facility] [address] [place] [address] Nixon Good MD [facility] Communication (rash) 02/11/2019 Orders Only [facility] Orthopedic Surgery [address] [facility] [address] [place] [address] Nixon Good MD Medications 02/06/2019 Minor Procedure/Test NON [facility] [address] [place] [address] Nixon Good MD 02/06/2019 Hospital/Inpatie nt NON [facility] [address] [place] [address] Nixon Good MD 01/30/2019 Orders Only NON [facility] [address] [place] [address] Nixon Good MD 01/22/2019 Orders Only [facility] Cardiology [address] [facility] [address] [place] [address] Santos Cast DO 01/22/2019 Orders Only [facility] Pre-Admission Testing [address] [place] [address] Ann Christina NP 01/22/2019 8:30 AM EDT Office Visit [facility] [address] [place] [address] Ann Christina NP Preop examination (Primary Dx); Low back pain of over 3 months duration; Lumbosacral stenosis with neurogenic claudication (HCC); Essential hypertension; Latex allergy; Low vitamin D level; Mixed hyperlipidemia 12/09/2018 8:10 AM EDT Office Visit [facility] Orthopedic Surgery [address] [place] [address] [address] [place] [address] Nixon Good MD Low back pain of over 3 months duration (Primary Dx); Facet arthritis of lumbar region; Foraminal stenosis of lumbar region; Lumbosacral stenosis with neurogenic claudication (HCC) 12/03/2018 7:45 AM EDT Radiology [facility]. Magnetic Resonance Imaging [address] [place] [address] Chronic bilateral low back pain with bilateral sciatica 11/12/2018 9:05 AM EDT Radiology [facility] [address] [place] [address] [place] [address] Low back pain of over 3 months duration; Facet arthritis of lumbar region; Foraminal stenosis of lumbar region; Chronic bilateral low back pain with bilateral sciatica 11/12/2018 8:20 AM EDT Consult (Initial) [facility] [address] [place] [address] [address] [place] [address] Nixon Good MD Low back pain of [...] mL, 11 Refills, Maintenance, 02/15/24 11:33:00 EDT, [facility], 165, cm, 11/14/23 8:48:00 EDT, [...] 12/17/2020 Social History Smoking Status as of 04/14/2025 Tobacco Use Types Packs/Day Years Used Date [...] Not on file Procedures * Due to [place] state law, this organization might not be [...] MRI SPINE 09/20/2017 Results * Due to [place] state law, this organization might not be [...] There is mild spinal cord compression with nkoagopc-ev-ppcpnc spinal canal narrowing. No altered spinal cord [...] cord. There is mild spinal cord compression uceqwdmrwbbd-mo-izlhob spinal canal narrowing. No altered spinal cord [...] MAX (02/07/2019 9:19 AM EDT) RADIOLOGY REPORT [facility] Department of Radiology [address] [place] [address], [address] Name: BILLY MICHELE : 63 Date of Service: 02/07/19 1018 Acct Number: [id number] Order Number: [id number] Location: [facility] Report Number: [id number] Service: REG [facility]/ Requesting Physician: Sean Goodwin Category: RADIOLOGY [facility] Exam: LUMBAR SPINE 2 OR 3 [...] and L3. No fracture or subluxation. 2. Whgt-fb-znedqpno multilevel degenerative changes of lower lumbar spine. Date/Time of Dictation: 02/07/19 1143 Clinical Nurse Specialist (if applicable): Lubna Hardign Approved By Attending Radiologist: Catherine Romano 02/07/19 1143 [facility] Department of Radiology [address] [place] [address], [address] [facility] Anatomical Region Laterality Modality Other 02/07/2019 9:19 AM EDT Narrative 02/07/2019 11:43 AM EDT Reason for Study/History: Department of Radiology TEST(S) PROCESSED BY [facility] XRAY us Unknown Provider [facility] IMAGING-[facility] Final Resul t * (ABNORMAL) CBC W/O DIFFERENTIAL (02/07/2019 5:41 AM EDT) WHITE BLOOD COUNT 11.8(H) 3.9 - 11.0 x1000/uL [facility] RBC 3.89 3.70 - 5.10 mil/ul [facility] Hemoglobin 10.4(L) 11.5 - 15.0 g/dL [facility] HCT (HEMATOCRIT) 32.3(L) 34.0 - 44.0 % [facility] MCV 83 80 - 100 fL [facility] MCH 27 27 - 33 pg [facility] MCHC 32 31 - 36 g/dL [facility] RDW 14.1 11.4 - 14.4 % [facility] PLATELETS 294 150 - 450 x1000/uL [facility] 02/07/2019 5:41 AM EDT 02/07/2019 5:41 AM EDT Nixon Good MD LABORATORY Final Result [facility] [address] [place] [address] * (ABNORMAL) BASIC METABOLIC PANEL (02/07/2019 5:41 AM EDT) Glucose 106(H) 65 - 99 mg/dL [facility] BUN 13 5 - 26 mg/dL [facility] CREATININE 0.77 0.5 - 1.5 mg/dL [facility] BUN/Creatinine Ratio 17 8 - 27 [facility] GLOM FILT RATE, EST 87.5 >59 mL/min [facility] IF -JORDON N 101.5 >59 mL/min [facility] SODIUM 141 134 - 144 mEq/L [facility] POTASSIUM 3.6 3.6 - 5.6 mEq/L [facility] CHLORIDE 106 96 - 109 mEq/L [facility] CARBON DIOXIDE 28 20 - 32 mEq/L [facility] ANION GAP 7.0(L) 8 - 15 [facility] CALCIUM 8.7 8.3 - 10.0 mg/dL [facility] 02/07/2019 5:41 AM EDT 02/07/2019 5:41 AM EDT Nixon Good MD LABORATORY Final Result [facility] [address] [place] [address] * OR IMAGING C-ARM (02/06/2019 9:34 AM EDT) RADIOLOGY REPORT [facility] Department of Radiology [address] [place] [address], [address] Name: BILLY MICHELE : 63 Date of Service: 02/06/199[address] Acct Number: [id number] Order Number: [id number] Location: [facility] Report Number: [id number] Service: REG [facility]/ Requesting Physician: Nixon Good MD ([facility]) Category: [...] for details. Date/Time of Dictation: 02/06/19 1219 Clinical Nurse Specialist (if applicable): Isaiah Echevarria Approved By Attending Radiologist: Catherine Romano 02/06/19 1219 [facility] Department of Radiology [address] [place] [address], [address] [facility] Anatomical Region Laterality Modality Other 02/06/2019 9:34 AM EDT Narrative 02/06/2019 12:19 PM EDT Reason for Study/History: Department of Radiology TEST(S) PROCESSED BY [facility] XRAY Nixon Good MD IMAGING-[facility] Final Result * UNSPECIFIED MAJOR PROCEDURE [...] L2-L3 microdiskectomy. ATTENDING SURGEON: Dr. Nixon Good. CANE FLUME WATCHER: Sean Goodwin PA-C. ANESTHESIA: GETA and 40 [...] was seen in the holding area at [facility]. The STOP sheet was completed [...] was brought to Operating Room 12 at [facility]. Successful general endotracheal anesthesia was [...] 10:32 A TT: 10:48 A Doc #: [id number] cc: Nixon Good MD Nixon Good MD PROCEDURES Final Result * BLOOD TYPE AND ANTIBODY SCREEN (01/30/2019 8:00 AM EDT) BLOOD GROUP ABO A [facility] RH-(D) Positive [facility] ANTIBODY SCREEN Negative Negative [facility] 01/30/2019 8:00 AM EDT 01/30/2019 8:00 AM EDT us Nixon Good MD LABORATORY Final Result Performing Organization Address City/[facility] Co de Phone Number [facility] [address] [place] [address] * MRSA CULTURE SCREEN, NASAL ONLY (01/22/2019 11:38 AM EDT) Pathologist [facility] Methicillin Resistant Staphylococcus Aureus Screen SEE NOTE [facility] Comment: MRSA CULTURE SCREEN MICRO NUMBER: [id number] TEST STATUS: FINAL SPECIMEN SOURCE: NOT GIVEN SPECIMEN QUALITY: ADEQUATE RESULT: No methicillin resistant Staphylococcus aureus (MRSA) isolated. 01/22/2019 11:3 8 AM EDT 01/22/2019 9:19 PM EDT Narrative Resulting Agency Comment [id number] us Ann Christina NP LABORATORY Final Res ult Performing Organization Address [facility] Co de Phone Number [facility] [address] [place] [address] * EKG-TO BE READ & BILLED BY [...] 9:38 PM EDT Narrative Resulting Agency Comment [id number] Ann Christina INFORMATION [facility] SAME DAY RESULT Final Result [facility] [address] [place] [address] * (ABNORMAL) VITAMIN D, 25-HYDROXY, TOTAL, IMMUNOASSAY [...] D, (D2,D3), LC/MS/MS is recommended: order code 59512 (patients >2yrs). For more information on this test, go to: http://education.CloudBilt/faq/LVB716 (This link is being provided for informational/educational purposes only.) 01/22/2019 10:3 6 AM EDT 01/22/2019 9:38 PM EDT Narrative Resulting Agency Comment [id number] us Ann Christina INFORMATION [facility] Final Res ult [facility] [address] [place] [address] * (ABNORMAL) BASIC METABOLIC PANEL WITH (GFR) (01/22/2019 10:36 AM EDT) Glucose 88 65 - 99 mg/dL [facility] Comment:Fasting reference in terval Urea Nitrogen Blood (BUN) 17 7 - 25 mg/dL [facility] Creatinine 0.76 0.50 - 1.05 mg/dL [facility] Comment: For patients >49 years of age, the reference limit for Creatinine is approximately 13% higher for people identified as -Algerian. EGFR 89 > OR = 60 mL/min/1 [...] needs for GFR calculation. Resulting Agency Comment [id number] us Ann Christina INFORMATION [facility] Final Res ult [facility] [address] [place] [address] * MRI LUMBAR SPINE W/O CONTRAST FC [...] Pain in joint, forearm 05/05/2024 Care Teams Electromagnet Crane Operator Relationship Specialty Start Date End Date Vinny Avila MD [address] [place] [address] PCP - General Internal Medicine 06/05/23
--- OUTSIDE RECORDS SUMMARY | 2025-04-14 18:46 | XMS_ITS | Encounter Summary ---
Author Organization [facility] Address [address] [place] [address] Care Team Providers Care Electric Tool Repairer Name Role Phone Vinny Avila MD Primary Care Provider [phone] Reason for Visit * Reason Comments Physical Therapy Encounter Details Date Type Department Care Team ([facility] st Contact Info) Description 02/18/2024 Telephone [facility] Orthopedic Surgery [address] [address] Nixon Good MD [address] [place] [address] Physical Therapy Social History Tobacco Use Types [...] a physical therapy order is faxed to [phone]. documented in this encounter Plan of Treatment Not on file documented as of this encounter Visit Diagnoses Not on filedocumented in this encounter Care Teams Electric Tool Repairer Relationship Specialty Start Date End Date Vinny Avila MD [address] [place] [address] PCP - General Internal Medicine 06/05/23 documented as of this encounter
--- OUTSIDE RECORDS SUMMARY | 2025-04-14 18:46 | XMS_ITS | Patient Health Record ---
Author Organization [facility] Address [address] [place] [address] Care Team Providers Care Casting Machine Set Up Operator Name Role Phone Austin ZHANG, Dagmar Primary Care Provider Hernando Lutz Unavailable [phone] Allergies Allergen (clinical drug ingredient) Drug/Non Drug Allergy documented on EMR Reaction Allergy Type Onset Date Status erythromycin Erythromycin Unknown Drug Allergy A ctive Latex Latex Unknown Allergy Active meperidine Demerol Unknown Drug Allergy Active Reason For Referral No Information Medications Medication [...] Problem Screening for malignant neoplasm of colon (590458970) Encounter for screening for malignant neoplasm of colon (Z12.11) Active confirmed Problem Pre-procedure evaluation check (630369072) Encounter for other preprocedural examination (Z01.818) Active confirmed Problem Diverticular disease of colon (749304596) Diverticulosis of large intestine without perforation or abscess without bleeding (K57.30) Active confirmed Plan Of Treatment Pending Test Test Name Order Date Pathology 04/09/2024 Future Test Test Name Order Date COLONOSCOPY 01/23/2024 Insurance Providers Payer Name Payer Address Payer Phone Subscriber Number Group Number Insured Name Patient Relationship to Insured Coverage Start Date Coverage End Date [facility] [employer] ([employer]) [address] [place] [address] [id number] BILLY NIETO Self - patient is the insured Medical (General) History Medical History History ICD Code HTN Hyperlipdiemia Negative screenng colonoscopy age 49 at [place] [address] 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 Leal-at [facility] Surgical History Surgery Date(Month/Year) Right knee 1983 Bilateral hip replacements 2020 Back surgery 2019 2 C-sections Partial hysterectomy
--- OUTSIDE RECORDS SUMMARY | 2025-04-14 18:46 | XMS_ITS | Encounter Summary ---
Author Organization [facility] Address [address] [place] [address] Phone Care Team Providers Care Yarn Dry Room Worker Name Role Phone Vinny Avila MD Primary Care Provider [phone] Encounter Details Date Type Department Care Team (Late st Contact Info) Description 05/09/2024 Procedure Pass OR Admitting Dept - Virtual Department [address] [place] [address] Social History Tobacco Use Types Packs/Day Years [...] on filedocumented in this encounter Care Teams Yarn Dry Room Worker Relationship Specialty Start Date End Date Vinny Avila MD [address] [place] [address] [place] [address] PCP - General Internal Medicine 04/15/24 documented as of this encounter Additional Source Comments The information contained in this document represents components of the legal health record. It is not the complete legal health record.[facility]
--- OUTSIDE RECORDS SUMMARY | 2025-04-14 18:46 | XMS_ITS | Clinical Summary ---
Author Organization [facility] Address [address] [facility] [address] [place] [address] Phone Care Team Providers Care Sheet Metal Production Worker Name Role Phone Vinny Avila MD Primary Care Provider [phone] [phone] Allergies Active Allergy Reactions Criticality Noted Date [...] topic Medical Devices Not on file Insurance [facility] CHO[facility] CHO[facility] CHO[facility] CHOICE [facility] CHOICE [facility] CHOICE Care Teams Sheet Metal Production Worker Relationship Specialty Start Date End Date Vinny Avila MD [address] [place] [address] [place] [address] PCP - General Internal Medicine 04/15/24 Additional Source Comments The information contained in this document represents components of the legal health record. It is not the complete legal health record.[facility]
--- OUTSIDE RECORDS SUMMARY | 2025-04-14 18:46 | XMS_ITS | Patient Health Record ---
Author Organization [facility] Address [address] [facility] [place] [address] Care Team Providers Care Client Services Manager Name Role Phone Austin ZHANG [place] Primary Care Provider Unava ilable Black, Soo Unavailable [phone] Allergies Allergen (clinical drug ingredient) Drug/Non Drug [...] W/U Status Risk Notes Problem Peroneal tendinitis (42456023) Peroneal tendinitis, left leg (M76.72) Active confirmed Problem Achilles bursitis (395844244) Achilles tendinitis of left lower extremity (M76.62) Active confirmed Problem Onychomycosis (209662459) Onychomycosis (B35.1) Active confirmed Problem Tinea pedis (3132122) Tinea pedis of both feet (B35.3) Active confirmed Problem Hypertrophy of bone of left foot (9984919951527973 0) Hypertrophy of bone of left foot (M89.372) Active confirmed Vital Signs Blood pressure diastolic 80 mm Hg 02/27/2025 Height 5ft 5in in 02/27/2025 Blood pressure systolic 120 mm Hg 02/27/2025 Weight 208 lbs 02/27/2025 BMI 34.61 kg/m2 02/27/2025 Encounters Encounter Location Date Provider Diagnosis [facility] [address] [address] 02/27/2025 Soo Black Pain in left foot [...] Of Treatment Next Appt Details Provider Name:Soo Teague Omar , 05/06/2025 09:00:00 AM, [address] [facility], [place], [address], Insurance Providers Payer Name Payer Address Payer Phone Subscriber Number Group Number Insured Name Patient Relationship to Insured Coverage Start Date Coverage End Date [facility] [address] [place], [place] [phone] [id number] Lorelei Michele Self - patient is [...]
== END 2025-04-14 17:57 | disposition home or self-care (01) ==
LOC: HO.HMCH 17:01
PROVIDERS: PCP Internal Medicine; Visit Provider Internal Medicine
DX: Z00.00 Encounter for general adult medical examination without abnormal findings (principal); I25.119 Atherosclerotic heart disease of native coronary artery with unspecified angina pectoris; E66.9 Obesity, unspecified; Z68.35 Body mass index [BMI] 35.0-35.9, adult; I10 Essential (primary) hypertension; E78.00 Pure hypercholesterolemia, unspecified; D72.820 Lymphocytosis (symptomatic); R76.8 Other specified abnormal immunological findings in serum; E55.9 Vitamin D deficiency, unspecified; R10.12 Left upper quadrant pain; M19.91 Primary osteoarthritis, unspecified site; M48.061 Spinal stenosis, lumbar region without neurogenic claudication

== ENCOUNTER → 2025-04-14 17:00 | Outpatient (BNVA) | payer OTHER, SELFPAY | PROVIDERS: PCP Internal Medicine; Visit Provider Internal Medicine | DX: Z00.00 Encounter for general adult medical examination without abnormal findings (principal); I25.119 Atherosclerotic heart disease of native coronary artery with unspecified angina pectoris; I10 Essential (primary) hypertension; E78.00 Pure hypercholesterolemia, unspecified; D72.820 Lymphocytosis (symptomatic); R76.8 Other specified abnormal immunological findings in serum; E55.9 Vitamin D deficiency, unspecified; R10.12 Left upper quadrant pain; M48.061 Spinal stenosis, lumbar region without neurogenic claudication; M47.812 Spondylosis without myelopathy or radiculopathy, cervical region; M79.605 Pain in left leg; M79.89 Other specified soft tissue disorders; E79.0 Hyperuricemia without signs of inflammatory arthritis and tophaceous disease; K21.9 Gastro-esophageal reflux disease without esophagitis; R30.0 Dysuria; D64.9 Anemia, unspecified; E53.8 Deficiency of other specified B group vitamins; E66.9 Obesity, unspecified; Z68.35 Body mass index [BMI] 35.0-35.9, adult | CPT/HCPCS: 96127 ==

== ENCOUNTER 2025-06-06 08:45 | Outpatient (REF) | payer OTHER, SELFPAY | END 2025-06-06 08:46 | disposition home or self-care (01) | LOC: HO.LAB 08:45 | PROVIDERS: PCP Internal Medicine; Visit Provider Internal Medicine | DX: E78.00 Pure hypercholesterolemia, unspecified (principal) | CPT/HCPCS: 36415; 84443 ==